=== PATIENT | female | born 1945 | race Caucasian/White ===

== ENCOUNTER → 2024-01-18 | Emergency (ER) | payer OTHER, BC ==
[~2024-01-18] MED LIST: ACETAMINOPHEN 500 MG TAB ONE; DIAZEPAM 5 MG TABLET ONE; FENTANYL CITR 100 MCG/2 ML ONE; KETOROLAC 30 MG/ML INJ ONE; LIDOCAINE 4% PATCH ONE
--- OUTSIDE RECORDS SUMMARY | 2024-01-18 12:02 | XMS REPORT | Continuity of Care Document ---
Author Name Unknown Address [address] [facility] [place] [address] [facility] thconnect Address [address] [facility] [address] [place] [address] Care Team Providers Care Child Care Name Role Phone Alysha Murrieta Primary Care Physician [phone] Cassidy Greenwood Attending Clinician Unavailable SEAN MCKEON Attending Clinician Sean Cantu MD Attending Clinician [phone] Doctor Unassigned, [place] Attending Clinician U oma Craft, [facility] Attending Clinician UnavailLEIA Quijano Attending Clinician Unavailable Leia Lauren DO Attending Clinician [phone] SEAN MCKEON Admitting Clinician Sean Cantu MD Admitting Clinician [phone] LEIA LAUREN Admitting Clinician Unavailable Payers Payer Name Policy Type Policy Number Effective Date Expiration Date Source MEDICARE PART A \\T\\ B [id number] 2008 00:00:00 BCBS TRADITIONAL [id number] 2017 00:00:00 [employer] [facility] HMO C1 [id number] [facility] MEDICARE NOVITAS MB [id number] [facility] [id number] [facility] [id number] [facility] [id number] [facility] Problems Condition Name Condition Details Condition Category Status Onset Date Resolution Date Last Treatment Date Treating Clinician Comments Source No known active problems No known active problems Disease [facility] [id number] Pulmonary emphysema, unspecifie d emphysema type Problem Active [facility] Acid reflux Acid reflux Problem Active [facility] Allergic rhinitis Allergic rhinitis Problem Active [facility] Essential hypertensi on Essential hypertensi on Problem Active [facility] Depression Depression Problem Active [facility] Hypothyroi dism Hypothyroi dism Problem Active [facility] Asthma Asthma Problem Active [facility] Anxiety Anxiety Problem Active [facility] Allergies, Adverse Reactions, Alerts Allergy Name Allergy Type Status Severity Reaction(s) Onset Date Inactive Date Treating Clinician Comments Source MORPHINE DRUG INGREDI Active Hives 11-24 00:00: 00 [facility] Morphine Propensi ty to adverse reaction s Active Hives 11-24 00:00: 00 [facility] morphine morphine Active Unknown Com[facility] n [facility] Social History Social Habit Start Date Stop Date Quantity Comments Source History of Tobacco Use Current Smoker [facility] Sex Assigned At [facility] Exposure to SARS-CoV-2 (event) 2022-09-02 00:00:00 2022-09-12 10:13:00 Not sure [facility] Tobacco use and exposure 2022-08-20 00:00:00 2022-08-20 00:00:00 Smokeless tobacco non-user [facility] Smoking Status Start Date Stop Date Source Tobacco smoking consumption unknown [facility] Never smoked tobacco [facility] Current Smoker 2021-06-05 00:00:00 [facility] Medications Ordered Medication Name Filled Medication Name Start Date Stop Date Current Medication? Ordering Clinician Indication Dosage Frequency Signature (SIG) Comments Components Source water for irrigation irrigation solution 2021-11 17:44: 00 09-17 18:24 :22 No PRN, Starting on Thu09/17/22 at 1144, Until Thu09/17/22 at 1224, Routine, Intra-op [facility] sodium chloride (NS) injection 2021-11 17:43: 00 09-17 18:24 :22 No PRN, Starting on Thu09/17/22 at 1143, Until Thu09/17/22 at 1224, Routine, Intra-op [facility] neomycin-po lymyxin-dex amethasone (MAXITROL) 3.5 mg/g-10,000 unit/g-0.1 % ophthalmic ointment 2021-11 17:43: 00 09-17 18:24 :22 No PRN, Starting on Thu09/17/22 at 1143, Until Thu09/17/22 at 1224, Routine, Intra-op [facility] Hyaluronida se, Human Recomb. (HYLENEX) injection 2021-11 17:43: 00 09-17 18:24 :22 No PRN, Starting on Thu09/17/22 at 1143, Until Thu09/17/22 at 1224, Routine, Intra-op [facility] eye block syringe 11 mL 2021-11 17:42: 00 09-17 18:24 :22 No PRN, Starting on Thu09/17/22 at 1142, Until Thu09/17/22 at 1224, Intra-op [facility] EPINEPHrine 1:1,000 (1 mg/mL) (ADRENALIN) injection 2021-11 17:40: 00 09-17 18:24 :22 No PRN, Starting on Thu09/17/22 at 1140, Until Thu09/17/22 at 1224, Routine, Intra-op [facility] chondroitin sulf-sod hyaluronate (DUOVISC VISCO ELASTIC) intraocular injection 2021-11 17:40: 00 09-17 18:24 :22 No PRN, Starting on Thu09/17/22 at 1140, Until Thu09/17/22 at 1224, Routine, Intra-op [facility] dexamethaso ne (DECADRON PHOSPHATE) injection 2021-11 17:40: 00 09-17 18:24 :22 No PRN, Starting on Thu09/17/22 at 1140, Until Thu09/17/22 at 1224, Routine, Intra-op [facility] ceFAZolin (ANCEF) injection 2021-11 17:39: 00 09-17 18:24 :22 No PRN, Starting on Thu09/17/22 at 1139, Until Thu09/17/22 at 1224, SANJANA, Intra-op [facility] carbachoL (MIOSTAT) 0.01 % intraocular injection 2021-11 17:38: 00 09-17 18:24 :22 No PRN, Starting on Thu09/17/22 at 1138, Until Thu09/17/22 at 1224, Routine, Intra-op [facility] balanced salt irrig soln comb1 (BSS PLUS) ophthalmic solution 500 mL bag 2021-11 17:37: 00 09-17 18:24 :22 No PRN, Starting on Thu09/17/22 at 1137, Until Thu09/17/22 at 1224, Routine, Intra-op [facility] cyclopent 1%-tropic 1%-phenyl 2.5%-ketor 0.5% (MYDRIATIC #5) ophthalmic solution syringe 0.5 mL 2021-11 16:45: 00 09-17 16:58 :00 No .5mL 0.5 mL, Left Eye, ONCE, 1 dose, On Thu09/17/22 at 1045, Routine, [facility] 1,000 mL 2021-11 16:45: 00 09-17 16:58 :00 No 1000mL at 42 mL/hr, 1,000 mL, IV Infusion, ONCE, 1 dose, On Thu09/17/22 at 1045, Routine, DSU Pre-op [facility] cyclopent 1%-tropic 1%-phenyl 2.5%-ketor 0.5% (MYDRIATIC #5) ophthalmic solution syringe 0.5 mL 2021-11 16:45: 00 09-17 16:58 :00 No .5mL 0.5 mL, Left Eye, ONCE, 1 dose, On Thu09/17/22 at 1045, Routine, DSU Pre-op [facility] lactated ringers IV infusion 1,000 mL 2021-11 16:45: 00 09-17 16:58 :00 No 1000mL at 42 mL/hr, 1,000 mL, IV Infusion, ONCE, 1 dose, On Thu09/17/22 at 1045, Routine, DSU Pre-op [facility] pantoprazol e 40 mg EC tablet 2021-11 13:15: 30 Yes 40mg Take 40 mg by mouth in the morning. [facility] diphenhydrA MINE 25 mg capsule 2021-11 13:15: 30 Yes 25mg Take 25 mg by mouth every 6 (six) hours as needed for Allergies. [facility] pantoprazol e 40 mg EC tablet 2021-11 13:15: 30 Yes 40mg Take 40 mg by mouth in the morning. [facility] diphenhydrA MINE 25 mg capsule 2021-11 13:15: 30 Yes 25mg Take 25 mg by mouth every 6 (six) hours as needed for Allergies. [facility] pantoprazol e 40 mg EC tablet 2021-11 10:10: 51 Yes 40mg Take 40 mg by mouth in the morning. [facility] diphenhydrA MINE 25 mg capsule 2021-11 10:10: 51 Yes 25mg Take 25 mg by mouth every 6 (six) hours as needed for Allergies. [facility] sodium chloride (NS) injection 2021-11 0 17:39: 00 08-27 17:43 :26 No PRN, Starting on Thu08/27/22 at 1239, Until Thu08/27/22 at 1243, Routine, Intra-op [facility] neomycin-po lymyxin-dex amethasone (MAXITROL) 3.5 mg/g-10,000 unit/g-0.1 % ophthalmic ointment 2021-11 17:39: 00 08-27 17:43 :26 No PRN, Starting on Thu08/27/22 at 1239, Until Thu08/27/22 at 1243, Routine, [facility] dexamethaso ne (DECADRON PHOSPHATE) injection 2021-11 17:39: 00 08-27 17:43 :26 No PRN, Starting on Thu08/27/22 at 1239, Until Thu08/27/22 at 1243, Routine, Intra-op [facility] ceFAZolin (ANCEF) injection 2021-11 17:39: 00 08-27 17:43 :26 No PRN, Starting on Thu08/27/22 at 1239, Until Thu08/27/22 at 1243, SANJANA, Intra-op [facility] carbachoL (MIOSTAT) 0.01 % intraocular injection 2021-11 17:38: 00 08-27 17:43 :26 No PRN, Starting on Thu08/27/22 at 1238, Until Thu08/27/22 at 1243, Routine, Intra-op [facility] chondroitin sulf-sod hyaluronate (DUOVISC VISCO ELASTIC) intraocular injection 2021-11 17:29: 00 08-27 17:43 :26 No PRN, Starting on Thu08/27/22 at 1229, Until Thu08/27/22 at 1243, Routine, Intra-op [facility] EPINEPHrine 1:1,000 (1 mg/mL) (ADRENALIN) injection 2021-11 17:28: 00 08-27 17:43 :26 No PRN, Starting on Thu08/27/22 at 1228, Until Thu08/27/22 at 1243, Routine, Intra-op [facility] balanced salt irrig soln comb1 (BSS PLUS) ophthalmic solution 500 mL bag 2021-11 17:28: 00 08-27 17:43 :26 No PRN, Starting on Thu08/27/22 at 1228, Until Thu08/27/22 at 1243, Routine, Intra-op [facility] water for irrigation irrigation solution 2021-11 17:22: 00 08-27 17:43 :26 No PRN, Starting on Thu08/27/22 at 1222, Until Thu08/27/22 at 1243, Routine, Intra-op [facility] Hyaluronida se, Human Recomb. (HYLENEX) injection 2021-11 17:18: 00 08-27 17:43 :26 No PRN, Starting on Thu08/27/22 at 1218, Until Thu08/27/22 at 1243, Routine, Intra-op [facility] eye block syringe 11 mL 2021-11 17:18: 00 08-27 17:43 :26 No PRN, Starting on Thu08/27/22 at 1218, Until Thu08/27/22 at 1243, Intra-op [facility] cyclopent 1%-tropic 1%-phenyl 2.5%-ketor 0.5% (MYDRIATIC #5) ophthalmic solution syringe 0.5 mL 2021-11 15:45: 00 08-27 15:50 :00 No .5mL 0.5 mL, Right Eye, ONCE, 1 dose, On Thu08/27/22 at 1045, Routine, DSU Pre-op [facility] lactated ringers IV infusion 1,000 mL 2021-11 15:45: 00 08-27 15:50 :00 No 1000mL at 42 mL/hr, 1,000 mL, IV Infusion, ONCE, 1 dose, On Thu08/27/22 at 1045, Routine, DSU Pre-op [facility] cyclopent 1%-tropic 1%-phenyl 2.5%-ketor 0.5% (MYDRIATIC #5) ophthalmic solution syringe 0.5 mL 2021-11 15:45: 00 08-27 15:50 :00 No .5mL 0.5 mL, Right Eye, ONCE, 1 dose, On Thu08/27/22 at 1045, Routine, DSU Pre-op [facility] lactated ringers IV infusion 1,000 mL 2021-11 15:45: 00 08-27 15:50 :00 No 1000mL at 42 mL/hr, 1,000 mL, IV Infusion, ONCE, 1 dose, On Thu08/27/22 at 1045, Routine, DSU Pre-op [facility] pantoprazol e 40 mg EC tablet 2021-11 13:28: 43 Yes 40mg Take 40 mg by mouth in the morning. [facility] pantoprazol e 40 mg EC tablet 2021-11 13:28: 43 Yes 40mg Take 40 mg by mouth in the morning. [facility] pantoprazol e 40 mg EC tablet 2021-11 13:28: 43 Yes 40mg Take 40 mg by mouth in the morning. [facility] benzonatate 200 mg capsule 2021-11 00:00: 00 Yes 200mg Take 200 mg by mouth as needed. [facility] benzonatate 200 mg capsule 2021-11 00:00: 00 Yes 200mg Take 200 mg by mouth as needed. [facility] benzonatate 200 mg capsule 2021-11 00:00: 00 Yes 200mg Take 200 mg by mouth as needed. [facility] benzonatate 200 mg capsule 2021-11 00:00: 00 Yes 200mg Take 200 mg by mouth as needed. [facility] benzonatate 200 mg capsule 2021-11 00:00: 00 Yes 200mg Take 200 mg by mouth as needed. [facility] benzonatate 200 mg capsule 2021-11 00:00: 00 Yes 200mg Take 200 mg by mouth as needed. [facility] triamterene -hydrochlor othiazide 37.5-25 mg per capsule 2021-11 0- 00:00: 00 Yes 1{capsu le} Take 1 capsule by mouth in the morning. [facility] triamterene -hydrochlor othiazide 37.5-25 mg per capsule 2021-11 0-09 00:00: 00 Yes 1{capsu le} Take 1 capsule by mouth in the morning. [facility] triamterene -hydrochlor othiazide 37.5-25 mg per capsule 2021-11 0-09 00:00: 00 Yes 1{capsu le} Take 1 capsule by mouth in the morning. [facility] triamterene -hydrochlor othiazide 37.5-25 mg per capsule 2021-11 0-09 00:00: 00 Yes 1{capsu le} Take 1 capsule by mouth in the morning. [facility] triamterene -hydrochlor othiazide 37.5-25 mg per capsule 2021-11 0- 00:00: 00 Yes 1{capsu le} Take 1 capsule by mouth in the morning. [facility] triamterene -hydrochlor othiazide 37.5-25 mg per capsule 2021-11 0 00:00: 00 Yes 1{capsu le} Take 1 capsule by mouth in the morning. [facility] metoprolol succinate XL 50 mg 24 hr tablet 07-28 00:00: 00 Yes 50mg Take 50 mg by mouth in the morning. [facility] albuterol 90 mcg/actuati on inhaler 07-28 00:00: 00 Yes 2{puff} Inhale 2 Puffs as needed. [facility] metoprolol succinate XL 50 mg 24 hr tablet 07-28 00:00: 00 Yes 50mg Take 50 mg by mouth in the morning. [facility] albuterol 90 mcg/actuati on inhaler 07-28 00:00: 00 Yes 2{puff} Inhale 2 Puffs as needed. [facility] metoprolol succinate XL 50 mg 24 hr tablet 07-28 00:00: 00 Yes 50mg Take 50 mg by mouth in the morning. [facility] albuterol 90 mcg/actuati on inhaler 07-28 00:00: 00 Yes 2{puff} Inhale 2 Puffs as needed. [facility] metoprolol succinate XL 50 mg 24 hr tablet 07-28 00:00: 00 Yes 50mg Take 50 mg by mouth in the morning. [facility] albuterol 90 mcg/actuati on inhaler 07-28 00:00: 00 Yes 2{puff} Inhale 2 Puffs as needed. [facility] metoprolol succinate XL 50 mg 24 hr tablet 07-28 00:00: 00 Yes 50mg Take 50 mg by mouth in the morning. [facility] albuterol 90 mcg/actuati on inhaler 07-28 00:00: 00 Yes 2{puff} Inhale 2 Puffs as needed. [facility] metoprolol succinate XL 50 mg 24 hr tablet 07-28 00:00: 00 Yes 50mg Take 50 mg by mouth in the morning. [facility] albuterol 90 mcg/actuati on inhaler 07-28 00:00: 00 Yes 2{puff} Inhale 2 Puffs as needed. [facility] cetirizine 10 mg tablet 07-28 00:00: 00 08-20 00:00 :00 No 10mg Take 10 mg by mouth in the morning. [facility] cetirizine 10 mg tablet 07-28 00:00: 00 08-20 00:00 :00 No 10mg Take 10 mg by mouth in the morning. [facility] FLUoxetine 20 mg capsule 07-14 00:00: 00 Yes 20mg Take 20 mg by mouth in the morning. [facility] buPROPion XL 300 mg 24 hr tablet 07-14 00:00: 00 Yes 300mg Take 300 mg by mouth every morning. [facility] FLUoxetine 20 mg capsule 07-14 00:00: 00 Yes 20mg Take 20 mg by mouth in the morning. [facility] buPROPion XL 300 mg 24 hr tablet 2-0 12 00:00: 00 Yes 300mg Take 300 mg by mouth every morning. [facility] FLUoxetine 20 mg capsule 2021-0 07-14 00:00: 00 Yes 20mg Take 20 mg by mouth in the morning. [facility] buPROPion XL 300 mg 24 hr tablet 2021-0 07-14 00:00: 00 Yes 300mg Take 300 mg by mouth every morning. [facility] FLUoxetine 20 mg capsule 2021-0 07-14 00:00: 00 Yes 20mg Take 20 mg by mouth in the morning. [facility] buPROPion XL 300 mg 24 hr tablet 2021-0 07-14 00:00: 00 Yes 300mg Take 300 mg by mouth every morning. [facility] FLUoxetine 20 mg capsule 2021-0 07-14 00:00: 00 Yes 20mg Take 20 mg by mouth in the morning. [facility] buPROPion XL 300 mg 24 hr tablet 2021-0 07-14 00:00: 00 Yes 300mg Take 300 mg by mouth every morning. [facility] FLUoxetine 20 mg capsule 2021-0 07-14 00:00: 00 Yes 20mg Take 20 mg by mouth in the morning. [facility] buPROPion XL 300 mg 24 hr tablet 2021-0 07-14 00:00: 00 Yes 300mg Take 300 mg by mouth every morning. [facility] montelukast 10 mg tablet 2021-0 07-08 00:00: 00 Yes 10mg Take 10 mg by mouth in the morning. [facility] montelukast 10 mg tablet 2-0 07-08 00:00: 00 Yes 10mg Take 10 mg by mouth in the morning. [facility] montelukast 10 mg tablet 2021-0 07-08 00:00: 00 Yes 10mg Take 10 mg by mouth in the morning. [facility] montelukast 10 mg tablet 2-0 07-08 00:00: 00 Yes 10mg Take 10 mg by mouth in the morning. [facility] montelukast 10 mg tablet 07-08 00:00: 00 Yes 10mg Take 10 mg by mouth in the morning. [facility] montelukast 10 mg tablet 07-08 00:00: 00 Yes 10mg Take 10 mg by mouth in the morning. [facility] EUTHYROX 75 mcg tablet 07-03 00:00: 00 Yes 75ug Take 75 mcg by mouth every morning. [facility] EUTHYROX 75 mcg tablet 07-03 00:00: 00 Yes 75ug Take 75 mcg by mouth every morning. [facility] EUTHYROX 75 mcg tablet 0 07-03 00:00: 00 Yes 75ug Take 75 mcg by mouth every morning. [facility] EUTHYROX 75 mcg tablet 07-03 00:00: 00 Yes 75ug Take 75 mcg by mouth every morning. [facility] EUTHYROX 75 mcg tablet 07-03 00:00: 00 Yes 75ug Take 75 mcg by mouth every morning. [facility] EUTHYROX 75 mcg tablet 07-03 00:00: 00 Yes 75ug Take 75 mcg by mouth every morning. [facility] TRELEGY ELLIPTA 100-62.5-25 mcg DsDv 2021-0 07-02 00:00: 00 Yes 1{puff} Take 1 Puff by mouth daily. [facility] TRELEGY ELLIPTA 100-62.5-25 mcg DsDv 2-0 07-02 00:00: 00 Yes 1{puff} Take 1 Puff by mouth daily. [facility] TRELEGY ELLIPTA 100-62.5-25 mcg DsDv 2-0 07-02 00:00: 00 Yes 1{puff} Take 1 Puff by mouth daily. [facility] TRELEGY ELLIPTA 100-62.5-25 mcg DsDv 2-0 07-02 00:00: 00 Yes 1{puff} Take 1 Puff by mouth daily. [facility] TRELEGY ELLIPTA 100-62.5-25 mcg DsDv 2-0 8 00:00: 00 Yes 1{puff} Take 1 Puff by mouth daily. [facility] TRELEGY ELLIPTA 100-62.5-25 mcg DsDv 8-31 00:00: 00 Yes 1{puff} Take 1 Puff by mouth daily. [facility] gabapentin 600 mg tablet 0 8-12 00:00: 00 Yes 600mg Take 600 mg by mouth in the morning. [facility] cetirizine HCl (CETIRIZINE ORAL) 8-12 00:00: 00 Yes 10mg Take 10 mg by mouth daily. [facility] gabapentin 600 mg tablet 0 812 00:00: 00 Yes 600mg Take 600 mg by mouth in the morning. [facility] cetirizine HCl (CETIRIZINE ORAL) 812 00:00: 00 Yes 10mg Take 10 mg by mouth daily. [facility] gabapentin 600 mg tablet 0 812 00:00: 00 Yes 600mg Take 600 mg by mouth in the morning. [facility] cetirizine HCl (CETIRIZINE ORAL) 0 812 00:00: 00 Yes 10mg Take 10 mg by mouth daily. [facility] gabapentin 600 mg tablet 812 00:00: 00 Yes 600mg Take 600 mg by mouth in the morning. [facility] cetirizine HCl (CETIRIZINE ORAL) 0 8-12 00:00: 00 Yes 10mg Take 10 mg by mouth daily. [facility] gabapentin 600 mg tablet 0 812 00:00: 00 Yes 600mg Take 600 mg by mouth in the morning. [facility] cetirizine HCl (CETIRIZINE ORAL) 0 8-12 00:00: 00 Yes 10mg Take 10 mg by mouth daily. [facility] gabapentin 600 mg tablet 0 8-12 00:00: 00 Yes 600mg Take 600 mg by mouth in the morning. [facility] cetirizine HCl (CETIRIZINE ORAL) 2022-0 8-12 00:00: 00 Yes 10mg Take 10 mg by mouth daily. [facility] NaCl 0.9% (NS) bolus infusion 1,000 mL 11-25 01:30: 00 11-25 03:09 :00 No 1000mL at 999 mL/hr, 1,000 mL, IV Infusion, ONCE, 1 dose, On 11/24/21 at 1930, STAT [facility] No known medications 11-24 21:42: 38 No [facility] No known medications 11-24 21:42: 38 No No known medication s [facility] No known medications 11-24 21:42: 38 No No known medication s [facility] predniSONE 20 MG predniSONE 20 MG 04-24 00:00: 00 05-08 00:00 :00 No 1{table t} predniSONE 20 MG Levothyroxi ne Sodium 75 MCG Levothyroxi ne Sodium 75 MCG No QD Levothyrox ine Sodium 75 MCG Triamterene -HCTZ 37.5-25 MG Triamterene -HCTZ 37.5-25 MG No QD Triamteren e-HCTZ 37.5-25 MG Fluticasone Propionate 50 MCG/ACT Fluticasone Propionate 50 MCG/ACT No QD Fluticason e Propionate 50 MCG/ACT Albuterol Sulfate HFA 108 (90 Base) MCG/ACT Albuterol Sulfate HFA 108 (90 Base) MCG/ACT No 6xD Albuterol Sulfate HFA 108 (90 Base) MCG/ACT Fluoxetine HCl 20 MG Fluoxetine HCl 20 MG No QD Fluoxetine HCl 20 MG Pantoprazol e Sodium 40 MG Pantoprazol e Sodium 40 MG No Pantoprazo le Sodium 40 MG Montelukast Sodium 10 MG Montelukast Sodium 10 MG No QD Montelukas t Sodium 10 MG Metoprolol Succinate ER 50 MG Metoprolol Succinate ER 50 MG No QD Metoprolol Succinate ER 50 MG BuPROPion HCl ER (XL) 300 MG BuPROPion HCl ER (XL) 300 MG No QD BuPROPion HCl ER (XL) 300 MG Gabapentin 600 MG Gabapentin 600 MG No QD Gabapentin 600 MG Gabapentin 600 MG Gabapentin 600 MG No QD Gabapentin 600 MG Metoprolol Succinate ER 50 MG Metoprolol Succinate ER 50 MG No QD Metoprolol Succinate ER 50 MG buPROPion HCl ER (XL) 300 MG buPROPion HCl ER (XL) 300 MG No QD buPROPion HCl ER (XL) 300 MG Montelukast Sodium 10 MG Montelukast Sodium 10 MG No QD Montelukas t Sodium 10 MG FLUoxetine HCl 20 MG FLUoxetine HCl 20 MG No QD FLUoxetine HCl 20 MG Triamterene -HCTZ 37.5-25 MG Triamterene -HCTZ 37.5-25 MG No QD Triamteren e-HCTZ 37.5-25 MG Pantoprazol e Sodium 40 MG Pantoprazol e Sodium 40 MG No Pantoprazo le Sodium 40 MG Albuterol Sulfate HFA 108 (90 Base) MCG/ACT Albuterol Sulfate HFA 108 (90 Base) MCG/ACT No 6xD Albuterol Sulfate HFA 108 (90 Base) MCG/ACT Levothyroxi ne Sodium 75 MCG Levothyroxi ne Sodium 75 MCG No QD Levothyrox ine Sodium 75 MCG Fluticasone Propionate 50 MCG/ACT Fluticasone Propionate 50 MCG/ACT No QD Fluticason e Propionate 50 MCG/ACT Gabapentin 600 MG Gabapentin 600 MG No QD Gabapentin 600 MG FLUoxetine HCl 20 MG FLUoxetine HCl 20 MG No QD FLUoxetine HCl 20 MG Metoprolol Succinate ER 50 MG Metoprolol Succinate ER 50 MG No QD Metoprolol Succinate ER 50 MG Triamterene -HCTZ 37.5-25 MG Triamterene -HCTZ 37.5-25 MG No QD Triamteren e-HCTZ 37.5-25 MG Montelukast Sodium 10 MG Montelukast Sodium 10 MG No QD Montelukas t Sodium 10 MG Albuterol Sulfate HFA 108 (90 Base) MCG/ACT Albuterol Sulfate HFA 108 (90 Base) MCG/ACT No 6xD Albuterol Sulfate HFA 108 (90 Base) MCG/ACT buPROPion HCl ER (XL) 300 MG buPROPion HCl ER (XL) 300 MG No QD buPROPion HCl ER (XL) 300 MG Fluticasone Propionate 50 MCG/ACT Fluticasone Propionate 50 MCG/ACT No QD Fluticason e Propionate 50 MCG/ACT Pantoprazol e Sodium 40 MG Pantoprazol e Sodium 40 MG No Pantoprazo le Sodium 40 MG Levothyroxi ne Sodium 75 MCG Levothyroxi ne Sodium 75 MCG No QD Levothyrox ine Sodium 75 MCG Gabapentin 600 MG Gabapentin 600 MG No QD Gabapentin 600 MG FLUoxetine HCl 20 MG FLUoxetine HCl 20 MG No QD FLUoxetine HCl 20 MG Metoprolol Succinate ER 50 MG Metoprolol Succinate ER 50 MG No QD Metoprolol Succinate ER 50 MG Triamterene -HCTZ 37.5-25 MG Triamterene -HCTZ 37.5-25 MG No QD Triamteren e-HCTZ 37.5-25 MG Montelukast Sodium 10 MG Montelukast Sodium 10 MG No QD Montelukas t Sodium 10 MG Albuterol Sulfate HFA 108 (90 Base) MCG/ACT Albuterol Sulfate HFA 108 (90 Base) MCG/ACT No 6xD Albuterol Sulfate HFA 108 (90 Base) MCG/ACT buPROPion HCl ER (XL) 300 MG buPROPion HCl ER (XL) 300 MG No QD buPROPion HCl ER (XL) 300 MG Fluticasone Propionate 50 MCG/ACT Fluticasone Propionate 50 MCG/ACT No QD Fluticason e Propionate 50 MCG/ACT Pantoprazol e Sodium 40 MG Pantoprazol e Sodium 40 MG No Pantoprazo le Sodium 40 MG Levothyroxi ne Sodium 75 MCG Levothyroxi ne Sodium 75 MCG No QD Levothyrox ine Sodium 75 MCG Symbicort 160-4.5 MCG/ACT Symbicort 160-4.5 MCG/ACT 09-01 00:00 :00 No BID Symbicort 160-4.5 MCG/ACT Symbicort 160-4.5 MCG/ACT Symbicort 160-4.5 MCG/ACT 09-01 00:00 :00 No BID Symbicort 160-4.5 MCG/ACT Symbicort 160-4.5 MCG/ACT Symbicort 160-4.5 MCG/ACT 09-01 00:00 :00 No BID Symbicort 160-4.5 MCG/ACT Symbicort 160-4.5 MCG/ACT Symbicort 160-4.5 MCG/ACT 09-01 00:00 :00 No BID Symbicort 160-4.5 MCG/ACT Vital Signs Vital Name Observation Time Observation Value Comments S ource Systolic blood pressure 2022-09-17 18:40:00 121 mm[Hg] [facility] Diastolic blood pressure 2022-09-17 18:40:00 54 mm[Hg] [facility] Heart rate 2022-09-17 18:40:00 53 /min [facility] Respiratory rate 2022-09-17 18:40:00 15 /min [facility] Oxygen saturation in Arterial blood by Pulse oximetry 2022-09-17 18:40:00 98 /min [facility] Body temperature 2022-09-17 18:26:00 36.56 Eneida [facility] Body height 2022-09-17 16:48:[address] [facility] Body weight 2022-09-17 16:48:00 54.432 kg [facility] BMI 2022-09-17 16:48:00 20.92 kg/m2 [facility] Systolic blood pressure 2022-09-17 16:48:00 147 mm[Hg] [facility] Diastolic blood pressure 2022-09-17 16:48:00 43 mm[Hg] [facility] Heart rate 2022-09-17 16:48:00 44 /min [facility] Body temperature 2022-09-17 16:48:00 36.22 Eneida [facility] Respiratory rate 2022-09-17 16:48:00 12 /min [facility] Body height 2022-09-17 16:48:[address] [facility] Body weight 2022-09-17 16:48:00 54.432 kg [facility] BMI 2022-09-17 16:48:00 20.92 kg/m2 [facility] Oxygen saturation in Arterial blood by Pulse oximetry 2022-09-17 16:48:00 98 /min [facility] Heart rate 2022-08-27 18:00:00 56 /min [facility] Respiratory rate 2022-08-27 18:00:00 51 /min [facility] Systolic blood pressure 2022-08-27 17:59:00 153 mm[Hg] [facility] Diastolic blood pressure 2022-08-27 17:59:00 54 mm[Hg] [facility] Body temperature 2022-08-27 17:59:00 36.11 Eneida [facility] Oxygen saturation in Arterial blood by Pulse oximetry 2022-08-27 17:57:00 95 /min [facility] Body weight 2022-08-20 16:00:00 54.432 kg [facility] BMI 2022-08-20 16:00:00 21.26 kg/m2 [facility] Systolic blood pressure 2022-08-27 15:47:00 161 mm[Hg] [facility] Diastolic blood pressure 2022-08-27 15:47:00 58 mm[Hg] [facility] Heart rate 2022-08-27 15:47:00 48 /min [facility] Body temperature 2022-08-27 15:47:00 36.11 Eneida [facility] Respiratory rate 2022-08-27 15:47:00 16 /min [facility] Oxygen saturation in Arterial blood by Pulse oximetry 2022-08-27 15:47:00 97 /min [facility] Body weight 2022-08-20 16:00:00 54.432 kg [facility] BMI 2022-08-20 16:00:00 21.26 kg/m2 [facility] Heart rate 2021-11-25 03:10:00 52 /min [facility] Respiratory rate 2021-11-25 03:10:00 15 /min [facility] Oxygen saturation in Arterial blood by Pulse oximetry 2021-11-25 03:10:00 94 /min [facility] Systolic blood pressure 2021-11-25 03:00:00 114 mm[Hg] [facility] Diastolic blood pressure 2021-11-25 03:00:00 62 mm[Hg] [facility] Body temperature 2021-11-25 01:10:00 37.5 Eneida [facility] Body height 2021-11-25 01:10:00 160 cm [facility] Body weight 2021-11-25 01:10:00 55.339 kg [facility] BMI 2021-11-25 01:10:00 21.61 kg/m2 [facility] height 2021-06-05 10:00:00 62 [in_i] Commo n [facility] weight 2021-06-05 10:00:00 126.6 [lb_av] Co mmon [facility] temperature 2021-06-05 10:00:00 98.2 [degF] Com mon [facility] bmi 2021-06-05 10:00:00 23.15 kg/m2 Comm on [facility] oximetry 2021-06-05 10:00:00 96 % Commo n [facility] respiratory rate 2021-06-05 10:00:00 18 /min [facility] blood pressure systolic 2021-06-05 10:00:00 124 mm[Hg] [facility] blood pressure diastolic 2021-06-05 10:00:00 55 mm[Hg] [facility] blood pressure diastolic 2021-06-05 10:00:00 55 mm[Hg] [facility] height 2021-06-05 10:00:00 62 [in_i] Commo n [facility] weight 2021-06-05 10:00:00 126.6 [lb_av] Co mmon [facility] temperature 2021-06-05 10:00:00 98.2 [degF] Com mon [facility] bmi 2021-06-05 10:00:00 23.15 kg/m2 Comm on [facility] oximetry 2021-06-05 10:00:00 96 % Commo n [facility] blood pressure systolic 2021-06-05 10:00:00 124 mm[Hg] [facility] height 2021-03-05 09:00:00 62 [in_i] Commo n [facility] weight 2021-03-05 09:00:00 125.8 [lb_av] Co mmon [facility] temperature 2021-03-05 09:00:00 98.4 [degF] Com mon [facility] bmi 2021-03-05 09:00:00 23.01 kg/m2 Comm on [facility] oximetry 2021-03-05 09:00:00 95 % Commo n [facility] respiratory rate 2021-03-05 09:00:00 16 /min [facility] blood pressure systolic 2021-03-05 09:00:00 119 mm[Hg] [facility] blood pressure diastolic 2021-03-05 09:00:00 57 mm[Hg] [facility] Procedures Procedure Date / Time Performed Performing Clinician Source PHACOEMULSIFICATION OF CATARACT WITH INTRAOCULAR LENS IMPLANT 2022-09-17 17:48:00 Sean Mckeon [facility] ASSIGNMENT OF BENEFITS 2022-09-15 16:29:04 Doctor Unassigned, [place] [facility] PHACOEMULSIFICATION OF CATARACT WITH INTRAOCULAR LENS IMPLANT 2022-08-27 17:06:00 Sean Mckeon [facility] POCT GLUCOSE (AUTOMATED) 2022-08-27 15:47:00 Sean Mckeon [facility] POCT GLUCOSE (AUTOMATED) 2022-08-27 15:47:00 Sean Mckeon [facility] DAY SURGERY - ADC 2022-08-27 05:01:00 Doctor Unassigned, [place] [facility] ASSIGNMENT OF BENEFITS 2022-08-18 17:10:39 Doctor Unassigned, [place] [facility] URINALYSIS 2021-11-25 02:38:00 Leia Lauren [facility] XR CHEST 1 VW 2021-11-25 01:32:14 Leia Lauren [facility] NOTICE OF PRIVACY PRACTICES 2021-11-25 01:31:09 Doctor Unassigned, [place] [facility] CONSENT/REFUSAL FOR DIAGNOSI S AND TREATMENT 2021-11-25 01:29:59 Doctor Unassigned, [place] [facility] CONSENT/REFUSAL FOR DIAGNOSI S AND TREATMENT 2021-11-25 01:29:58 Doctor Unassigned, [place] [facility] TROPONIN I 2021-11-25 01:27:00 Leia Lauren [facility] COMP. METABOLIC PANEL ([id number]) 2021-11-25 01:27:00 Leia Lauren [facility] CBC WITH DIFF 2021-11-25 01:27:00 Leia Lauren [facility] COVID-19 (ID NOW RAPID TESTING) 2021-11-25 01:27:00 Leia Lauren [facility] Encounters Start Date/Time End Date/Time Encounter Type Admission Type Attending [facility] Care Facility Care Department Encounter ID Source 2021-11-27 12:58:[address] [facility] [id number] [facility] 2022-09-17 10:43:00 2022-09-17 12:51:00 Outpatient SEAN MATTHEWS [facility] [id number] [facility] 2022-09-17 10:43:00 2022-09-17 12:51:[address] [id number] [id number] [id number] [facility] 2022-09-17 11:26:00 2022-09-17 11:59:00 Surgery [facility] [id number] 350.1.13.10 [id number] [id number] [facility] 2022-09-15 00:00:00 2022-09-15 00:00:00 Orders Only Doctor Unassigned, [place] [facility] [id number] 350.1.13.10 4.2.7.2.686 [id number] [facility] 2022-08-27 10:32:00 2022-08-27 13:12:00 Outpatient [facility] [id number] [facility] 2022-08-27 10:32:00 2022-08-27 13:12:00 Hospital Encounter Sean Mckeon [facility] [place] [id number] 350.1.13.10 4.2.7.2.686 [id number] [facility] 2022-08-27 11:11:00 2022-08-27 11:44:00 Surgery Sean Mckeon [facility] [place] [id number] [id number] 4.2.7.2.686 [id number] [facility] 2022-08-27 00:00:00 2022-08-27 00:00:00 Orders Only Doctor Unassigned, [place] [facility] [id number] 350.1.13.10 4.2.7.2.686 [id number] [facility] 2022-08-18 11:45:00 2022-08-18 12:00:00 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, 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 Main Sean Mckeon [facility] [id number] 350.1.13.10 4.2.7.2.686 [id number] [facility] 2022-08-18 11:45:00 2022-08-18 11:45:00 Outpatient R SEAN MCKEON [facility] [id number] [facility] 2022-08-18 00:00:00 2022-08-18 00:00:00 Orders Only Doctor Unassigned, [place] [facility] 1.20.114 350.1.13.10 4.2.7.2.686 [id number] [facility] 2021-11-24 19:03:00 2021-11-24 21:55:00 Emergency X LEIA LAUREN [facility] ERT [id number] [facility] 2021-11-24 19:03:00 2021-11-24 21:55:00 Emergency Leia Lauren [facility] [id number] 350.1.13.10 4.2.7.2.686 [id number] [facility] 2021-06-05 00:00:00 2021-06-05 00:00:00 OFFICE VISIT ESTAB PT LEVEL 4 STLMLC STLMLC [id number] [facility] 2021-06-05 00:00:00 2021-06-05 00:00:00 SUB ANNUAL [facility] VISIT STLMLC STLMLC [id number] [facility] 2021-04-24 00:00:00 2021-04-24 00:00:00 (TEL) STLMLC STLMLC [id number] [facility] 2021-03-05 00:00:00 2021-03-05 00:00:00 OFFICE VISIT NEW PT LEVEL 4 STLMLC STLMLC [id number] [facility] Results Test Description Test Time Test Comments Results Result Co mments Source [facility] 15:53:58* Test Item Value Reference Range Interpretation Comme nts POCT GLU (test code = 0586701276) 90 mg/dL 70-110 Lab Interpretation (test cod e = 42866-5) Normal [id number] 02:20:46* Test Item Value Reference Range Interpretation Comments TROPONIN I (test code = 8489168051) 0.006 ng/mL See_Comment [Automated message] The system which generated this result transmitted reference range: <=0.034. The reference range was not used to interpret this result as normal/abnormal. MARCO (test code = MARCO) Reference (Normal) Range (defined by the 99th percentile reference limit): <= 0.034 ng/mL Note: Cardiac troponin begins to rise 3-4 hours after the onset of ischemia. Repeat in 4-6 hours if the sample was drawn within 3-4 hours of the onset of the symptom and found normal. Diagnosis of myocardial injury is made with acute changes in cTn concentrations with at least one serial sample above the 99th percentile upper reference limit (URL), taken together with the patient's clinical presentation. Biotin has been reported to cause a negative bias, interpret results relative to patient's use of biotin. Lab Interpretation (test code = 04271-7) Normal [facility]. METABOLIC PANEL (86991)2021-11-25 02:08:03* Test Item Value Reference Range Interpretation Comme nts NA (test code = 2661416954) 128 mmol/L 135-145 L K (test code = 4240159109) 4.1 mmol/L 3.5-5.0 CL (test code = 5496722182) 97 mmol/L 98-108 L CO2 TOTAL (test code = 6797754712) 26 mmol/L 23-31 AGAP (test code = 5684571580) 2-16 BUN (test code = 8669132256) 17 mg/dL 7-23 GLUCOSE (test code = 6236258493) 104 mg/dL 70-110 CREATININE (test code = 3861577629) 0.97 mg/dL 0.50-1.04 TOTAL BILI (test code = 2205612306) 0.5 mg/dL 0.1-1.1 CALCIUM (test code = 1630481353) 8.7 mg/dL 8.6-10.6 T PROTEIN (test code = 2784001803) 6.5 g/dL 6.3-8.2 ALBUMIN (test code = 1173784815) 3.9 g/dL 3.5-5.0 ALK PHOS (test code = 5530830089) 85 U/L 34-122 ALTv (test code = 1742-6) 15 U/L 5-35 AST(SGOT) (test code = 4680627657) 27 U/L 13-40 eGFR (test code = 8866649672) mL/min/1.73m2 MARCO (test code = MARCO) Association of Glomerular Filtration Rate (GFR) and Staging of Kidney Disease* + --+ --+ ------+| GFR (mL/min/1.73 m2) ?| With Kidney Damage ?| ?Without Kidney Damage+ --------+ --------+ +| ?>90 ?| ?Stage one ?| ? Normal ?+ ---+ ---+ -------+| ?60-89 ?| ?Stage two ?| ? Decreased GFR ? + --+ --+ ------+| ?30-59 ?| ?Stage three ?| ? Stage three ? + --+ --+ ------+| ?15-29 ?| ?Stage four ? | ? Stage four ?+ ---+ ---+ -------+| ?<15 (or dialysis) ? ?| ?Stage five ? | ? Stage five ?+ ---+ ---+ -------+ *Each stage assumes the associated GFR level has been in effect for at least three months. ?Stages 1 to 5, with or without kidney disease, indicate chronic kidney disease. Notes: Determination of stages one and two (with eGFR >59mL/min/1.73 m2) requires estimation of kidney damage for at least three months as defined by structural or functional abnormalities of the kidney, manifested by either:Pathological abnormalities or Markers of kidney damage (including abnormalities in the composition of the blood or urine or abnormalities in imaging tests). Lab Interpretation (test code = 13775-5) Abnormal [facility] WITH [id number] 01:51:42* Test Item Value Reference Range Interpretation Comme nts WBC (test code = 6690-2) See_Comment [Quaero] The system which generated this result transmitted reference range: 4.30 - 11.10 10*3/?L. The reference range was not used to interpret this result as normal/abnormal. RBC (test code = 789-8) See_Comment [Quaero] The system which generated this result transmitted reference range: 3.93 - 5.25 10*6/?L. The reference range was not used to interpret this result as normal/abnormal. HGB (test code = 718-7) 13.6 g/dL 11.6-15.0 HCT (test code = 4544-3) 38.8 % 35.7-45.2 MCV (test code = 787-2) 90.4 fL 80.6-95.5 MCH (test code = 785-6) 31.7 pg 25.9-32.8 MCHC (test code = 786-4) 35.1 g/dL 31.6-35.1 RDW-SD (test code = 72469-4) 39.7 fL 39.0-49.9 RDW-CV (test code = 788-0) 12.0 % 12.0-15.5 PLT (test code = 777-3) See_Comment [Automated messa ge] The system which generated this result transmitted reference range: 166 - 358 10*3/?L. The reference range was not used to interpret this result as normal/abnormal. MPV (test code = 47956-4) 9.4 fL 9.5-12.9 L NRBC/100 WBC (test code = 7434919158) See_Comment [Automated [employer] ssage] The system which generated this result transmitted reference range: 0.0 - 10.0 /100 WBCs. The reference range was not used to interpret this result as normal/abnormal. NRBC x10^3 (test code = 0918283878) <0.01 See_Comment [Automated messa ge] The system which generated this result transmitted reference range: 10*3/?L. The reference range was not used to interpret this result as normal/abnormal. GRAN MAT (NEUT) % (test code = 770-8) 78.1 % IMM GRAN % (test code = 3096783916) 0.30 % LYMPH % (test code = 736-9) 11.8 % MONO % (test code = 5905-5) 7.3 % EOS % (test code = 713-8) 1.9 % BASO % (test code = 706-2) 0.6 % GRAN MAT x10^3(ANC) (test code = 3995146483) 7.32 10*3/uL 1.88-7.09 H IMM GRAN x10^3 (test code = 7519391592) 0.03 10*3/uL 0.00-0.06 LYMPH x10^3 (test code = 731-0) 1.11 10*3/uL 1.32-3.29 L MONO x10^3 (test code = 742-7) 0.69 10*3/uL 0.33-0.92 EOS x10^3 (test code = 711-2) 0.18 10*3/uL 0.03-0.39 BASO x10^3 (test code = 704-7) 0.06 10*3/uL 0.01-0.07 Lab Interpretation (test code = 80357-2) Abnormal [facility]"
--- NOTE | 2024-01-18 13:42 | RAD REPORT ---
EXAM DESCRIPTION: CT - Pelvis Wo Cont - 01/18/2024 1:02 pm CLINICAL HISTORY: fall COMPARISON: Spine Lumbar Wo Con dated 01/18/2024 TECHNIQUE: Thin cut axial CT imaging of the pelvis was performed without IV contrast. Multiplanar re formats were generated and reviewed. All CT scans are performed using dose optimization technique as appropriate and may include automated exposure control or mA/KV adjustment according to patient size. FINDINGS: Mildly comminuted and displaced fractures of the left pubic bone mildly displaced fracture components also extending along the left superior pubic ramus. Non loculated hyperdense blood along the suprapubic space, dissecting along the anterior lower abdomi nal wall bilaterally and along the lower left pelvic sidewall. No dilated bowel loops or bowel wall thickening. No free air, or discrete fluid collection/hematoma. No hernia, mass or bulky lymphadenopathy. The urinary bladder is without significant finding. Lumbosacral degenerative changes are better assessed on the dedicated lumbar spine CT. IMPRESSION: Mildly comminuted and displaced fractures of the left pubic bone and left superior pubic ramus. Non loculated hyperdense blood extending along the lower anterior abdominal wall, suprapubic space, a nd adjacent left pelvic sidewall.
--- NOTE | 2024-01-18 13:51 | RAD REPORT ---
EXAM DESCRIPTION: CT - Spine Lumbar Wo Con - 01/18/2024 1:00 pm CLINICAL HISTORY: fall COMPARISON: Pelvis Wo Cont dated 01/18/2024 TECHNIQUE: Axial noncontrast CT imaging of the lumbar spine was performed with coronal and sagittal re-formatted images. All CT scans are performed using dose optimization technique as appropriate and may include automated exposure control or mA/KV adjustment according to patient size. FINDINGS: No acute lumbar spine fracture seen. No aggressive marrow pattern or subluxation. Paraspinal tissues are normal in thickness. No paraspinal abscess or hematoma seen. Intervertebral disc disease assessment is inherently limited by CT. Within these limitations, multile rossana spondylotic changes are present generally worse on the left, with asymmetric degrees of disc heig ht loss and accompanying endplate osteophytosis on the right at L2-3 and L3-4 and on the left at L4-5 and L5-S1, resulting in mild S shaped scoliotic deformity. At L1-2: Mild right neural foraminal narrowing due to asymmetric disc bulge. At L2-3: Minimal retrolisthesis of L2 over L3 small. Facet arthropathy and endplate spurring contribu te to right lateral recess narrowing. Central canal is otherwise patent. Moderate to severe right and mild left neural foraminal narrowing At L3-4: Endplate and facet arthropathy contribute to lateral recess narrowing more so on the left. C entral canal is otherwise patent. Right severe and left moderate neural foraminal narrowing. At L4-5: Circumferential disc bulge with endplate remodeling worse on the left contribute to left mod erate to severe and right moderate neural foraminal narrowing. Central canal is patent. At L5-S1: Small circumferential disc bulge with superimposed left subarticular/foraminal extrusion an d asymmetric facet arthropathy worse on the left contribute to severe left and moderate right neural foraminal narrowing. Central canal is patent. Dense atherosclerotic calcifications of the aorta. Left renal artery stent in place. Left diaphragmat ic eventration or elevation. IMPRESSION: No acute fracture or subluxation of the lumbar spine. Multilevel spondylotic lumbar spine changes contributing to degrees of left more than right lateral r ecess narrowing at L3-4 and variable degrees of bony neural foraminal narrowing up to severe on the l eft at L5-S1 and on the right at L3-4. No significant bony central canal stenosis. Please consider MRI follow-up for assessment of disc disease and degrees of neural impingement if cli nically desired.
--- NOTE | 2024-01-18 14:09 | ER ---
Nurse's Notes [facility] Name: Terese Hernandez Age: 78 yrs Sex: Female : 1945 Arrival Date: 01/18/2024 Time: 11:59 Bed 17 Private MD: Renaldo Ayala Diagnosis: Pubic Fracture Presentation: 01/17 12:17 Chief complaint: EMS states: left hip pain after a trip and fall this morning. cp4 Coronavirus screen: Client denies travel out of the [place] in the last 14 days. At this time, the client does not indicate any symptoms associated with coronavirus-19. Ebola Screen: Patient negative for fever greater than or equal to 101.5 degrees Fahrenheit, and additional compatible Ebola Virus Disease symptoms Patient denies exposure to infectious person. Patient denies travel to an Ebola-affected area in the 21 days before illness onset. No symptoms or risks identified at this time. No acute neurological deficit is noted. Initial Sepsis Screen: Does the patient meet any 2 criteria? No. Patient's initial sepsis screen is negative. Does the patient have a suspected source of infection? No. Patient's initial sepsis screen is negative. Risk Assessment: Do you want to hurt yourself or someone else? Patient reports no desire to harm self or others. 12:17 Method Of Arrival: EMS: [facility] cp4 12:17 Acuity: MARITA 3 cp4 Triage Assessment: 12:21 General: Appears in no apparent distress. Behavior is calm, cooperative, appropriate cp4 for age. Pain: Complains of pain in left hip. Neuro: No deficits noted. Reports non. Musculoskeletal: Reports pain in left hip/left groin. 18:11 The onset of the patients symptoms was. cp4 Historical: - Allergies: 12:21 Morphine; cp4 - Immunization history:: Adult Immunizations up to date. - Social history:: Smoking status: Patient denies any tobacco usage or history of. Screenin:23 [facility] ED Fall Risk Assessment (Adult) History of falling in the last 3 months, cp4 including since admission Yes- single mechanical fall (1 pt) Confusion or Disorientation No (0 pts) Intoxicated or Sedated No (0 pts) Impaired Gait No (0 pts) Mobility Assist Device Used No (0 pt) Altered Elimination No (0 pt). Abuse screen: Denies threats or abuse. Nutritional screening: No deficits noted. Tuberculosis screening: No symptoms or risk factors identified. Assessment: 12:23 VAN Scoring: Arm Drift: Patients demonstrates NO arm weakness. Patient is VAN Negative. cp4 Visual Disturbance: Field Cut: Abnormal visual walter noted. Provider notified of +VAN scoring. Aphasia: No aphasia noted. Neglect: No neglect noted. Weed Swallow Protocol. Vital Signs: 12:17 BP 151 / 64; Pulse 63; Resp 18; Temp 98; Pulse Ox 97% ; Pain 5/10; cp4 13:00 BP 115 / 61; Pulse 67; Resp 18; Pulse Ox 100% ; cp4 14:00 BP 113 / 74; Pulse 64; Resp 18; Pulse Ox 100% ; cp4 15:06 BP 95 / 44; Pulse 58; Resp 18; Pulse Ox 100% ; cp4 16:00 BP 113 / 49; Pulse 56; Resp 18; Pulse Ox 100% ; cp4 17:00 BP 128 / 50; Pulse 57; Resp 18; Pulse Ox 100% ; cp4 12:17 Pain Scale: Adult cp4 NIH Stroke Scale Scores: 12:23 NIHSS Score: 0 cp4 ED Course: 12:02 Patient arrived in ED. mr 12:02 Renaldo Ayala MD is Private Physician. mr 12:04 Franky Fuller MD is Attending Physician. ec2 12:16 Kelsy Concepcion is Primary Nurse. cp4 12:19 Triage completed. cp4 12:21 Arm band placed on right wrist. Patient placed in an exam room, on a stretcher. cp4 12:23 Patient has correct armband on for positive identification. Bed in low position. Call cp4 light in reach. Side rails up X 1. Provided Education on: falls. 12:23 No provider procedures requiring assistance completed. cp4 13:00 CT Pelvis wo Cont In Process Unspecified. EDMS 13:00 CT Lumbar Spine Wo Con In Process Unspecified. EDMS 13:28 Pelvis XRAY In Process Unspecified. EDMS 13:28 Femur Left XRAY In Process Unspecified. EDMS 13:41 Patient did not have IV access during this emergency room visit. cp4 15:03 CT Abd/Pelvis - IV Contrast Only In Process Unspecified. EDMS Administered Medications: 12:51 Drug: Ketorolac IM 15 mg IM once Route: IM; Site: right deltoid; cp4 13:15 Follow up: Response: No adverse reaction cp4 12:51 Drug: Diazepam PO 5 mg PO once Route: PO; cp4 13:14 Follow up: Response: No adverse reaction cp4 12:52 Drug: Lidoderm Topical Patch 5 % (700 mg/patch) 1 patches Topical once; leave on for 12 cp4 hours; cover most painful area; may cut into smaller pieces Route: Topical; Site: affected area; 13:15 Follow up: Response: No adverse reaction; Pain is decreased cp4 12:52 Drug: Acetaminophen PO 1000 mg PO once Route: PO; cp4 13:15 Follow up: Response: No adverse reaction cp4 17:57 Drug: fentaNYL (PF) IVP 50 mcg IVP once Route: IVP; Site: right antecubital; cp4 17:57 Follow up: Response: No adverse reaction cp4 Medication: 12:23 VIS not applicable for this client. cp4 Outcome: 14:09 ER care complete, transfer ordered by . ec2 18:04 Patient left the ED. bc6 18:10 Transferred to [facility], Transfer form completed. X-rays sent w/ patient. cp4 18:10 Condition: stable 18:10 Instructed on the need for transfer, Demonstrated understanding of instructions, NIH Stroke Scale - NIH Stroke Score Date: 01/18/2024 Time: 12:23 Total Score = 0 10. Dysarthria (speech clarity - read or repeat words) - 0(Normal) 11. Extinction and Inattention (visual/tactile/auditory/spatial/personal) - 0(No abnormality) 1a. Level of Consciousness (LOC) - 0(Alert) 1b. Level of Consciousness (LOC) (Month \T\ Age) - 0(Both) 1c. LOC Commands (Open \T\ Closes Eyes/Regional Director Of Admissions) - 0(Both) 2. Best Gaze (Lateral Gaze Paresis) - 0(Normal) 3. Visual Field Loss - 0(No visual loss) 4. Facial Palsy - 0(Normal) 5a. Left Arm: Motor (10-second hold) - 0(No drift) 5b. Right Arm: Motor (10-second hold) - 0(No drift) 6a. Left Leg: Motor (5-second hold - always test supine) - 0(No drift) 6b. Right Leg: Motor (5-second hold - always test supine) - 0(No drift) 7. Limb Ataxia (finger/nose \T\ heel/catalan - test with eyes open) - 0(Absent) 8. Sensory Loss (pinprick arms/legs/face) - 0(Normal) 9. Best Language: Aphasia (description/naming/reading) - 0(No aphasia) Initials: cp4 Signatures: Dispatcher [employer] EDMS Ai Daniel, Reg Reg mr AntoniadiegocliffordAdelaida bc6 Franky Fuller MD MD ec2 Kelsy Concepcion cp4
--- NOTE | 2024-01-18 14:10 | EDPHYS ---
Physician Documentation [facility] Name: Terese Hernandez Age: 78 yrs Sex: Female : 1945 Arrival Date: 01/18/2024 Time: 11:59 Bed 17 Private MD: Renaldo Ayala ED Physician Franky Fuller HPI: 01/17 12:33 This 78 yrs old Female presents to ER via EMS with complaints of Hip Pain. ec2 12:33 Patient arrives today for evaluation after ground-level fall. Patient complaining of ec2 left hip pain and back pain. States that she tripped over a trash while she was trying to the trash out. No LOC, no blood thinners, no head or neck pain. Patient reports chronic back pain as well.. Historical: - Allergies: 12:21 Morphine; cp4 - Immunization history:: Adult Immunizations up to date. - Social history:: Smoking status: Patient denies any tobacco usage or history of. ROS: 12:33 Constitutional: as per hpi ec2 Exam: 12:33 Constitutional: GEN: No acute distress HEENT: -Head: no deformities -Eyes: EOMI CV: ec2 regular rate LUNGS: no respiratory distress ABD: non-tender SKIN: no wounds appreciated MSK: No C/T/L spine deformities, L-spine TTP RUE w/o bony deformity LUE w/o bony deformity RLE w/o bony deformity LLE w/o bony deformity, left groin with TTP, no deformities, no crepitus appreciated, good range of motion at the hip. Intact distal neurovascular status. NEURO: moves all extremities equally, GCS 15 (E4, V5, M6) Vital Signs: 12:17 BP 151 / 64; Pulse 63; Resp 18; Temp 98; Pulse Ox 97% ; Pain 5/10; cp4 13:00 BP 115 / 61; Pulse 67; Resp 18; Pulse Ox 100% ; cp4 14:00 BP 113 / 74; Pulse 64; Resp 18; Pulse Ox 100% ; cp4 15:06 BP 95 / 44; Pulse 58; Resp 18; Pulse Ox 100% ; cp4 16:00 BP 113 / 49; Pulse 56; Resp 18; Pulse Ox 100% ; cp4 17:00 BP 128 / 50; Pulse 57; Resp 18; Pulse Ox 100% ; cp4 12:17 Pain Scale: Adult cp4 NIH Stroke Scale Scores: 12:23 NIHSS Score: 0 cp4 MDM: 12:33 Data reviewed: vital signs. ED course: Patient arrives today for hip pain and back ec2 pain. Examination remarkable for MSK findings as above. Will obtain imaging of the hip and pelvis as well as L-spine. Will give the patient medications for pain. Otherwise patient without prodromal symptoms to indicate a systemic process, doubt ACS or PE or dissection. Accordingly will defer any lab work or EKG. evaluating for process such as bony fracture, additionally considering muscular injury.. 12:35 Patient medically screened. ec2 14:07 ED course: Pelvic fractures noted on CT scan, hematoma noted, will obtain contrasted ec2 study.. 14:10 ED course: CT pelvis showed comminuted displaced fracture of the left pubic bone and ec2 superior pubic rami with associated sounds like hematoma along the lower pelvis. Will obtain contrasted study.. 14:48 ED course: Metabolic profile shows hyponatremia to sodium of 125, coagulation profile ec2 unremarkable. No evidence of anemia on CBC.. 15:39 ED course: CT abdomen pelvis shows stable nonloculated blood products in the lower ec2 anterior abdominal wall. Will proceed with transfer for trauma capable facility. . 15:57 ED course: I discussed the case with trauma surgery at [facility] who agrees ec2 accept this patient for ER to ER transfer. Patient updated on the plan of care.. 01/17 13:45 Order name: CBC with Diff; Complete Time: 17:48 ec2 01/17 13:45 Order name: CMP; Complete Time: 14:48 ec2 01/17 13:45 Order name: PT-INR; Complete Time: 14:48 ec2 01/17 13:45 Order name: Ptt, Activated; Complete Time: 14:48 ec2 01/17 16:32 Order name: CBC Smear Scan; Complete Time: 17:48 EDMS 01/17 12:33 Order name: Pelvis XRAY; Complete Time: 14:34 ec2 01/17 12:33 Order name: Femur Left XRAY; Complete Time: 14:34 ec2 01/17 12:33 Order name: CT Pelvis wo Cont; Complete Time: 13:45 ec2 01/17 12:33 Order name: CT Lumbar Spine Wo Con; Complete Time: 14:09 ec2 01/17 13:49 Order name: CT Abd/Pelvis - IV Contrast Only; Complete Time: 15:39 ec2 Administered Medications: 12:51 Drug: Ketorolac IM 15 mg IM once Route: IM; Site: right deltoid; cp4 13:15 Follow up: Response: No adverse reaction cp4 12:51 Drug: Diazepam PO 5 mg PO once Route: PO; cp4 13:14 Follow up: Response: No adverse reaction cp4 12:52 Drug: Lidoderm Topical Patch 5 % (700 mg/patch) 1 patches Topical once; leave on for 12 cp4 hours; cover most painful area; may cut into smaller pieces Route: Topical; Site: affected area; 13:15 Follow up: Response: No adverse reaction; Pain is decreased cp4 12:52 Drug: Acetaminophen PO 1000 mg PO once Route: PO; cp4 13:15 Follow up: Response: No adverse reaction cp4 17:57 Drug: fentaNYL (PF) IVP 50 mcg IVP once Route: IVP; Site: right antecubital; cp4 17:57 Follow up: Response: No adverse reaction cp4 Disposition Summary: 01/18/24 14:09 Transfer Ordered Notes: Reason: Higher level of care ec2 Condition: Stable ec2 Problem: new ec2 Symptoms: have improved ec2 Transfer Location: [facility](01/18/24 15:58) ec2 Accepting Physician: trauma surgeon(01/18/24 18:04) bc6 Diagnosis - Pubic Fracture ec2 Forms: - Medication Reconciliation Form ec2 - SBAR form ec2 NIH Stroke Scale - NIH Stroke Score Date: 01/18/2024 Time: 12:23 Total Score = 0 10. Dysarthria (speech clarity - read or repeat words) - 0(Normal) 11. Extinction and Inattention (visual/tactile/auditory/spatial/personal) - 0(No abnormality) 1a. Level of Consciousness (LOC) - 0(Alert) 1b. Level of Consciousness (LOC) (Month \T\ Age) - 0(Both) 1c. LOC Commands (Open \T\ Closes Eyes/[employer] Operator) - 0(Both) 2. Best Gaze (Lateral Gaze Paresis) - 0(Normal) 3. Visual Field Loss - 0(No visual loss) 4. Facial Palsy - 0(Normal) 5a. Left Arm: Motor (10-second hold) - 0(No drift) 5b. Right Arm: Motor (10-second hold) - 0(No drift) 6a. Left Leg: Motor (5-second hold - always test supine) - 0(No drift) 6b. Right Leg: Motor (5-second hold - always test supine) - 0(No drift) 7. Limb Ataxia (finger/nose \T\ heel/catalan - test with eyes open) - 0(Absent) 8. Sensory Loss (pinprick arms/legs/face) - 0(Normal) 9. Best Language: Aphasia (description/naming/reading) - 0(No aphasia) Initials: cp4 Signatures: Dispatcher [employer] EDMS Andrea Mercado, MUSIC THEORY PROFESSOR-C MUSIC THEORY PROFESSOR-Cla1 Adelaida Sommers bc6 Franky Fuller MD MD ec2 Kelsy Concepcion cp4 Corrections: (The following items were deleted from the chart) 12:34 12:33 ED course: Patient arrives today for hip pain and back pain. Examination ec2 remarkable for MSK findings as above. Will obtain imaging of the hip and pelvis as well as L-spine. Will give the patient medications for pain. Otherwise patient without prodromal symptoms to indicate a systemic process, doubt ACS or PE or dissection. Accordingly will defer any lab work or EKG.. ec2 15:58 14:09 trauma surgeon 2 2 15:58 14:09 Other Acute Care Facility 2 2 18:04 15:58 trauma surgeon 2 bc6
[2024-01-18 14:27] LABS: Absolute Basophils 0.1 K/uL (0-0.5); Absolute Lymphocytes (CBC) 0.8 K/uL (0.7-4.9); Absolute Monocytes 0.7 K/uL (0.1-1.3); Absolute Neutrophil 13.2 K/uL (1.8-8.0); Basophils % 0.4 % (0-1.3); Eosinophils % 0.3 % (0-4.4); Hematocrit 38.1 % (36.0-45.0); Hemoglobin 13.6 g/dL (12.0-15.0); Lymphocytes % 5.5 % (15.3-44.8); MCH 32.7 pg (27.0-35.0); MCHC 35.7 g/dL (32.0-36.0); MCV 91.8 fL (80-100); MPV 6.7 fL (7.6-11.3); Monocytes % 5.1 % (3.3-12.3); Neutrophils % 88.7 % (41.7-73.7); Platelets 397 thou/uL (152-406); RBC Red Blood Cell Count 4.15 M/uL (3.86-4.86)
--- NOTE | 2024-01-18 14:32 | RAD REPORT ---
EXAM DESCRIPTION: RAD - Femur Left - 01/18/2024 1:26 pm CLINICAL HISTORY: fall COMPARISON: No comparisons TECHNIQUE: Left femur, 2 views. FINDINGS: No fracture is identified. Mild left hip joint degenerative changes. There is no dislocati on or periosteal reaction noted. No acute or suspicious bony finding. Vascular calcifications. IMPRESSION: No acute osseous abnormality. Findings as above.
--- NOTE | 2024-01-18 14:32 | RAD REPORT ---
EXAM DESCRIPTION: RAD - Pelvis - 01/18/2024 1:26 pm CLINICAL HISTORY: fall COMPARISON: Pelvis Wo Cont dated 01/18/2024 TECHNIQUE: Single AP view of the pelvis. FINDINGS: Fractures of the left pubic bone and superior pubic symphysis, better evaluated on CT pelv is of the same day. No other suspicious osseous lesions. Mild bilateral hip joint degenerative change s. Degenerative changes of the sacroiliac joints as well. Other pelvic joints are unremarkable. Visua lized aspects of the abdomen and soft tissues are unremarkable. IMPRESSION: Fractures of the left pubic bone and superior pubic ramus, better evaluated on CT pelvis of the same date.
[2024-01-18 14:47] LABS: Albumin 3.7 g/dL (3.4-5.0); Albumin/Globulin Ratio 1.1 (1.1-1.8); Bilirubin Total 0.5 mg/dL (0.2-1.0); Globulin 3.5 g/dL (2.3-3.5); PT Prothrombin Time 10.6 SECONDS (9.5-12.5); PTT, Activated Partial Thromb 31.4 SECONDS (24.3-36.9); Protein, Total 7.2 g/dL (6.4-8.2); Protime INR 0.96
--- NOTE | 2024-01-18 15:38 | RAD REPORT ---
EXAM DESCRIPTION: CT - Abdomen Pelvis W Contrast - 01/18/2024 3:01 pm CLINICAL HISTORY: trauma, fall, hematoma COMPARISON: Pelvis Wo Cont dated 01/18/2024 TECHNIQUE: Thin cut axial CT imaging of the abdomen and pelvis was performed following intravenous a dministration of 100 mL Isovue 300. Multiplanar reformats were generated and reviewed. All CT scans are performed using dose optimization technique as appropriate and may include automated exposure control or mA/KV adjustment according to patient size. FINDINGS: Bolus changes in the left lower lobe. The liver, spleen, adrenal glands, and pancreas show no suspicious findings. Gallbladder and biliary tree are also without suspicious finding. Symmetric renal function is seen with no hydronephrosis or suspicious renal mass. Moderate rugal fold thickening and mild hyperenhancement throughout the fundus and body, may suggest gastritis. No dilated bowel loops or bowel wall thickening. No free air, free fluid or inflammatory s tranding. No hernia, mass or bulky lymphadenopathy. The urinary bladder is without significant findin g. Stable alignment of mildly comminuted and displaced fractures of the left pubic bone and left superio r pubic ramus. Stable extent of non loculated hyperdense blood products along the lower anterior abdominal wall exte nding along the prevesical/suprapubic space, and left pelvic sidewall. No contrast blush to suggest a ctive extravasation. IMPRESSION: Stable alignment of left pubic bone and left superior pubic ramus fractures. Stable extent of non loculated hyperdense blood products along the lower anterior abdominal wall exte nding along the prevesical/ suprapubic space and left pelvic sidewall. No contrast blush to suggest a ctive extravasation. Findings suggesting gastritis.
[2024-01-18 16:32] LABS: Blood Morphology Comment NOT SEEN (NOT SEEN); Platelet Estimate ADEQ; White Blood Cell Scan OK (OK)
[2024-01-18 18:45] VITALS: TEMP 98
[2024-01-18 19:20] VITALS: BP 128/50; O2SAT 100
== END ==
LOC: ER 11:59
DX: S32.512A Fracture of superior rim of left pubis, initial encounter for closed fracture (principal); W18.09XA Striking against other object with subsequent fall, initial encounter; Z88.5 Allergy status to narcotic agent
CPT/HCPCS: 85025; 36415; 85610; 85730; 80053; 72131; 72192; 74177; 72170; 73552; 96372; 96374; 99285; Q9967; J2001; J3010

== ENCOUNTER 2024-01-21 18:01 | Inpatient (IN) | payer OTHER, BC ==
--- OUTSIDE RECORDS SUMMARY | 2024-01-21 18:06 | XMS REPORT | Continuity of Care Document ---
Author Name Unknown Address [address] [facility] [place] [address] [facility] thconnect Address [address] [facility] [address] [place] [address] Care Team Providers Care Leaf Stripper Name Role Phone Moonlisenavinwendy Alysha Primary Care Physician [phone] Cassidy Greenwood Attending Clinician Unavailable SEAN MCKEON Attending Clinician Sean Cantu MD Attending Clinician [phone] Doctor Unassigned, [place] Attending Clinician [facility] Main Attending Clinician UnavailLEIA Quijano Attending Clinician Unavailable Leia Heredia DO Attending Clinician [phone] SEAN MCKEON Admitting Clinician Sean Cantu MD Admitting Clinician [phone] LEIA HEREDIA Admitting Clinician Unavailable Payers Payer Name Policy Type Policy Number Effective Date Expiration Date Source MEDICARE PART A \\T\\ B [id number] 2008 00:00:00 [employer] TRADITIONAL [id number] 2017 00:00:00 [facility] HMO C1 [id number] [facility] MEDICARE NOV[place] MB [id number] [facility] MEDICARE [facility]OV[place] MB [id number] [facility] [id number] [facility] [id number] C [facility] Problems Condition Name Condition Details Condition Category Status Onset Date Resolution Date Last Treatment Date Treating Clinician Comments Source No known active problems No known active problems Disease [facility] [id number] Pulmonary emphysema, unspecifie d emphysema type Problem Active [facility] Acid reflux Acid reflux Problem Active [facility] Allergic rhinitis Allergic rhinitis Problem Active [facility] Essential hypertensi on Essential hypertensi on Problem Active [facility] Depression Depression Problem Active [facility] Hypothyroi dism Hypothyroi dism Problem Active [facility] Asthma Asthma Problem Active [facility] Anxiety Anxiety Problem Active [facility] Allergies, Adverse Reactions, Alerts Allergy Name Allergy Type Status Severity Reaction(s) Onset Date Inactive Date Treating Clinician Comments Source MORPHINE DRUG INGREDI Active Hives 11-24 00:00: 00 [facility] Morphine Propensi ty to adverse reaction s Active Hives 11-24 00:00: 00 [facility] morphine morphine Active Unknown [facility] Social History Social Habit Start Date Stop Date Quantity Comments Source History of Tobacco Use Current Smoker [facility] Sex Assigned At [facility] Exposure to SARS-CoV-2 (event) 2022-09-02 00:00:00 2022-09-12 10:13:00 Not sure [facility] Tobacco use and exposure 2022-08-20 00:00:00 2022-08-20 00:00:00 Smokeless tobacco non-user [facility] Smoking Status Start Date Stop Date Source Tobacco smoking consumption unknown [facility] Never smoked tobacco [facility] Current Smoker 2021-06-05 00:00:00 [facility] Medications Ordered Medication Name Filled Medication Name Start Date Stop Date Current Medication? Ordering Clinician Indication Dosage Frequency Signature (SIG) Comments Components Source water for irrigation irrigation solution 2021-11 17:44: 00 09-17 18:24 :22 No PRN, Starting on Thu09/17/22 at 1144, Until Thu09/17/22 at 1224, Routine, Intra-op [facility] sodium chloride (NS) injection 2021-11 17:43: 00 09-17 18:24 :22 No PRN, Starting on Thu09/17/22 at 1143, Until Thu09/17/22 at 1224, Routine, Intra-op [facility] neomycin-po lymyxin-dex amethasone (MAXITROL) 3.5 mg/g-10,000 unit/g-0.1 % ophthalmic ointment 2021-11 17:43: 00 09-17 18:24 :22 No PRN, Starting on Thu09/17/22 at 1143, Until Thu09/17/22 at 1224, Routine, Intra-op [facility] Hyaluronida se, Human Recomb. (HYLENEX) injection 2021-11 17:43: 00 09-17 18:24 :22 No PRN, Starting on Thu09/17/22 at 1143, Until Thu09/17/22 at 1224, Routine, Intra-op [facility] eye block syringe 11 mL 2021-11 17:42: 00 09-17 18:24 :22 No PRN, Starting on Thu09/17/22 at 1142, Until Thu09/17/22 at 1224, Intra-op [facility] EPINEPHrine 1:1,000 (1 mg/mL) (ADRENALIN) injection 2021-11 17:40: 00 09-17 18:24 :22 No PRN, Starting on Thu09/17/22 at 1140, Until Thu09/17/22 at 1224, Routine, Intra-op [facility] chondroitin sulf-sod hyaluronate (DUOVISC VISCO ELASTIC) intraocular injection 2021-11 17:40: 00 09-17 18:24 :22 No PRN, Starting on Thu09/17/22 at 1140, Until Thu09/17/22 at 1224, Routine, Intra-op [facility] dexamethaso ne (DECADRON PHOSPHATE) injection 2021-11 17:40: 00 09-17 18:24 :22 No PRN, Starting on Thu09/17/22 at 1140, Until Thu09/17/22 at 1224, Routine, Intra-op [facility] ceFAZolin (ANCEF) injection 2021-11 17:39: 00 09-17 18:24 :22 No PRN, Starting on Thu09/17/22 at 1139, Until Thu09/17/22 at 1224, SANJANA, Intra-op [facility] carbachoL (MIOSTAT) 0.01 % intraocular injection 2021-11 17:38: 00 09-17 18:24 :22 No PRN, Starting on Thu09/17/22 at 1138, Until Thu09/17/22 at 1224, Routine, Intra-op [facility] balanced salt irrig soln comb1 (BSS PLUS) ophthalmic solution 500 mL bag 2021-11 17:37: 00 09-17 18:24 :22 No PRN, Starting on Thu09/17/22 at 1137, Until Thu09/17/22 at 1224, Routine, Intra-op [facility] cyclopent 1%-tropic 1%-phenyl 2.5%-ketor 0.5% (MYDRIATIC #5) ophthalmic solution syringe 0.5 mL 2021-11 16:45: 00 09-17 16:58 :00 No .5mL 0.5 mL, Left Eye, ONCE, 1 dose, On Thu09/17/22 at 1045, Routine, DSU Pre-op [facility] lactated ringers IV infusion 1,000 mL 2021-11 16:45: 00 09-17 16:58 :00 No 1000mL at 42 mL/hr, 1,000 mL, IV Infusion, ONCE, 1 dose, On Thu09/17/22 at 1045, Routine, DSU Pre-op [facility] cyclopent 1%-tropic 1%-phenyl 2.5%-ketor 0.5% (MYDRIATIC #5) ophthalmic solution syringe 0.5 mL 2021-11 16:45: 00 09-17 16:58 :00 No .5mL 0.5 mL, Left Eye, ONCE, 1 dose, On Thu09/17/22 at 1045, Routine, DSU Pre-op [facility] lactated ringers IV infusion 1,000 mL 2021-11 16:45: 00 09-17 16:58 :00 No 1000mL at 42 mL/hr, 1,000 mL, IV Infusion, ONCE, 1 dose, On Thu09/17/22 at 1045, Routine, DSU Pre-op [facility] pantoprazol e 40 mg EC tablet 2021-11 13:15: 30 Yes 40mg Take 40 mg by mouth in the morning. [facility] diphenhydrA MINE 25 mg capsule 2021-11 13:15: 30 Yes 25mg Take 25 mg by mouth every 6 (six) hours as needed for Allergies. [facility] pantoprazol e 40 mg EC tablet 2021-11 13:15: 30 Yes 40mg Take 40 mg by mouth in the morning. [facility] diphenhydrA MINE 25 mg capsule 2021-11 13:15: 30 Yes 25mg Take 25 mg by mouth every 6 (six) hours as needed for Allergies. [facility] pantoprazol e 40 mg EC tablet 2021-11 10:10: 51 Yes 40mg Take 40 mg by mouth in the morning. [facility] diphenhydrA MINE 25 mg capsule 2021-11 10:10: 51 Yes 25mg Take 25 mg by mouth every 6 (six) hours as needed for Allergies. [facility] sodium chloride (NS) injection 2021-11 0 17:39: 00 08-27 17:43 :26 No PRN, Starting on Thu08/27/22 at 1239, Until Thu08/27/22 at 1243, Routine, Intra-op [facility] neomycin-po lymyxin-dex amethasone (MAXITROL) 3.5 mg/g-10,000 unit/g-0.1 % ophthalmic ointment 2021-11 17:39: 00 08-27 17:43 :26 No PRN, Starting on Thu08/27/22 at 1239, Until Thu08/27/22 at 1243, Routine, Intra-op [facility] dexamethaso ne (DECADRON PHOSPHATE) injection 2021-11 17:39: 00 08-27 17:43 :26 No PRN, Starting on Thu08/27/22 at 1239, Until Thu08/27/22 at 1243, Routine, Intra-op [facility] ceFAZolin (ANCEF) injection 2021-11 17:39: 00 08-27 17:43 :26 No PRN, Starting on Thu08/27/22 at 1239, Until Thu08/27/22 at 1243, SANJANA, Intra-op [facility] carbachoL (MIOSTAT) 0.01 % intraocular injection 2021-11 17:38: 00 08-27 17:43 :26 No PRN, Starting on Thu08/27/22 at 1238, Until Thu08/27/22 at 1243, Routine, Intra-op [facility] chondroitin sulf-sod hyaluronate (DUOVISC VISCO ELASTIC) intraocular injection 2021-11 17:29: 00 08-27 17:43 :26 No PRN, Starting on Thu08/27/22 at 1229, Until Thu08/27/22 at 124, Routine, Intra-op [facility] EPINEPHrine 1:1,000 (1 mg/mL) (ADRENALIN) injection 2021-11 17:28: 00 08-27 17:43 :26 No PRN, Starting on Thu08/27/22 at 1228, Until Thu08/27/22 at 1243, Routine, Intra-op [facility] balanced salt irrig soln comb1 (BSS PLUS) ophthalmic solution 500 mL bag 2021-11 17:28: 00 08-27 17:43 :26 No PRN, Starting on Thu08/27/22 at 1228, Until Thu08/27/22 at 1243, Routine, Intra-op [facility] water for irrigation irrigation solution 2021-11 17:22: 00 08-27 17:43 :26 No PRN, Starting on Thu08/27/22 at 1222, Until Thu08/27/22 at 1243, Routine, Intra-op [facility] Hyaluronida se, Human Recomb. (HYLENEX) injection 2021-11 17:18: 00 08-27 17:43 :26 No PRN, Starting on Thu08/27/22 at 1218, Until Thu08/27/22 at 1243, Routine, Intra-op [facility] eye block syringe 11 mL 2021-11 17:18: 00 08-27 17:43 :26 No PRN, Starting on Thu08/27/22 at 1218, Until Thu08/27/22 at 1243, Intra-op [facility] cyclopent 1%-tropic 1%-phenyl 2.5%-ketor 0.5% (MYDRIATIC #5) ophthalmic solution syringe 0.5 mL 2021-11 15:45: 00 08-27 15:50 :00 No .5mL 0.5 mL, Right Eye, ONCE, 1 dose, On Thu08/27/22 at 1045, Routine, DSU Pre-op [facility] lactated ringers IV infusion 1,000 mL 2021-11 15:45: 00 08-27 15:50 :00 No 1000mL at 42 mL/hr, 1,000 mL, IV Infusion, ONCE, 1 dose, On Thu08/27/22 at 1045, Routine, DSU Pre-op [facility] cyclopent 1%-tropic 1%-phenyl 2.5%-ketor 0.5% (MYDRIATIC #5) ophthalmic solution syringe 0.5 mL 2021-11 15:45: 00 08-27 15:50 :00 No .5mL 0.5 mL, Right Eye, ONCE, 1 dose, On Thu08/27/22 at 1045, Routine, DSU Pre-op [facility] lactated ringers IV infusion 1,000 mL 2021-11 15:45: 00 08-27 15:50 :00 No 1000mL at 42 mL/hr, 1,000 mL, IV Infusion, ONCE, 1 dose, On Thu08/27/22 at 1045, Routine, DSU Pre-op [facility] pantoprazol e 40 mg EC tablet 2021-11 13:28: 43 Yes 40mg Take 40 mg by mouth in the morning. [facility] pantoprazol e 40 mg EC tablet 2021-11 13:28: 43 Yes 40mg Take 40 mg by mouth in the morning. [facility] pantoprazol e 40 mg EC tablet 2021-11 13:28: 43 Yes 40mg Take 40 mg by mouth in the morning. [facility] benzonatate 200 mg capsule 2021-11 00:00: 00 Yes 200mg Take 200 mg by mouth as needed. [facility] benzonatate 200 mg capsule 2021-11 00:00: 00 Yes 200mg Take 200 mg by mouth as needed. [facility] benzonatate 200 mg capsule 2021-11 00:00: 00 Yes 200mg Take 200 mg by mouth as needed. [facility] benzonatate 200 mg capsule 2021-11 00:00: 00 Yes 200mg Take 200 mg by mouth as needed. [facility] benzonatate 200 mg capsule 2021-11 00:00: 00 Yes 200mg Take 200 mg by mouth as needed. [facility] benzonatate 200 mg capsule 2021-11 00:00: 00 Yes 200mg Take 200 mg by mouth as needed. [facility] triamterene -hydrochlor othiazide 37.5-25 mg per capsule 2021-11 0-09 00:00: 00 Yes 1{capsu le} Take 1 capsule by mouth in the morning. [facility] triamterene -hydrochlor othiazide 37.5-25 mg per capsule 2021-11 0-09 00:00: 00 Yes 1{capsu le} Take 1 capsule by mouth in the morning. [facility] triamterene -hydrochlor othiazide 37.5-25 mg per capsule 2021-11 0-09 00:00: 00 Yes 1{capsu le} Take 1 capsule by mouth in the morning. [facility] triamterene -hydrochlor othiazide 37.5-25 mg per capsule 2021-11 0- 00:00: 00 Yes 1{capsu le} Take 1 capsule by mouth in the morning. [facility] triamterene -hydrochlor othiazide 37.5-25 mg per capsule 2021-11 0- 00:00: 00 Yes 1{capsu le} Take 1 capsule by mouth in the morning. [facility] triamterene -hydrochlor othiazide 37.5-25 mg per capsule 2021-11 0- 00:00: 00 Yes 1{capsu le} Take 1 capsule by mouth in the morning. [facility] metoprolol succinate XL 50 mg 24 hr tablet 07-28 00:00: 00 Yes 50mg Take 50 mg by mouth in the morning. [facility] albuterol 90 mcg/actuati on inhaler 07-28 00:00: 00 Yes 2{puff} Inhale 2 Puffs as needed. [facility] metoprolol succinate XL 50 mg 24 hr tablet 07-28 00:00: 00 Yes 50mg Take 50 mg by mouth in the morning. [facility] albuterol 90 mcg/actuati on inhaler 07-28 00:00: 00 Yes 2{puff} Inhale 2 Puffs as needed. [facility] metoprolol succinate XL 50 mg 24 hr tablet 07-28 00:00: 00 Yes 50mg Take 50 mg by mouth in the morning. [facility] albuterol 90 mcg/actuati on inhaler 07-28 00:00: 00 Yes 2{puff} Inhale 2 Puffs as needed. [facility] metoprolol succinate XL 50 mg 24 hr tablet 07-28 00:00: 00 Yes 50mg Take 50 mg by mouth in the morning. [facility] albuterol 90 mcg/actuati on inhaler 07-28 00:00: 00 Yes 2{puff} Inhale 2 Puffs as needed. [facility] metoprolol succinate XL 50 mg 24 hr tablet 07-28 00:00: 00 Yes 50mg Take 50 mg by mouth in the morning. [facility] albuterol 90 mcg/actuati on inhaler 07-28 00:00: 00 Yes 2{puff} Inhale 2 Puffs as needed. [facility] metoprolol succinate XL 50 mg 24 hr tablet 07-28 00:00: 00 Yes 50mg Take 50 mg by mouth in the morning. [facility] albuterol 90 mcg/actuati on inhaler 07-28 00:00: 00 Yes 2{puff} Inhale 2 Puffs as needed. [facility] cetirizine 10 mg tablet 07-28 00:00: 00 08-20 00:00 :00 No 10mg Take 10 mg by mouth in the morning. [facility] cetirizine 10 mg tablet 07-28 00:00: 00 08-20 00:00 :00 No 10mg Take 10 mg by mouth in the morning. [facility] FLUoxetine 20 mg capsule 07-14 00:00: 00 Yes 20mg Take 20 mg by mouth in the morning. [facility] buPROPion XL 300 mg 24 hr tablet 07-14 00:00: 00 Yes 300mg Take 300 mg by mouth every morning. [facility] FLUoxetine 20 mg capsule 07-14 00:00: 00 Yes 20mg Take 20 mg by mouth in the morning. [facility] buPROPion XL 300 mg 24 hr tablet 2021-0 07-14 00:00: 00 Yes 300mg Take 300 mg by mouth every morning. [facility] FLUoxetine 20 mg capsule 2021-0 07-14 00:00: 00 Yes 20mg Take 20 mg by mouth in the morning. [facility] buPROPion XL 300 mg 24 hr tablet 2021-0 07-14 00:00: 00 Yes 300mg Take 300 mg by mouth every morning. [facility] FLUoxetine 20 mg capsule 2021-0 07-14 00:00: 00 Yes 20mg Take 20 mg by mouth in the morning. [facility] buPROPion XL 300 mg 24 hr tablet 2021-0 07-14 00:00: 00 Yes 300mg Take 300 mg by mouth every morning. [facility] FLUoxetine 20 mg capsule 2021-0 07-14 00:00: 00 Yes 20mg Take 20 mg by mouth in the morning. [facility] buPROPion XL 300 mg 24 hr tablet 2021-0 07-14 00:00: 00 Yes 300mg Take 300 mg by mouth every morning. [facility] FLUoxetine 20 mg capsule 2021-0 07-14 00:00: 00 Yes 20mg Take 20 mg by mouth in the morning. [facility] buPROPion XL 300 mg 24 hr tablet 2021-0 07-14 00:00: 00 Yes 300mg Take 300 mg by mouth every morning. [facility] montelukast 10 mg tablet 2021-0 07-08 00:00: 00 Yes 10mg Take 10 mg by mouth in the morning. [facility] montelukast 10 mg tablet 2021-0 07-08 00:00: 00 Yes 10mg Take 10 mg by mouth in the morning. [facility] montelukast 10 mg tablet 2021-0 07-08 00:00: 00 Yes 10mg Take 10 mg by mouth in the morning. [facility] montelukast 10 mg tablet 2021-0 07-08 00:00: 00 Yes 10mg Take 10 mg by mouth in the morning. [facility] montelukast 10 mg tablet 07-08 00:00: 00 Yes 10mg Take 10 mg by mouth in the morning. [facility] montelukast 10 mg tablet 07-08 00:00: 00 Yes 10mg Take 10 mg by mouth in the morning. [facility] EUTHYROX 75 mcg tablet 07-03 00:00: 00 Yes 75ug Take 75 mcg by mouth every morning. [facility] EUTHYROX 75 mcg tablet 07-03 00:00: 00 Yes 75ug Take 75 mcg by mouth every morning. [facility] EUTHYROX 75 mcg tablet 0 07-03 00:00: 00 Yes 75ug Take 75 mcg by mouth every morning. [facility] EUTHYROX 75 mcg tablet 07-03 00:00: 00 Yes 75ug Take 75 mcg by mouth every morning. [facility] EUTHYROX 75 mcg tablet 07-03 00:00: 00 Yes 75ug Take 75 mcg by mouth every morning. [facility] EUTHYROX 75 mcg tablet 0 07-03 00:00: 00 Yes 75ug Take 75 mcg by mouth every morning. [facility] TRELEGY ELLIPTA 100-62.5-25 mcg DsDv 2021-0 07-02 00:00: 00 Yes 1{puff} Take 1 Puff by mouth daily. [facility] TRELEGY ELLIPTA 100-62.5-25 mcg DsDv 2-0 07-02 00:00: 00 Yes 1{puff} Take 1 Puff by mouth daily. [facility] TRELEGY ELLIPTA 100-62.5-25 mcg DsDv 2-0 07-02 00:00: 00 Yes 1{puff} Take 1 Puff by mouth daily. [facility] TRELEGY ELLIPTA 100-62.5-25 mcg DsDv 2-0 07-02 00:00: 00 Yes 1{puff} Take 1 Puff by mouth daily. [facility] TRELEGY ELLIPTA 100-62.5-25 mcg DsDv 07-02 00:00: 00 Yes 1{puff} Take 1 Puff by mouth daily. [facility] TRELEGY ELLIPTA 100-62.5-25 mcg DsDv 07-02 00:00: 00 Yes 1{puff} Take 1 Puff by mouth daily. [facility] gabapentin 600 mg tablet 06-13 00:00: 00 Yes 600mg Take 600 mg by mouth in the morning. [facility] cetirizine HCl (CETIRIZINE ORAL) 06-13 00:00: 00 Yes 10mg Take 10 mg by mouth daily. [facility] gabapentin 600 mg tablet 06-13 00:00: 00 Yes 600mg Take 600 mg by mouth in the morning. [facility] cetirizine HCl (CETIRIZINE ORAL) 06-13 00:00: 00 Yes 10mg Take 10 mg by mouth daily. [facility] gabapentin 600 mg tablet 06-13 00:00: 00 Yes 600mg Take 600 mg by mouth in the morning. [facility] cetirizine HCl (CETIRIZINE ORAL) 06-13 00:00: 00 Yes 10mg Take 10 mg by mouth daily. [facility] gabapentin 600 mg tablet 06-13 00:00: 00 Yes 600mg Take 600 mg by mouth in the morning. [facility] cetirizine HCl (CETIRIZINE ORAL) 06-13 00:00: 00 Yes 10mg Take 10 mg by mouth daily. [facility] gabapentin 600 mg tablet 06-13 00:00: 00 Yes 600mg Take 600 mg by mouth in the morning. [facility] cetirizine HCl (CETIRIZINE ORAL) 06-13 00:00: 00 Yes 10mg Take 10 mg by mouth daily. [facility] gabapentin 600 mg tablet 06-13 00:00: 00 Yes 600mg Take 600 mg by mouth in the morning. [facility] cetirizine HCl (CETIRIZINE ORAL) 812 00:00: 00 Yes 10mg Take 10 mg by mouth daily. [facility] NaCl 0.9% (NS) bolus infusion 1,000 mL 11-25 01:30: 00 11-25 03:09 :00 No 1000mL at 999 mL/hr, 1,000 mL, IV Infusion, ONCE, 1 dose, On 11/24/21 at 1930, STAT [facility] No known medications 11-24 21:42: 38 No [facility] No known medications 11-24 21:42: 38 No No known medication s [facility] No known medications 11-24 21:42: 38 No No known medication s [facility] predniSONE 20 MG predniSONE 20 MG 04-24 [...] Systolic blood pressure 2022-09-17 18:40:00 121 mm[Hg] [facility] Diastolic blood pressure 2022-09-17 18:40:00 54 mm[Hg] [facility] Heart rate 2022-09-17 18:40:00 53 /min [facility] Respiratory rate 2022-09-17 18:40:00 15 /min [facility] Oxygen saturation in Arterial blood by Pulse oximetry 2022-09-17 18:40:00 98 /min [facility] Body temperature 2022-09-17 18:26:00 36.56 [facility] Body height 2022-09-17 16:48:00 161.3 cm [facility] Body weight 2022-09-17 16:48:00 54.432 kg [facility] BMI 2022-09-17 16:48:00 20.92 kg/m2 [facility] Systolic blood pressure 2022-09-17 16:48:00 147 mm[Hg] [facility] Diastolic blood pressure 2022-09-17 16:48:00 43 mm[Hg] [facility] Heart rate 2022-09-17 16:48:00 44 /min [facility] Body temperature 2022-09-17 16:48:00 36.22 Ene[facility] Respiratory rate 2022-09-17 16:48:00 12 /min [facility] Body height 2022-09-17 16:48:00 161.3 cm [facility] Body weight 2022-09-17 16:48:00 54.432 kg [facility] BMI 2022-09-17 16:48:00 20.92 kg/m2 [facility] Oxygen saturation in Arterial blood by Pulse oximetry 2022-09-17 16:48:00 98 /min [facility] Heart rate 2022-08-27 18:00:00 56 /min [facility] Respiratory rate 2022-08-27 18:00:00 51 /min [facility] Systolic blood pressure 2022-08-27 17:59:00 153 mm[Hg] [facility] Diastolic blood pressure 2022-08-27 17:59:00 54 mm[Hg] [facility] Body temperature 2022-08-27 17:59:00 36.11 Eneida [facility] Oxygen saturation in Arterial blood by Pulse oximetry 2022-08-27 17:57:00 95 /min [facility] Body weight 2022-08-20 16:00:00 54.432 kg [facility] BMI 2022-08-20 16:00:00 21.26 kg/m2 [facility] Systolic blood pressure 2022-08-27 15:47:00 161 mm[Hg] [facility] Diastolic blood pressure 2022-08-27 15:47:00 58 mm[Hg] [facility] Heart rate 2022-08-27 15:47:00 48 /min [facility] Body temperature 2022-08-27 15:47:00 36.11 Eneida [facility] Respiratory rate 2022-08-27 15:47:00 16 /min [facility] Oxygen saturation in Arterial blood by Pulse oximetry 2022-08-27 15:47:00 97 /min [facility] Body weight 2022-08-20 16:00:00 54.432 kg [facility] BMI 2022-08-20 16:00:00 21.26 kg/m2 [facility] Heart rate 2021-11-25 03:10:00 52 /min [facility] Respiratory rate 2021-11-25 03:10:00 15 /min [facility] Oxygen saturation in Arterial blood by Pulse oximetry 2021-11-25 03:10:00 94 /min [facility] Systolic blood pressure 2021-11-25 03:00:00 114 mm[Hg] [facility] Diastolic blood pressure 2021-11-25 03:00:00 62 mm[Hg] [facility] Body temperature 2021-11-25 01:10:00 37.5 Eneida [facility] Body height 2021-11-25 01:10:00 160 cm [facility] Body weight 2021-11-25 01:10:00 55.339 kg [facility] BMI 2021-11-25 01:10:00 21.61 kg/m2 [facility] height 2021-06-05 10:00:00 62 [in_i] [facility] weight 2021-06-05 10:00:00 126.6 [lb_av] [facility] temperature 2021-06-05 10:00:00 98.2 [degF] [facility] bmi 2021-06-05 10:00:00 23.15 kg/m2 [facility] oximetry 2021-06-05 10:00:00 96 % [facility] respiratory rate 2021-06-05 10:00:00 18 /min [facility] blood pressure systolic 2021-06-05 10:00:00 124 mm[Hg] [facility] blood pressure diastolic 2021-06-05 10:00:00 55 mm[Hg] [facility] blood pressure diastolic 2021-06-05 10:00:00 55 mm[Hg] [facility] height 2021-06-05 10:00:00 62 [in_i] [facility] weight 2021-06-05 10:00:00 126.6 [lb_av] [facility] temperature 2021-06-05 10:00:00 98.2 [degF] [facility] bmi 2021-06-05 10:00:00 23.15 kg/m2 [facility] oximetry 2021-06-05 10:00:00 96 % [facility] blood pressure systolic 2021-06-05 10:00:00 124 mm[Hg] [facility] height 2021-03-05 09:00:00 62 [in_i] [facility] weight 2021-03-05 09:00:00 125.8 [lb_av] [facility] temperature 2021-03-05 09:00:00 98.4 [degF] [facility] bmi 2021-03-05 09:00:00 23.01 kg/m2 [facility] oximetry 2021-03-05 09:00:00 95 % [facility] respiratory rate 2021-03-05 09:00:00 16 /min [facility] blood pressure systolic 2021-03-05 09:00:00 119 mm[Hg] [facility] blood pressure diastolic 2021-03-05 09:00:00 57 mm[Hg] [facility] Procedures Procedure Date / Time Performed Performing Clinician Source PHACOEMULSIFICATION OF CATARACT WITH INTRAOCULAR LENS IMPLANT 2022-09-17 17:48:00 Sean Mckeon [facility] ASSIGNMENT OF BENEFITS 2022-09-15 16:29:04 Doctor Unassigned, [place] [facility] PHACOEMULSIFICATION OF CATARACT WITH INTRAOCULAR LENS IMPLANT 2022-08-27 17:06:00 Sean Mckeon [facility] POCT GLUCOSE (AUTOMATED) 2022-08-27 15:47:00 Sean Mckeon [facility] POCT GLUCOSE (AUTOMATED) 2022-08-27 15:47:00 Sean Mckeon [facility] DAY SURGERY - ADC 2022-08-27 05:01:00 Doctor Unassigned, [place] [facility] ASSIGNMENT OF BENEFITS 2022-08-18 17:10:39 Doctor Unassigned, [place] [facility] URINALYSIS 2021-11-25 02:38:00 Leia Heredia [facility] XR CHEST 1 VW 2021-11-25 01:32:14 Leia Heredia [facility] NOTICE OF PRIVACY PRACTICES 2021-11-25 01:31:09 Doctor Unassigned, [place] [facility] CONSENT/REFUSAL FOR DIAGNOSI S AND TREATMENT 2021-11-25 01:29:59 Doctor Unassigned, [place] [facility] CONSENT/REFUSAL FOR DIAGNOSI S AND TREATMENT 2021-11-25 01:29:58 Doctor Unassigned, [place] [facility] TROPONIN I 2021-11-25 01:27:00 Singer Leia [facility] COMP. METABOLIC PANEL ([id number]) 2021-11-25 01:27:00 Singer Leia [facility] CBC WITH DIFF 2021-11-25 01:27:00 Singer Leia [facility] COVID-19 (ID NOW RAPID TESTING) 2021-11-25 01:27:00 Singer Leia [facility] Encounters Start Date/Time End Date/Time Encounter Type Admission Type Attending Clinicians Care Facility Care Department Encounter ID Source 2021-11-27 12:58:56 Outpatient Timo Cassidy [facility] [id number] [facility] 2022-09-17 10:43:00 2022-09-17 12:51:00 Outpatient R SEAN MCKEON [facility] OPH [id number] [facility] 2022-09-17 10:43:00 2022-09-17 12:51:00 Hospital Encounter Sean Mckeon [facility] [id number] 350.1.13.10 4.2.7.2.686 [id number] [facility] 2022-09-17 11:26:00 2022-09-17 11:59:00 Surgery Sean Mckeon [facility] [id number] 350.1.13.10 4.2.7.2.686 [id number] [facility] 2022-09-15 00:00:00 2022-09-15 00:00:00 Orders Only Doctor Unassigned, [place] [facility] [id number] 350.1.13.10 4.2.7.2.686 [id number] [facility] 2022-08-27 10:32:00 2022-08-27 13:12:00 Outpatient R SEAN MCKEON [facility] OPH [id number] [facility] 2022-08-27 10:32:00 2022-08-27 13:12:00 Hospital Encounter Sean Mckeon [facility] [place] 1.2840.114 350.1.13.10 4.2.7.2.686 [id number] [facility] 2022-08-27 11:11:00 2022-08-27 11:44:00 Surgery Sean Mckeon [facility] [place] 1.2840.114 350.1.13.10 4.2.7.2.686 [id number] [facility] 2022-08-27 00:00:00 2022-08-27 00:00:00 Orders Only Doctor Unassigned, [place] [facility] 1.20.114 350.1.13.10 4.2.7.2.686 [id number] [facility] 2022-08-18 11:45:00 2022-08-18 12:00:00 [employer]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 Pob, Adc Lab Main [facility] 1.284.114 350.1.13.10 4.2.7.2.686 [id number] [facility] 2022-08-18 11:45:00 2022-08-18 11:45:00 Outpatient R SEAN MCKEON [facility] [id number] [facility] 2022-08-18 00:00:00 2022-08-18 00:00:00 Orders Only Doctor Unassigned, [place] [facility] 1.2.114 350.1.13.10 4.2.7.2.686 [id number] [facility] 2021-11-24 19:03:00 2021-11-24 21:55:00 Emergency X LEIA HEREDIA [facility] ERT [id number] [facility] 2021-11-24 19:03:00 2021-11-24 21:55:00 Emergency Leia Heredia [facility] [id number] 350.1.13.10 4.2.7.2.686 [id number] [facility] 2021-06-05 00:00:00 2021-06-05 00:00:00 OFFICE VISIT ESTAB PT LEVEL 4 STLMLC STLMLC [id number] [facility] 2021-06-05 00:00:00 2021-06-05 00:00:00 SUB ANNUAL [facility] ST[facility] [id number] [facility] 2021-04-24 00:00:00 2021-04-24 00:00:00 (TEL) STLMLC STLMLC [id number] [facility] 2021-03-05 00:00:00 2021-03-05 00:00:00 OFFICE VISIT NEW PT LEVEL 4 STLMLC STLMLC [id number] [facility] Results Test Description Test Time Test Comments Results Result Co mments Source [facility] 15:53:58* Test Item Value Reference Range Interpretation Comme nts POCT GLU (test code = 1356345840) 90 mg/dL 70-110 Lab Interpretation (test cod e = 20867-2) Normal [facility] [id number] 02:20:46* Test Item Value Reference Range Interpretation Comments TROPONIN I (test code = 4303208391) 0.006 ng/mL See_Comment [Automated message] The system [...] of biotin. Lab Interpretation (test code = 01711-7) Normal [facility]. METABOLIC PANEL ([id number])2021-11-25 02:08:03* Test Item Value Reference Range Interpretation Comme nts NA (test code = 9210952744) 128 mmol/L 135-145 L K (test code = 3447460548) 4.1 mmol/L 3.5-5.0 CL (test code = 8042260866) 97 mmol/L 98-108 L CO2 TOTAL (test code = 8546825701) 26 mmol/L 23-31 AGAP (test code = 7539509830) 2-16 BUN (test code = 5638092054) 17 mg/dL 7-23 GLUCOSE (test code = 1938183621) 104 mg/dL 70-110 CREATININE (test code = 4687343330) 0.97 mg/dL 0.50-1.04 TOTAL BILI (test code = 4311840122) 0.5 mg/dL 0.1-1.1 CALCIUM (test code = 4874455670) 8.7 mg/dL 8.6-10.6 T PROTEIN (test code = 4201398978) 6.5 g/dL 6.3-8.2 ALBUMIN (test code = 9061403201) 3.9 g/dL 3.5-5.0 ALK PHOS (test code = 4667366535) 85 U/L 34-122 ALTv (test code = 1742-6) 15 U/L 5-35 AST(SGOT) (test code = 1994092052) 27 U/L 13-40 eGFR (test code = 1845997929) mL/min/1.73m2 MARCO (test code = MARCO) Association [...] imaging tests). Lab Interpretation (test code = 92975-9) Abnormal [facility] WITH [id number] 01:51:42* Test Item Value Reference Range Interpretation Comme nts WBC (test code = 6690-2) See_Comment [Acuity[employer]ds] The system which generated this result transmitted reference range: 4.30 - 11.10 10*3/?L. The reference range was not used to interpret this result as normal/abnormal. RBC (test code = 789-8) See_Comment [[employer]] The system which generated this result transmitted [...] 35.1 g/dL 31.6-35.1 RDW-SD (test code = 92722-5) 39.7 fL 39.0-49.9 RDW-CV (test code = 788-0) 12.0 % 12.0-15.5 PLT (test code = 777-3) See_Comment [Automated [employer] ge] The system which generated this result transmitted reference range: 166 - 358 10*3/?L. The reference range was not used to interpret this result as normal/abnormal. MPV (test code = 89623-5) 9.4 fL 9.5-12.9 L NRBC/100 WBC (test code = 8440897577) See_Comment [Automated [employer] ssage] The system which generated this result transmitted reference range: 0.0 - 10.0 /100 WBCs. The reference range was not used to interpret this result as normal/abnormal. NRBC x10^3 (test code = 3609136180) <0.01 See_Comment [Automated [employer]] The system which generated this result transmitted reference range: 10*3/?L. The reference range was not used to interpret this result as normal/abnormal. GRAN MAT (NEUT) % (test code = 770-8) 78.1 % IMM GRAN % (test code = 8180615807) 0.30 % LYMPH % (test code = 736-9) 11.8 % MONO % (test code = 5905-5) 7.3 % EOS % (test code = 713-8) 1.9 % BASO % (test code = 706-2) 0.6 % GRAN MAT x10^3(ANC) (test code = 5725951062) 7.32 10*3/uL 1.88-7.09 H IMM GRAN x10^3 (test code = 5317406974) 0.03 10*3/uL 0.00-0.06 LYMPH x10^3 (test code = 731-0) 1.11 10*3/uL 1.32-3.29 L MONO x10^3 (test code = 742-7) 0.69 10*3/uL 0.33-0.92 EOS x10^3 (test code = 711-2) 0.18 10*3/uL 0.03-0.39 BASO x10^3 (test code = 704-7) 0.06 10*3/uL 0.01-0.07 Lab Interpretation (test code = 41441-2) Abnormal [facility]"
[2024-01-21] MEDS ORDERED: NA CHLORIDE 0.9% 1,000 ML ONE (18:24)
[2024-01-21] MEDS ORDERED: LEVALBUTEROL 1.25 MG/3 ML NEB ONE ×2 (18:31→20:13)
[2024-01-21] MEDS ORDERED: METHYLPREDNISOLONE 125 MG INJ ONE (18:31)
[2024-01-21] MEDS ORDERED: IPRATROPIUM BROM 0.5MG/2.5ML ONE (18:31)
[2024-01-21] MEDS ORDERED: Levofloxacin500mg IV 500 MG/100 ML BAG IV ONE (18:32)
[2024-01-21] MEDS ORDERED: predniSONE 20 MG TAB ONE (18:32)
[2024-01-21] MEDS ORDERED: NA CHLORIDE 0.9% 500 ML ONE (18:32)
--- NOTE | 2024-01-21 18:36 | EDPHYS ---
Physician Documentation [facility] Name: Terese Hernandez Age: 78 yrs Sex: Female : 1945 Arrival Date: 01/21/2024 Time: 18:01 Bed 6 Private MD: ED Physician Blaine Gomez HPI: 01/20 18:28 This 78 yrs old Female presents to ER via Unassigned with complaints of kota Shortness Of Breath. Historical: - Allergies: 18:03 Morphine; ld1 - PMHx: 18:41 COPD; ld1 - PSHx: 18:41 None; ld1 - Immunization history:: Adult Immunizations up to date, Pneumococcal vaccine status is unknown. - Social history:: Smoking status: Patient/guardian denies using tobacco, but has a distant history of tobacco abuse. - Family history:: not pertinent. ROS: 18:29 Constitutional: Negative for fever, chills, and weight loss, Eyes: Negative for injury, kota pain, redness, and discharge, ENT: Negative for injury, pain, and discharge, Neck: Negative for injury, pain, and swelling, Cardiovascular: Negative for chest pain, palpitations, and edema, Abdomen/GI: Negative for abdominal pain, nausea, vomiting, diarrhea, and constipation, Back: Negative for injury and pain, : Negative for injury, bleeding, discharge, and swelling, MS/Extremity: Negative for injury and deformity, Skin: Negative for injury, rash, and discoloration, Neuro: Negative for headache, weakness, numbness, tingling, and seizure, Psych: Negative for depression, anxiety, suicide ideation, homicidal ideation, and hallucinations, Allergy/Immunology: Negative for hives, rash, and allergies, Endocrine: Negative for neck swelling, polydipsia, polyuria, polyphagia, and marked weight changes, Hematologic/Lymphatic: Negative for swollen nodes, abnormal bleeding, and unusual bruising, 18:29 Respiratory: Positive for cough, shortness of breath, wheezing, inspiratory, expiratory, 18:29 MS/extremity: Negative for acute changes, Exam: 18:29 Constitutional: This is a well developed, well nourished patient who is awake, alert, kota and in no acute distress. Head/Face: Normocephalic, atraumatic. Eyes: Pupils equal round and reactive to light, extra-ocular motions intact. Lids and lashes normal. Conjunctiva and sclera are non-icteric and not injected. Cornea within normal limits. Periorbital areas with no swelling, redness, or edema. ENT: Nares patent. No nasal discharge, no septal abnormalities noted. Tympanic membranes are normal and external auditory canals are clear. Oropharynx with no redness, swelling, or masses, exudates, or evidence of obstruction, uvula midline. Mucous membranes moist. Neck: Trachea midline, no thyromegaly or masses palpated, and no cervical lymphadenopathy. Supple, full range of motion without nuchal rigidity, or vertebral point tenderness. No Meningismus. Chest/axilla: Normal chest wall appearance and motion. Nontender with no deformity. No lesions are appreciated. Abdomen/GI: Soft, non-tender, with normal bowel sounds. No distension or tympany. No guarding or rebound. No evidence of tenderness throughout. Back: No spinal tenderness. No costovertebral tenderness. Full range of motion. Female : Normal external genitalia. Skin: Warm, dry with normal turgor. Normal color with no rashes, no lesions, and no evidence of cellulitis. MS/ Extremity: Pulses equal, no cyanosis. Neurovascular intact. Full, normal range of motion. Neuro: Awake and alert, GCS 15, oriented to person, place, time, and situation. Cranial nerves II-XII grossly intact. Motor strength 5/5 in all extremities. Sensory grossly intact. Cerebellar exam normal. Normal gait. Psych: Awake, alert, with orientation to person, place and time. Behavior, mood, and affect are within normal limits. 18:29 Cardiovascular: Rate: tachycardic, actual rate is 102 bpm, Rhythm: regular, Pulses: Pulses are 4+ in bilateral radial, brachial, femoral, popliteal, posterior tibial and and dorsalis pedis arteries.. Heart sounds: normal, normal S1and S2, Edema: is not appreciated, JVD: is not appreciated, 18:29 ECG was reviewed by the Attending Physician. 19:34 Musculoskeletal/extremity: ROM: intact in all extremities, full active range of motion, kota full passive range of motion, in all extremities, Circulation is intact in all extremities. Sensation intact. Compartment Syndrome exam of affected extremity: is normal. DVT Exam: No signs of deep vein thrombosis. no pain, no swelling, no tenderness, negative Homans' sign noted on exam, no appreciated bluish discoloration, no erythema, no increased warmth, 20:58 Repeat EKG at 19:54 reveals sinus tachycardia at the rate of 110, low voltage QRS, sp4 otherwise nonremarkable. No ST elevation or depression Vital Signs: 18:00 Pulse Ox 90% on 2 lpm NC; ld1 18:40 BP 137 / 69; Pulse 97; Resp 18; Temp 98.1(TE); Pulse Ox 97% on 9 lpm Nebulizer Mask; ld1 Weight 51.71 kg; Height 5 ft. 3 in. ; Pain 0/10; 19:00 BP 144 / 68; Pulse 102; Resp 20; Pulse Ox 100% on BiPAP; jb4 20:00 BP 144 / 73; Pulse 113; Resp 22; Pulse Ox 94% on 4 lpm NC; jb4 21:00 BP 140 / 65; Pulse 113; Resp 22; Pulse Ox 93% on 15 lpm Venturi mask; FiO2 50 %; jb4 22:00 BP 144 / 66; Pulse 106; Resp 16; Pulse Ox 96% on 15 lpm Venturi mask; FiO2 50 %; jb4 18:40 Body Mass Index 20.19 (51.71 kg, 160.02 cm) ld1 18:40 Pain Scale: Adult ld1 Denise Coma Score: 19:34 Eye Response: spontaneous(4). Motor Response: obeys commands(6). Verbal Response: kota oriented(5). Total: 15. MDM: 18:11 Patient medically screened. kota 18:36 Differential diagnosis: Anemia Anxiety Reaction asthma, Bronchitis CHF exacerbation, kota Chronic Obstructive Pulmonary Disease Myocardial Infarction pneumonia, pulmonary edema, reactive airway disease, Sepsis Unstable Angina. Antibiotic administration: Levaquin given. Immunization status: Pneumococcal vaccine: within last 5 years. Influenza vaccine: within last 5 years. Data reviewed: vital signs, nurses notes, lab test result(s), EKG, radiologic studies, plain films. Consideration of Admission/Observation Patient was admitted/placed on observation. Escalation of care including admission/observation considered. I considered the following discharge prescriptions or medication management in the emergency department Medications were administered in the Emergency Department. See MAR. Test considered but Not performed: CT: NO CT CHEST PE. Historians other than the Patient: PT WELL IN FORMED. Counseling: I had a detailed discussion with the patient and/or guardian regarding the historical points, exam findings, and any diagnostic results supporting the discharge/admit diagnosis, lab results, radiology results, the need for further work-up and treatment in the hospital. 01/20 18:12 Order name: Basic Metabolic Panel; Complete Time: 19:[address] [facility] 01/20 18:12 Order name: CBC with Diff; Complete Time: 19:[address] [facility] 01/20 18:12 Order name: LFT's; Complete Time: 19:[address] [facility] 01/20 18:12 Order name: Magnesium; Complete Time: 19:[address] [facility] 01/20 18:12 Order name: NT PRO-BNP; Complete Time: 19:[address] [facility] 01/20 18:12 Order name: PT-INR; Complete Time: 19:[address] [facility] 01/20 18:12 Order name: Troponin HS; Complete Time: 19:[address] [facility] 01/20 18:12 Order name: Blood Culture Adult (2) [facility] 01/20 18:12 Order name: Lactate w/ 2H reflex if indic.; Complete Time: 19:[address] [facility] 01/20 18:12 Order name: SARS RAPID; Complete Time: 19:[address] [facility] 01/20 18:12 Order name: Flu; Complete Time: 19:[address] [facility] 01/20 18:12 Order name: Urinalysis w/ reflexes [facility] 01/20 19:39 Order name: Type And Screen [facility] 01/20 19:51 Order name: Basic Metabolic Panel EDAK 01/20 19:51 Order name: Basic Metabolic Panel [facility] 01/20 19:51 Order name: Basic Metabolic Panel [facility] 01/20 19:51 Order name: Basic Metabolic Panel [facility] 01/20 19:51 Order name: CBC with Automated Diff EDMS 01/20 19:51 Order name: CBC with Automated Diff EDMS 01/20 19:51 Order name: CBC with Automated Diff EDMS 01/20 19:51 Order name: CBC with Automated Diff EDMS 01/20 20:31 Order name: ABG [facility] 01/20 21:36 Order name: ABG Arterial Blood Gas [facility] 01/20 18:12 Order name: XRAY Chest (1 view); Complete Time: 19:[address] [facility] 01/20 18:36 Order name: BIPAP [facility] 01/20 19:33 Order name: CT Chest For PE Angio [facility] 01/20 19:35 Order name: CT Abd/Pelvis - IV Contrast Only [facility] 01/20 20:38 Order name: CT EDMS 01/20 20:51 Order name: CT EDMS 01/20 18:12 Order name: EKG; Complete Time: 18:[address] [facility] 01/20 19:23 Order name: EKG; Complete Time: 19:[address] [facility] 01/20 18:12 Order name: Cardiac monitoring; Complete Time: 18:[address] [facility] 01/20 18:12 Order name: EKG - Nurse/Tech; Complete Time: 18:[address] [facility] 01/20 18:12 Order name: IV Saline Lock; Complete Time: 18:[address] [facility] 01/20 18:12 Order name: Labs collected and sent; Complete Time: 18:[address] [facility] 01/20 18:12 Order name: O2 Per Protocol; Complete Time: 18: [facility] 01/20 18:12 Order name: O2 Sat Monitoring; Complete Time: 18:[address] [facility] 01/20 19:23 Order name: EKG - Nurse/Tech; Complete Time: 21:[address] [facility] 01/20 19:33 Order name: IV - Large Bore; Complete Time: 20:[address] [facility] EC:29 Rate is 102 beats/min. Rhythm is regular. QRS Ventress is Normal. MO interval is normal. [facility] QRS interval is normal. QT interval is normal. No Q waves. T waves are Normal in leads I, II, III, aVL, aVF, V2, V3, V4, V5, V6. Clinical impression: NSR w/ Non-specific ST/T Changes. Interpreted by me. Reviewed by me. Administered Medications: 18:44 Drug: NS 0.9% IV 500 ml IV at bolus once Route: IV; Rate: bolus; Site: right ld1 antecubital; 18:44 Drug: levofloxacin IVPB 500 mg 100 ml IVPB once over 60 mins Volume: 100 ml; Route: ld1 IVPB; Infused Over: 60 mins; Site: right antecubital; 18:44 Drug: MethylPrednisoLONE IVP 125 mg IVP once Route: IVP; Site: right antecubital; ld1 18:44 Drug: Levalbuterol Inhalation 3.75 mg Inhalation once Route: Inhalation; ld1 18:44 Drug: Ipratropium Inhalation Aerosol 0.5 mg Inhalation once Route: Inhalation; ld1 18:44 Drug: predniSONE PO 40 mg PO once Route: PO; ld1 19:26 Not Given (Duplicate Order): Ondansetron Oral Disintegrating Tablet 8 mg PO once lg3 19:26 Drug: Ondansetron PO 8 mg PO once Route: PO; lg3 19:47 Drug: Famotidine IVP 20 mg IVP once; dilute with 10 mL 0.9% NaCl; give over 2 minutes jb4 Route: IVP; Site: right forearm; 19:47 Drug: Aspirin PO Chewable Tablet 162 mg PO once Route: PO; jb4 19:47 Drug: Enoxaparin Sub-Q 1 mg/kg Sub-Q once Route: Sub-Q; Site: right lower abdomen; jb4 20:27 Drug: Levalbuterol Inhalation 2.5 mg Inhalation once Route: Inhalation; jb4 21:13 Drug: NS 0.9% IV 1000 ml IV at 75 ml/hr continuous Route: IV; Rate: 75 ml/hr; Site: jb4 right antecubital; 22:54 Drug: Magnesium Sulfate IVPB 2 grams IVPB once over 2 hrs Route: IVPB; Infused Over: 2 jb4 hrs; Site: right antecubital; Disposition Summary: 01/21/24 18:36 Hospitalization Ordered Notes: Hospitalization Status: Inpatient Admission kota Provider: Favian Arnett cha Location: Telemetry/MedSurg (Inpatient) kota Condition: Fair kota Problem: new kota Symptoms: have improved kota Bed/Room Type: Standard [facility] Room Assignment: 426(01/21/24 20:37) rv1 Diagnosis - COPD/ Chronic obstructive pulmonary disease with (acute) exacerbation kota - Dyspnea kota - Hypoxemia kota - Abnormal levels of other serum enzymes - ELEVATED TROPONIN kota - Abnormal electrocardiogram [ECG] [EKG] kota - Fracture of other parts of pelvis kota - Anemia, unspecified kota Forms: - Medication Reconciliation Form kota - SBAR form kota - Leadership Thank You Letter kota Signatures: Dispatcher [employer] Blaine Tavarez MD MD cha Page, Corey, PA PA cp Bryson, James RN RN jb4 Ina Asher RN RN lg3 Evelyn Peña RN RN ld1 Siobhan Torres rv1 Sergio Oquendo MD MD sp4 Corrections: (The following items were deleted from the chart) 20:37 18:36 kota rv1
--- NOTE | 2024-01-21 18:36 | ER ---
Nurse's Notes [facility] Name: Terese Hernandez Age: 78 yrs Sex: Female : 1945 Arrival Date: 01/21/2024 Time: 18:01 Bed 6 Private MD: Diagnosis: COPD/ Chronic obstructive pulmonary disease with (acute) exacerbation;Dyspnea;Hypoxemia;Abnormal levels of other serum enzymes-ELEVATED TROPONIN;Abnormal electrocardiogram [ECG] [EKG];Fracture of other parts of pelvis;Anemia, unspecified Presentation: 01/20 18:40 Chief complaint: EMS states: toned out to patient home for SOB - pt was 86% RA. Hx of ld1 COPD. Coronavirus screen: At this time, the client does not indicate any symptoms associated with coronavirus-19. Ebola Screen: No symptoms or risks identified at this time. Initial Sepsis Screen: Does the patient meet any 2 criteria? No. Patient's initial sepsis screen is negative. Does the patient have a suspected source of infection? No. Patient's initial sepsis screen is negative. Risk Assessment: Do you want to hurt yourself or someone else? Patient reports no desire to harm self or others. Onset of symptoms was January 21, 2024. 18:40 Method Of Arrival: EMS: [facility] ld1 18:40 Acuity: MARITA 3 ld1 Triage Assessment: 18:41 General: Appears in no apparent distress. uncomfortable, Behavior is cooperative, ld1 anxious. Pain: Denies pain. EENT: No signs and/or symptoms were reported regarding the EENT system. Neuro: Level of Consciousness is awake, alert, obeys commands, Oriented to person, place, time, situation. Cardiovascular: Capillary refill < 3 seconds Patient's skin is warm and dry. Rhythm is sinus tachycardia. Respiratory: Reports shortness of breath at rest cough that is productive, Airway is patent Respiratory effort is even, labored, Breath sounds with wheezes bilaterally. Onset: The symptoms/episode began/occurred gradually, the patient has moderate shortness of breath. GI: Abdomen is flat, non-distended. : No signs and/or symptoms were reported regarding the genitourinary system. Derm: No signs and/or symptoms reported regarding the dermatologic system. Musculoskeletal: No signs and/or symptoms reported regarding the musculoskeletal system. Historical: - Allergies: 18:03 Morphine; ld1 - PMHx: 18:41 COPD; ld1 - PSHx: 18:41 None; ld1 - Immunization history:: Adult Immunizations up to date, Pneumococcal vaccine status is unknown. - Social history:: Smoking status: Patient/guardian denies using tobacco, but has a distant history of tobacco abuse. - Family history:: not pertinent. Screenin:42 [facility] ED Fall Risk Assessment (Adult) History of falling in the last 3 months, ld1 including since admission No falls in past 3 months (0 pts). Abuse screen: Denies threats or abuse. Denies injuries from another. Nutritional screening: No deficits noted. Tuberculosis screening: No symptoms or risk factors identified. Assessment: 18:42 Reassessment: See triage assessment. Received patient soiled in urine - pt reports ld1 coughing is causing her to urinate on self. Pt states "I had recent pelvis fracture last week." Cleaned patient of incontinence and placed pt on purewick. Cardiovascular: Capillary refill < 3 seconds Patient's skin is warm and dry. Rhythm is sinus tachycardia. 19:15 Reassessment: Patient appears in no apparent distress at this time. Pt continues to jb4 have labored, even respitions. 20:15 Reassessment: Patient appears in no apparent distress at this time. No changes from 4 previously documented assessment. Patient and/or family updated on plan of care and expected duration. Pain level reassessed. 21:15 Reassessment: Patient appears in no apparent distress at this time. Patient and/or jb4 family updated on plan of care and expected duration. Pain level reassessed. Patient is alert, oriented x 3, equal unlabored respirations, skin warm/dry/pink. 22:59 Reassessment: Patient appears in no apparent distress at this time. Patient and/or jb4 family updated on plan of care and expected duration. Pain level reassessed. Patient is alert, oriented x 3, equal unlabored respirations, skin warm/dry/pink. Vital Signs: 18:00 Pulse Ox 90% on 2 lpm NC; ld1 18:40 BP 137 / 69; Pulse 97; Resp 18; Temp 98.1(TE); Pulse Ox 97% on 9 lpm Nebulizer Mask; ld1 Weight 51.71 kg; Height 5 ft. 3 in. ; Pain 0/10; 19:00 BP 144 / 68; Pulse 102; Resp 20; Pulse Ox 100% on BiPAP; jb4 20:00 BP 144 / 73; Pulse 113; Resp 22; Pulse Ox 94% on 4 lpm NC; jb4 21:00 BP 140 / 65; Pulse 113; Resp 22; Pulse Ox 93% on 15 lpm Venturi mask; FiO2 50 %; jb4 22:00 BP 144 / 66; Pulse 106; Resp 16; Pulse Ox 96% on 15 lpm Venturi mask; FiO2 50 %; jb4 18:40 Body Mass Index 20.19 (51.71 kg, 160.02 cm) ld1 18:40 Pain Scale: Adult ld1 Denise Coma Score: 19:34 Eye Response: spontaneous(4). Motor Response: obeys commands(6). Verbal Response: kota oriented(5). Total: 15. ED Course: 18:02 Patient arrived in ED. ld1 18:11 Blaine Gomez MD is Attending Physician. kota 18:23 Ilya Gutierrez RN is Primary Nurse. rs5 18:35 XRAY Chest (1 view) In Process Unspecified. EDMS 18:35 Favian Arnett MD is Hospitalizing Provider. kota 18:41 Triage completed. ld1 18:41 Arm band placed on right wrist. ld1 18:42 Patient has correct armband on for positive identification. Placed in gown. Bed in low ld1 position. Call light in reach. Side rails up X2. residential monitor on. Pulse ox on. NIBP on. Door closed. Noise minimized. Warm blanket given. Cleaned of incontinence. 18:42 No provider procedures requiring assistance completed. Inserted saline lock: 22 gauge ld1 in right antecubital area, using aseptic technique. Blood collected. 18:45 Flu Sent. ld1 18:45 SARS RAPID Sent. ld1 18:45 Lactate w/ 2H reflex if indic. Sent. ld1 18:45 Blood Culture Adult (2) Sent. ld1 23:01 Provided Education on: need for admit. jb4 23:01 Patient admitted, IV remains in place. jb4 Administered Medications: 18:44 Drug: NS 0.9% IV 500 ml IV at bolus once Route: IV; Rate: bolus; Site: right ld1 antecubital; 18:44 Drug: levofloxacin IVPB 500 mg 100 ml IVPB once over 60 mins Volume: 100 ml; Route: ld1 IVPB; Infused Over: 60 mins; Site: right antecubital; 18:44 Drug: MethylPrednisoLONE IVP 125 mg IVP once Route: IVP; Site: right antecubital; ld1 18:44 Drug: Levalbuterol Inhalation 3.75 mg Inhalation once Route: Inhalation; ld1 18:44 Drug: Ipratropium Inhalation Aerosol 0.5 mg Inhalation once Route: Inhalation; ld1 18:44 Drug: predniSONE PO 40 mg PO once Route: PO; ld1 19:26 Not Given (Duplicate Order): Ondansetron Oral Disintegrating Tablet 8 mg PO once lg3 19:26 Drug: Ondansetron PO 8 mg PO once Route: PO; lg3 19:47 Drug: Famotidine IVP 20 mg IVP once; dilute with 10 mL 0.9% NaCl; give over 2 minutes jb4 Route: IVP; Site: right forearm; 19:47 Drug: Aspirin PO Chewable Tablet 162 mg PO once Route: PO; jb4 19:47 Drug: Enoxaparin Sub-Q 1 mg/kg Sub-Q once Route: Sub-Q; Site: right lower abdomen; jb4 20:27 Drug: Levalbuterol Inhalation 2.5 mg Inhalation once Route: Inhalation; jb4 21:13 Drug: NS 0.9% IV 1000 ml IV at 75 ml/hr continuous Route: IV; Rate: 75 ml/hr; Site: jb4 right antecubital; 22:54 Drug: Magnesium Sulfate IVPB 2 grams IVPB once over 2 hrs Route: IVPB; Infused Over: 2 jb4 hrs; Site: right antecubital; Medication: 18:42 VIS not applicable for this client. ld1 Outcome: 18:36 Decision to Hospitalize by Provider. kota 23:00 Patient left the ED. vc1 23:01 Admitted to Tele accompanied by nurse, via stretcher, room 426, with oxygen, with jb4 chart, Report called to JOSE Whalen 23:01 Condition: stable 23:01 Discharge instructions given to patient, family, Instructed on the need for admit, Demonstrated understanding of instructions, Signatures: Dispatcher [employer] EDMS Blaine Gomez MD MD cha Bryson, James, RN RN jb4 Ina Asher RN RN lg3 Evelyn Peña RN RN ld1 Rhonda Ramey, RN RN vc1 Ilya Gutierrez, RN RN rs5
[2024-01-21 18:38] LABS: Absolute Basophils 0.1 K/uL (0-0.5); Absolute Eosinophils 0.1 K/uL (0-0.5); Absolute Lymphocytes (CBC) 0.7 K/uL (0.7-4.9); Absolute Monocytes 0.9 K/uL (0.1-1.3); Absolute Neutrophil 7.4 K/uL (1.8-8.0); Basophils % 0.6 % (0-1.3); Eosinophils % 1.5 % (0-4.4); Hematocrit 30.3 % (36.0-45.0); Hemoglobin 10.5 g/dL (12.0-15.0); Lymphocytes % 7.3 % (15.3-44.8); MCH 32.4 pg (27.0-35.0); MCHC 34.5 g/dL (32.0-36.0); MCV 93.8 fL (80-100); MPV 7.4 fL (7.6-11.3); Monocytes % 9.4 % (3.3-12.3); Neutrophils % 81.2 % (41.7-73.7); Platelets 265 thou/uL (152-406); RBC Red Blood Cell Count 3.23 M/uL (3.86-4.86); Red Cell Distribution Width 13.5 % (12.1-15.2)
[2024-01-21 18:39] LABS: PT Prothrombin Time 10.5 SECONDS (9.5-12.5); Protime INR 0.95
--- NOTE | 2024-01-21 18:51 | RAD REPORT ---
EXAM DESCRIPTION: Luisa Single View01/21/2024 6:33 pm CLINICAL HISTORY: cough COMPARISON: 2020 FINDINGS: Lungs are hyperaerated Mild left basilar lung opacities Heart is normal size IMPRESSION: Mild left basilar lung opacities may indicate a mild pneumonia
[2024-01-21 19:05] LABS: SARS-CoV-2 Antigen CONTROL BLUE LINE VIS/BG OK; SARS-CoV-2 Antigen Rapid Res Negative (Negative)
[2024-01-21 19:06] LABS: Albumin 2.8 g/dL (3.4-5.0); Albumin/Globulin Ratio 0.8 (1.1-1.8); Anion Gap 12.3 mEq/L (5.0-15.0); Bilirubin Direct 0.1 mg/dL (0-0.2); Bilirubin Indirect, Calculated 0.3 mg/dL (0.2-0.8); Bilirubin Total 0.4 mg/dL (0.2-1.0); Globulin 3.5 g/dL (2.3-3.5); Magnesium 1.9 mg/dL (1.6-2.4); Potassium 4.3 mEq/L (3.5-5.1); Protein, Total 6.3 g/dL (6.4-8.2)
[2024-01-21 19:12] LABS: Troponin High Sensitivity 231.5 pg/mL (<58.9)
[2024-01-21] MEDS ORDERED: ONDANSETRON 4 MG (ODT) TAB ONE (19:23)
[2024-01-21] MEDS ORDERED: ASPIRIN 81 MG CHEWABLE TABLET ONE (19:34)
[2024-01-21] MEDS ORDERED: ENOXAPARIN 60 MG/0.6 ML SQ ONE (19:34)
[2024-01-21] MEDS ORDERED: FAMOTIDINE 20 MG/2 ML VIAL IV ONE (19:34)
--- NOTE | 2024-01-21 20:37 | RAD REPORT ---
EXAM DESCRIPTION: CT - Chest For Pe Angio - 01/21/2024 8:19 pm CLINICAL HISTORY: sob COMPARISON: 2022 TECHNIQUE: Dynamically enhanced axial 3 mm thick images of the chest were obtained during administra tion of 100 mL Isovue 370 IV contrast. Coronal and oblique reconstruction images were generated and r eviewed. Exam utilizes a protocol for optimal evaluation of pulmonary arterial tree. Maximum intensity projections 3D imaging was utilized All CT scans are performed using dose optimization technique as appropriate and may include automated exposure control or mA/KV adjustment according to patient size. FINDINGS: A pulmonary embolus is not seen. A thoracic aortic aneurysm is not noted. A pleural effusion is not seen. A pericardial effusion is not seen. A lung consolidation is not present. COPD. Mild chronic appearing lung opacities Breast implants IMPRESSION: Negative for a pulmonary embolism.
--- NOTE | 2024-01-21 20:51 | RAD REPORT ---
EXAM DESCRIPTION: CT - Abdomen Pelvis W Contrast - 01/21/2024 8:19 pm CLINICAL HISTORY: Abdominal pain COMPARISON: January 15 and January 18, 2024 CT TECHNIQUE: Computed axial tomography of the abdomen pelvis was obtained. 100 cc Isovue-300 was admin istered intravenously. Oral contrast was not requested which limits evaluation of bowel and appendix All CT scans are performed using dose optimization technique as appropriate and may include automated exposure control or mA/KV adjustment according to patient size. FINDINGS: The liver, spleen, pancreas, adrenal and kidneys appear unremarkable. There is no evidence of diverticulitis. Comminuted mildly to moderately displaced left pubic bone/superior pubic ramus fracture. The displace ment has mildly worsened since the prior exam The extraperitoneal blood surrounding bladder has diminished IMPRESSION: Comminuted mildly to moderately displaced left pubic bone/superior pubic ramus fracture. The displacement has mildly worsened since the prior exam The extraperitoneal blood surrounding bladder has diminished
[2024-01-21 21:08] LABS: Arterial Blood Carboxyhemoglob 1.2 % (0-1.5); Blood Gas Oxyhemoglobin 95.3 % (94-97); Blood Gas THB 10.5 g/dl (12-18); Blood O2 Saturation 97.9 % (92-98.5)
[2024-01-21] MEDS ORDERED: Magnesium Sulfate 2gm IVPB 2 G/50 ML BAG IV ONE (22:30)
--- NOTE | 2024-01-21 22:43 | P.HP ---
Certification for Inpatient Patient admitted to: Observation With expected LOS: <2 Midnights Practitioner: I am a practitioner with admitting privileges, knowledge of patient current condition, hospital course, and medical plan of care. Services: Services provided to patient in accordance with Admission requirements found in Title 42 Section 412.3 of the Code of Federal Regulations Patient History Date of Service: 01/22/24 Reason for admission: COPD exacerbation. History of Present Illness: 78-year-old female patient with medical history significant for COPD, reflux esophagitis, hypothyroidism was evaluated for episode of worsening shortness of breath. She also has cough with some mild sputum production and chest congestion. She denies overt episode of fever, chills, rigor. She did have episode of fall and sustained injury to the pelvic area. Imaging studies done in the ED was concerning for a comminuted mildly displaced pubic rami fracture and chest x-ray was concerning for COPD. She was admitted for inpatient care and IV antibiotic therapy. She denies overt episode of chest pain but she does continues to feel short of breath and congested. Allergies morphine Allergy (Verified 01/08/15 08:35) Rash Home Medications: Albuterol Sulfate [Albuterol Sulfate Hfa] 1 puff IN BID PRN 01/21/24 Fluoxetine HCl [Prozac] 40 mg PO DAILY 01/21/24 Fluticasone/Umeclidin/Vilanter [Trelegy Ellipta 100-62.5-25] 1 each IH DAILY 01/21/24 Gabapentin 600 mg PO BEDTIME 01/21/24 Levothyroxine [Synthroid*] 1 tab PO BEDTIME 01/21/24 Montelukast Sodium [Singulair] 10 mg PO BEDTIME 01/21/24 Pantoprazole [Protonix Tab*] 1 tab PO DAILY 01/21/24 buPROPion HCL [Bupropion Xl] 300 mg PO DAILY 01/21/24 Review of Systems General: Malaise Eyes: Unremarkable ENT: Unremarkable Respiratory: Cough, Shortness of Breath, SOB with Excertion, Unremarkable Cardiovascular: Unremarkable Gastrointestinal: Unremarkable Genitourinary: Unremarkable Musculoskeletal: Unremarkable Integumentary: Unremarkable Neurological: Unremarkable Lymphatics: Unremarkable Physical Examination - Vital Signs Pulse: 97 Pulse Ox (%): 100 - Physical Exam General: Alert, Mild distress HEENT: Atraumatic Neck: Supple Respiratory: Diminished Cardiovascular: Regular rate/rhythm, Normal S1 S2 Gastrointestinal: Soft and benign Neurological: Normal speech, Normal strength at 5/5 x4 extr - Studies Laboratory Data (last 24 hrs) 01/21/24 01/21/24 01/21/24 18:22 18:22 18:22 WBC 9.10 Hgb 10.5 L Hct 30.3 L Plt Count 265 PT 10.5 INR 0.95 Sodium 132 L Potassium 4.3 BUN 22 H Creatinine 0.85 Glucose 109 H Magnesium 1.9 Total Bilirubin 0.4 AST 28 ALT 21 Alkaline Phosphatase 72 Microbiology Data (last 24 hrs): 01/21/24 18:25 Nasopharnyx Influenza Type A Antigen Screen - Final 01/21/24 18:25 Nasopharnyx Influenza Type B Antigen Screen - Final Assessment and Plan - Plan COPD with exacerbation: Patient does have significant clinical finding. Continue supplemental oxygen, DuoNeb breathing treatment as needed. Solu-Medrol to be continued for COPD exacerbation management. Will continue empiric antibiotic therapy with Levaquin. Hip fracture: Patient has a significant displaced and comminuted pubic rami fracture. Continue bedrest and pain control. Will have PT evaluate. NSTEMI: Troponin is elevated at 231. Start aspirin today. Will trend troponin and have on telemetry. Will have cardiology evaluate if needed. Reflux esophagitis: Will continue pantoprazole therapy. Hypothyroidism: Continue levothyroxine. Prophylaxis: Lovenox for DVT prophylaxis. CODE STATUS: Full code. Disposition: We will treat COPD exacerbation and she will be discharged once deemed clinically stable. - Advance Directives Does patient have a Living Will: No Does patient have a Durable POA for Healthcare: No
[2024-01-21 23:35] VITALS: BMI 20.2
[2024-01-22] MEDS: ACETAMINOPHEN 500 MG TAB PO PRN (00:08)
[2024-01-22] MEDS ORDERED: guaiFENesin 100 MG/5 ML UCUP PO PRN (05:33)
[2024-01-22] MEDS: Levofloxacin500mg IV 500 MG/100 ML BAG IV SCH (05:43)
[2024-01-22] MEDS: METHYLPREDNISOLONE 40 MG INJ IV SCH (05:43)
[2024-01-22] MEDS: IPRATROPIUM BROM 0.5MG/2.5ML NEB PRN (05:54)
[2024-01-22] MEDS: ALBUTEROL 2.5 MG/3 ML NEB SOL NEB PRN (05:54)
[2024-01-22] MEDS: PANTOPRAZOLE 40MG TABLET PO SCH (06:46)
[2024-01-22 07:57] LABS: Absolute Lymphocytes (CBC) 0.2 K/uL (0.7-4.9); Absolute Monocytes 0.4 K/uL (0.1-1.3); Absolute Neutrophil 10.8 K/uL (1.8-8.0); Basophils % 0.2 % (0-1.3); Hematocrit 28.3 % (36.0-45.0); Hemoglobin 9.9 g/dL (12.0-15.0); Lymphocytes % 1.6 % (15.3-44.8); MCH 32.4 pg (27.0-35.0); MCHC 34.8 g/dL (32.0-36.0); MCV 93.1 fL (80-100); MPV 7.1 fL (7.6-11.3); Monocytes % 3.9 % (3.3-12.3); Neutrophils % 94.3 % (41.7-73.7); Platelets 282 thou/uL (152-406); RBC Red Blood Cell Count 3.04 M/uL (3.86-4.86); Red Cell Distribution Width 13.1 % (12.1-15.2)
[2024-01-22 08:13] LABS: Anion Gap 11.1 mEq/L (5.0-15.0); Potassium 4.1 mEq/L (3.5-5.1)
[2024-01-22] MEDS: ONDANSETRON 4 MG/2 ML VIAL IV PRN (08:39)
[2024-01-22] MEDS: **PT MED**Fluticasone/Umeclidin/Vilanter [Trelegy Ellipta 100-62.5-25] Blst.W.Dev IH SCH (09:00)
[2024-01-22] MEDS: FLUOXETINE 20 MG CAP PO SCH (09:00)
[2024-01-22] MEDS: BUPROPION HCL XL 150 MG TAB PO SCH (09:00)
[2024-01-22] MEDS: ASPIRIN 81 MG CHEWABLE TABLET PO SCH (09:00)
[2024-01-22] MEDS: ALPRAZOLAM 0.5 MG TABLET PO ONE ×2 (09:09→15:27)
[2024-01-22] MEDS: METOPROLOL TARTRATE 5 MG/5 ML INJ IV STA ×2 (09:09→17:18)
[2024-01-22] MEDS: ENOXAPARIN 40 MG/0.4 ML SQ SCH (09:19)
[2024-01-22 09:24] LABS: Platelet Estimate ADEQ; White Blood Cell Scan OK (OK)
[2024-01-22 09:25] LABS: Blood Morphology Comment NOT SEEN (NOT SEEN)
[2024-01-22] MEDS ORDERED: PNEUMOCOCCAL VACCINE 0.5 ML IMVAC ONE (12:00)
[2024-01-22] MEDS ORDERED: INFLUENZA VACCINE (for 6+ mo) 0.5 ML DOSE IMVAC ONE (12:00)
--- NOTE | 2024-01-22 12:10 | RAD REPORT ---
EXAM DESCRIPTION: Luisa Single View01/22/2024 12:01 pm CLINICAL HISTORY: Chest pain COMPARISON: CT chest January 21, 2024 FINDINGS: 8 millimeter left lower lobe nodule is more clearly seen on the CT chest. Lungs are hyperaerated. The remainder of the lungs appear clear of acute infiltrate. Heart is normal size
--- NOTE | 2024-01-22 12:18 | P.CNS ---
Date of Consult: 01/22/24 Reason for Consult: COPD exacerbation Chief Complaint: COPD exacerbation. History of Present Illness: Patient is 78 years of age with a history of COPD admitted with worsening dyspnea over the past four days mild sputum production denies any fever chills or chest pain or problems started when she had a displaced pubic rami fracture that was about four days ago patient has difficulty ambulating she does use trilogy at home still continues to smoke. Compliant with their inhalers patients troponins significantly elevated Allergies morphine Allergy (Verified 01/08/15 08:35) Rash Home Medications: Albuterol Sulfate [Albuterol Sulfate Hfa] 1 puff IN BID PRN 01/21/24 Fluoxetine HCl [Prozac] 40 mg PO DAILY 01/21/24 Fluticasone/Umeclidin/Vilanter [Trelegy Ellipta 100-62.5-25] 1 each IH DAILY 01/21/24 Gabapentin 600 mg PO BEDTIME 01/21/24 Levothyroxine [Synthroid*] 1 tab PO BEDTIME 01/21/24 Montelukast Sodium [Singulair] 10 mg PO BEDTIME 01/21/24 Pantoprazole [Protonix Tab*] 1 tab PO DAILY 01/21/24 buPROPion HCL [Bupropion Xl] 300 mg PO DAILY 01/21/24 - Past Medical/Surgical History Diabetic: No -: COPD -: Asthma -: tummy tuck -: cervical fusion - Social History Smoking Status: Former smoker Place of Residence: Home Review of Systems 10-point ROS is otherwise unremarkable General: Weakness Respiratory: Cough, Shortness of Breath Physical Examination Temp Pulse Resp BP Pulse Ox 98 F 103 H 20 156/96 H 97 01/22/24 08:00 01/22/24 09:09 01/22/24 08:00 01/22/24 09:09 01/22/24 08:00 General: Alert, Oriented x3, Mild distress Respiratory: Clear to auscultation bilaterally, Diminished Cardiovascular: No edema, Regular rate/rhythm, Normal S1 S2 Gastrointestinal: Normal bowel sounds, Non-distended Laboratory Data (last 24 hrs) 01/22/24 01/22/24 01/21/24 07:24 07:24 18:22 WBC 11.50 H Hgb 9.9 L Hct 28.3 L Plt Count 282 PT 10.5 INR 0.95 Sodium 131 L Potassium 4.1 BUN 14 Creatinine 0.78 Glucose 126 H Magnesium Total Bilirubin AST ALT Alkaline Phosphatase 01/21/24 01/21/24 18:22 18:22 WBC 9.10 Hgb 10.5 L Hct 30.3 L Plt Count 265 PT INR Sodium 132 L Potassium 4.3 BUN 22 H Creatinine 0.85 Glucose 109 H Magnesium 1.9 Total Bilirubin 0.4 AST 28 ALT 21 Alkaline Phosphatase 72 - Problems (1) COPD exacerbation Current Visit: Yes Status: Acute Plan: Patient is 78 years of age admitted with worsening dyspnea for the past four days presumed COPD exacerbation change to PO prednisone DC antibiotics CT pulmonary angiogram does not show any evidence of pulmonary embolism or consolidation. Continue with patients of bronchodilators at home lab CT scans all reviewedVital signs satisfactory oxygenation satisfactory blood gases show mild respiratory alkalosis (2) Non-STEMI (non-ST elevated myocardial infarction) Current Visit: Yes Status: Acute Plan: Patient admitted with a non-STEMI troponins have increase significantly start patient on Lovenox and antiplatelet agent [place] at 19:54 reveals sinus tachycardia at the rate of 110, low voltage QRS, otherwise nonremarkable. No ST elevation or depression
[2024-01-22] MEDS: METOPROLOL XL 25 MG TAB PO SCH (12:32)
[2024-01-22] MEDS: IPRATROPIUM BROM 0.5MG/2.5ML NEB SCH (13:00)
[2024-01-22] MEDS ORDERED: ALBUTEROL 2.5 MG/3 ML NEB SOL NEB PRN (14:09)
--- NOTE | 2024-01-22 14:11 | ECHO ---
HEIGHT: 5 ft 3 in WEIGHT: 114 lb 0 oz DATE OF STUDY: 01/22/[address]: Fiona Michaels MD 2-DIMENSIONAL: YES M.MODE: YES DOPPLER: YES COLOR FLOW: YES TDS: PORTABLE: YES DEFINITY: BUBBLE STUDY: DIAGNOSIS: ELEVATED TROPONIN CARDIAC HISTORY: CATHERIZATION: NO SURGERY: NO PROSTHETIC VALVE: NO PACEMAKER: NO MEASUREMENTS (cm) DIASTOLIC (NORMALS) SYSTOLIC (NORMALS) IVSd 1.0 (0.6-1.2) LA Diam 2.6 (1.9-4.0) LVEF 51% LVIDd 4.0 (3.5-5.7) LVIDs 2.9 (2.0-3.5) %FS 26% LVPWd 1.0 (0.6-1.2) Ao Diam 2.5 (2.0-3.7) 2 DIMENSIONAL ASSESSMENT: RIGHT ATRIUM: NORMAL LEFT ATRIUM: NORMAL RIGHT VENTRICLE: NORMAL LEFT VENTRICLE: NORMAL TRICUSPID VALVE: NORMAL MITRAL VALVE: NORMAL PULMONIC VALVE: NORMAL AORTIC VALVE: NORMAL PERICARDIAL EFFUSION: NONE AORTIC ROOT: NORMAL LEFT VENTRICULAR WALL MOTION: NORMAL DOPPLER/COLOR FLOW: GRADE I DIASTOLIC DYSFUNCTION COMMENTS: 1. NORMAL LEFT VENTRICULAR SYSTOLIC FUNCTION, EJECTION FRACTION 55-60%, NORMAL WALL MOTION 2. GRADE I DIASTOLIC DYSFUNCTION TECHNOLOGIST: MATI MENDEZ
[2024-01-22] MEDS: BENZONATATE 100 MG CAP PO PRN (14:17)
--- NOTE | 2024-01-22 15:06 | P.CNS ---
Date of Consult: 01/22/24 Chief Complaint: COPD exacerbation. History of Present Illness: Patient with PMH of [employer], had a recent fall with pubic bone fracture, she was recently discharged from [facility] went back home and was trying to do physical activity where she had significant BLANTON and cough, she started having chest discomfort with that. Allergies morphine Allergy (Verified 01/08/15 08:35) Rash Home Medications: Albuterol Sulfate [Albuterol Sulfate Hfa] 1 puff IN BID PRN 01/21/24 Fluoxetine HCl [Prozac] 40 mg PO DAILY 01/21/24 Fluticasone/Umeclidin/Vilanter [Trelegy Ellipta 100-62.5-25] 1 each IH DAILY 01/21/24 Gabapentin 600 mg PO BEDTIME 01/21/24 Levothyroxine [Synthroid*] 1 tab PO BEDTIME 01/21/24 Montelukast Sodium [Singulair] 10 mg PO BEDTIME 01/21/24 Pantoprazole [Protonix Tab*] 1 tab PO DAILY 01/21/24 buPROPion HCL [Bupropion Xl] 300 mg PO DAILY 01/21/24 - Past Medical/Surgical History Diabetic: No -: COPD -: Asthma -: tummy tuck -: cervical fusion - Social History Smoking Status: Former smoker Place of Residence: Home Review of Systems 10-point ROS is otherwise unremarkable Physical Examination Temp Pulse Resp BP Pulse Ox 97.7 F 79 17 164/73 H 96 01/22/24 12:00 01/22/24 12:32 01/22/24 12:00 01/22/24 12:32 01/22/24 12:00 General: Alert, Oriented x3 HEENT: Atraumatic Neck: Supple Respiratory: Expiratory wheezes, Other (tachypnea) Cardiovascular: No edema, Normal S1 S2 Gastrointestinal: Normal bowel sounds Laboratory Data (last 24 hrs) 01/22/24 01/22/24 01/21/24 07:24 07:24 18:22 WBC 11.50 H Hgb 9.9 L Hct 28.3 L Plt Count 282 PT 10.5 INR 0.95 Sodium 131 L Potassium 4.1 BUN 14 Creatinine 0.78 Glucose 126 H Magnesium Total Bilirubin AST ALT Alkaline Phosphatase 01/21/24 01/21/24 18:22 18:22 WBC 9.10 Hgb 10.5 L Hct 30.3 L Plt Count 265 PT INR Sodium 132 L Potassium 4.3 BUN 22 H Creatinine 0.85 Glucose 109 H Magnesium 1.9 Total Bilirubin 0.4 AST 28 ALT 21 Alkaline Phosphatase 72 - Problems (1) Non-STEMI (non-ST elevated myocardial infarction) Current Visit: Yes Status: Acute Plan: Patient is having significant rise in troponin, she is tachypnic and having hard time breathing. her echo shows normal ejection fraction, explained in detail to patient and daughter that she will need coronary angiogram as soon as possible, especially if troponin keep rising and that our cathode ray tube assembler is down today so it will not happen until thursday. i would suggest to transfer patient to higher acuity care where that have a cathode ray tube assembler team naturopathic oncology provider as patient might require cardiac cath on the weekend. Continue therapeutic Lovenox Continue ASA 81 mg daily Continue Lipitor 40 mg daily.
--- NOTE | 2024-01-22 16:36 | P.PN ---
Subjective Date of Service: 01/22/24 Patient was really tachypneic when I walked into see her this morning. Her family was at bedside thought she was having an anxiety attack. However, after discussing the case with the nurse her troponins have been significantly elevated today. Her troponins went from 200-900 today. We have consulted cardi ology and we have a stat chest x-ray pending. Echocardiogram has been ordered as well. I went back and reassessed the patient after all these tests were done. I spoke to the family and after discussion with cardiology they are agreeable to transfer. Will go ahead and initiate transfer to [facility] for cardiac care. Patient may need coronary intervention. Patient recently had her a few weeks ago, and ever since then she has been really depressed and getting anxious. Her family feels like this is more anxiety related and I did discuss with them the significance of her elevated troponin. They do have a family member who is a physical therapist as well. Patient apparently had fallen about a week and a half ago. After the fall she was having a lot of pain on ambulation. She had one of her grandchildren work with her who was a physical therapist. She has been doing really well and ambulating long distances. However, yesterday she was getting short of breath and the family was very concerned with her respiratory status. She had quit smoking 2 weeks ago as well. At this time patient will be transferred to a tertiary care facility where they have cardiology services and the ability to do cardiac catheterization as needed.. Review of Systems 10-point ROS is otherwise unremarkable Physical Examination - Vital Signs Temperature: 97.7 F Blood Pressure: 164/73 Pulse: 79 Respirations: 17 Pulse Ox (%): 96 - Physical Exam General: Alert, In no apparent distress, Oriented x3 HEENT: Atraumatic, PERRLA, EOMI Neck: Supple, JVD not distended Respiratory: Diminished, Expiratory wheezes Cardiovascular: Other (Diminished heart sounds) Gastrointestinal: Normal bowel sounds, Soft and benign, Non-distended, No tenderness Musculoskeletal: No tenderness Integumentary: No rashes Neurological: Sensation intact, Cranial nerves 3-12 intact, Normal affect Lymphatics: No axilla or inguinal lymphadenopathy - Studies Laboratory Data (last 24 hrs) 01/22/24 01/22/24 01/21/24 07:24 07:24 18:22 WBC 11.50 H Hgb 9.9 L Hct 28.3 L Plt Count 282 PT 10.5 INR 0.95 Sodium 131 L Potassium 4.1 BUN 14 Creatinine 0.78 Glucose 126 H Magnesium Total Bilirubin AST ALT Alkaline Phosphatase 01/21/24 01/21/24 18:22 18:22 WBC 9.10 Hgb 10.5 L Hct 30.3 L Plt Count 265 PT INR Sodium 132 L Potassium 4.3 BUN 22 H Creatinine 0.85 Glucose 109 H Magnesium 1.9 Total Bilirubin 0.4 AST 28 ALT 21 Alkaline Phosphatase 72 Microbiology Data (last 24 hrs): 01/21/24 18:25 Nasopharnyx Influenza Type A Antigen Screen - Final 01/21/24 18:25 Nasopharnyx Influenza Type B Antigen Screen - Final Medications List Reviewed: Yes Assessment & Plan - Problems (Diagnosis) (1) Acute exacerbation of chronic obstructive pulmonary disease (COPD) Current Visit: Yes Status: Acute (2) Non-STEMI (non-ST elevated myocardial infarction) Current Visit: Yes Status: Acute (3) Anxiety disorder Current Visit: Yes Status: Acute (4) Hypoalbuminemia Current Visit: Yes Status: Acute (5) Hyponatremia Current Visit: Yes Status: Acute (6) Hypertension Current Visit: Yes Status: Acute - Plan Plan: 1. Plan is to transfer patient to a tertiary care facility. Anticoagulate patient and regulate blood pressure and heart rate. Spoke with cardiology and they are agreeable to the plan of care. 2. COPD continue with nebs steroids and antibiotics 3. Anxiety disorders; continue with anxiolytics 4. Superior and inferior pubic rami fracture; pain control and physical therapy once patient's cardiac status is stabilized 5. GI DVT prophylaxis Transfer center has been notified. I will Contact him when they have a bed available at [facility] [place]. Plan will be to transfer her to their under the care of cardiology as our cardiac catheterization lab is not functional. Discharge Plan: Home Plan to discharge in: Greater than 2 days - Advance Directives Does patient have a Living Will: No Does patient have a Durable POA for Healthcare: No - Code Status/Comfort Care Code Status Assessed: Yes Code Status: Full Code Critical Care: No Time Spent Managing PTS Care (In Minutes): 45
[2024-01-22 17:06] VITALS: TEMP 97.7
[2024-01-22] MEDS: METOPROLOL XL 50 MG TAB PO SCH (17:16)
[2024-01-22] MEDS: FUROSEMIDE 20 MG/ 2ML VIAL IV ONE (17:18)
[2024-01-22 17:35] VITALS: BP 166/72
[2024-01-22] MEDS ORDERED: MONTELUKAST 10 MG TAB PO SCH (21:00)
[2024-01-22] MEDS ORDERED: ENOXAPARIN 60 MG/0.6 ML SQ SCH (21:00)
[2024-01-22] MEDS ORDERED: LEVOTHYROXINE SOD 0.075 MG TAB PO SCH (21:00)
[2024-01-22] MEDS ORDERED: GABAPENTIN 300 MG CAP PO SCH (21:00)
[2024-01-22] MEDS ORDERED: clonazePAM 0.5 MG TAB PO SCH (21:00)
[2024-01-22] MEDS ORDERED: predniSONE 20 MG TAB PO SCH (21:00)
[2024-01-22] MEDS ORDERED: ATORVASTATIN 40 MG TAB PO SCH (21:00)
[2024-01-22 21:59] VITALS: O2SAT 96
--- NOTE | 2024-01-25 14:27 | EKG ---
Test Date: 2024-01-22 Test Time: 09:01:11 Rod Welder: FEDERICO MEASUREMENT RESULTS: Intervals: Rate: 102 IN: 172 QRSD: 64 QT: 372 QTc: 484 [place]: P: 69 IN: 172 QRS: 28 T: 48 INTERPRETIVE STATEMENTS: Sinus tachycardia Low voltage QRS Nonspecific ST and T wave abnormality Abnormal ECG Compared to ECG 03/12/2005 05:44:00 Low QRS voltage now present Sinus bradycardia no longer present T-wave abnormality no longer present ST (T wave) deviation still present Electronically Signed On 01-25-24 14:17:06 CDT by Jamaal Madera
--- NOTE | 2024-01-25 14:29 | EKG ---
Test Date: 2024-01-21 Test Time: 19:54:15 Radio Television Technical Director: COOPER MEASUREMENT RESULTS: Intervals: Rate: 110 IN: 168 QRSD: 54 QT: 344 QTc: 465 [place]: P: 78 IN: 168 QRS: 85 T: 80 INTERPRETIVE STATEMENTS: Sinus tachycardia Low voltage QRS Borderline ECG Compared to ECG 03/12/2005 05:44:00 Low QRS voltage now present Sinus bradycardia no longer present ST (T wave) deviation no longer present T-wave abnormality no longer present Electronically Signed On 01-25-24 14:17:29 CDT by Jamaal Madera
--- NOTE | 2024-01-25 14:29 | EKG ---
Test Date: 2024-01-21 Test Time: 17:16:01 Trolley Worker: ELIAZAR MEASUREMENT RESULTS: Intervals: Rate: 102 MT: 154 QRSD: 64 QT: 340 QTc: 443 [place]: P: 95 MT: 154 QRS: 70 T: 74 INTERPRETIVE STATEMENTS: Sinus tachycardia Low voltage QRS ST & T wave abnormality, consider inferior ischemia Abnormal ECG Compared to ECG 03/12/2005 05:44:00 Low QRS voltage now present Possible ischemia now present Sinus bradycardia no longer present T-wave abnormality no longer present ST (T wave) deviation still present Electronically Signed On 01-25-24 14:17:35 CDT by Jamaal Madera
== END 2024-01-22 20:11 | disposition short-term general hospital (02) | DRG 281 ==
LOC: ER 18:01 → ERHOLD 19:43 → 4TH 21:57 → OBSVTOIN 01-22 09:08
PROVIDERS: ADMIT Internal Medicine Nephrology; ATTEND Hospitalist
DX: I21.4 Non-ST elevation (NSTEMI) myocardial infarction (principal); E87.1 Hypo-osmolality and hyponatremia; J44.1 Chronic obstructive pulmonary disease with (acute) exacerbation; S32.592A Other specified fracture of left pubis, initial encounter for closed fracture; R09.02 Hypoxemia; K21.00 Gastro-esophageal reflux disease with esophagitis, without bleeding; E03.9 Hypothyroidism, unspecified; R53.1 Weakness; D64.9 Anemia, unspecified; F41.9 Anxiety disorder, unspecified; E88.09 Other disorders of plasma-protein metabolism, not elsewhere classified; I10 Essential (primary) hypertension; Z87.891 Personal history of nicotine dependence; Z79.899 Other long term (current) drug therapy; Z88.5 Allergy status to narcotic agent; Z11.52 Encounter for screening for COVID-19
CPT/HCPCS: 36415; 36600; 71045; 71275; 74177; 80048; 80076; 82805; 83605; 83735; 83880; 84484; 85025; 85610; 86850; 86900; 86901; 87040; 87804; 87811; 93005; 93306; 94640; 94660; 96372; 99285; G0378; J1650; J2405; J2920; J2930; J3475; J7030; J7040; J7512; J7613; J7614; J7644; Q0162; Q9967

== ENCOUNTER 2024-03-16 10:31 | Emergency (ER) | payer OTHER, BC ==
[2024-03-16] MEDS ORDERED: NA CHLORIDE 0.9% 1,000 ML ONE (11:49)
[2024-03-16 11:57] LABS: Absolute Basophils 0.1 K/uL (0-0.5); Absolute Lymphocytes (CBC) 0.9 K/uL (0.7-4.9); Absolute Monocytes 0.5 K/uL (0.1-1.3); Basophils % 1.2 % (0-1.3); Eosinophils % 0.6 % (0-4.4); Hematocrit 35.1 % (36.0-45.0); Hemoglobin 11.8 g/dL (12.0-15.0); Lymphocytes % 11.4 % (15.3-44.8); MCH 30.5 pg (27.0-35.0); MCHC 33.7 g/dL (32.0-36.0); MCV 90.5 fL (80-100); Monocytes % 7.2 % (3.3-12.3); Neutrophils % 79.6 % (41.7-73.7); Platelets 484 thou/uL (152-406); RBC Red Blood Cell Count 3.87 M/uL (3.86-4.86); Red Cell Distribution Width 14.1 % (12.1-15.2)
[2024-03-16 13:36] LABS: Specific Gravity 1.027 (1.005-1.030); Sqamous Epithelial <5 /HPF (None Seen); Urine Bacteria None Seen /HPF (<20); Urine Bilirubin NEGATIVE (Negative); Urine Blood Negative (Negative); Urine Clarity Turbid (Clear); Urine Color Yellow (Yellow); Urine Culture Reflex Order NOT NEEDED; Urine Glucose NEGATIVE (Negative); Urine Ketones 2+ (Negative); Urine Microscopic Reflex YN ORDER UMIC; Urine Mucus Slight /HPF (None Seen); Urine Nitrite NEGATIVE (Negative); Urine Protein 1+ (Negative); Urine Urobilinogen 1+ (Normal); Urine WBC <5 /HPF (<5)
[2024-03-16 13:52] LABS: Albumin 2.7 g/dL (3.4-5.0); Albumin/Globulin Ratio 0.7 (1.1-1.8); Anion Gap 10.5 mEq/L (5.0-15.0); Bilirubin Total 0.4 mg/dL (0.2-1.0); Globulin 3.7 g/dL (2.3-3.5); Potassium 3.5 mEq/L (3.5-5.1); Protein, Total 6.4 g/dL (6.4-8.2)
--- NOTE | 2024-03-16 14:01 | ER ---
Nurse's Notes [facility] Name: Terese Hernandez Age: 78 yrs Sex: Female : 1945 Arrival Date: 03/16/2024 Time: 10:31 Bed 2 Private MD: Diagnosis: Dehydration;Other depressive episodes Presentation: 03/16 10:38 Chief complaint: EMS states: they were called for the patient who has not eaten or ap3 drank much since Thursday03/13/24. It is reported patients has recently and patient is reporting constant crying. patient states "I don't know why I can't stop crying." Patient denies pain at this time. Coronavirus screen: At this time, the client does not indicate any symptoms associated with coronavirus-19. Ebola Screen: No symptoms or risks identified at this time. Initial Sepsis Screen: Does the patient meet any 2 criteria? No. Patient's initial sepsis screen is negative. Does the patient have a suspected source of infection? No. Patient's initial sepsis screen is negative. Risk Assessment: Do you want to hurt yourself or someone else? Patient reports no desire to harm self or others. Onset of symptoms is unknown. Care prior to arrival: Medication(s) given: Normal saline infusion, IV initiated. 20 GA, in the left antecubital area. 10:38 Method Of Arrival: EMS: [facility] ap3 10:38 Acuity: MARITA 3 ap3 Triage Assessment: 10:41 General: Appears distressed, Behavior is crying. Pain: Denies pain. Neuro: Level of ap3 Consciousness is awake, alert, obeys commands, Oriented to person, place, time, situation. Cardiovascular: Patient's skin is warm and dry. Respiratory: Airway is patent Respiratory effort is even, unlabored, Respiratory pattern is regular, symmetrical. Historical: - Allergies: 10:41 Morphine; ap3 - PMHx: 10:41 COPD; Depressive disorder; Hypertensive disorder; ap3 - Immunization history:: Client reports having NOT received the Covid vaccine. Flu vaccine is up to date. - Infectious Disease History:: Denies. - Social history:: Smoking status: Patient denies any tobacco usage or history of. - Family history:: not pertinent. - Hospitalizations: : No recent hospitalization is reported. Screenin:42 [facility] ED Fall Risk Assessment (Adult) History of falling in the last 3 months, ap3 including since admission No falls in past 3 months (0 pts) Confusion or Disorientation No (0 pts) Intoxicated or Sedated No (0 pts) Impaired Gait No (0 pts) Mobility Assist Device Used No (0 pt) Altered Elimination No (0 pt) Score/Fall Risk Level 0 - 2 = Low Risk Oriented to surroundings, Maintained a safe environment, Educated pt \\T\\ family on fall prevention, incl call for assistance when getting out of bed, Assessed \\T\\ reinforced patient's understanding of fall precautions, Provided non-skid footwear, Hourly rounding (assess needs \\T\\ fall precautionary measures) done, Used ambulatory aids as needed (educated on \\T\\ assisted with), Used gait belt as appropriate. Abuse screen: Denies threats or abuse. Nutritional screening: No deficits noted. Tuberculosis screening: No symptoms or risk factors identified. Assessment: 10:34 General: Appears in no apparent distress. uncomfortable, Behavior is cooperative, rs5 crying. Pain: Denies pain. Neuro: Level of Consciousness is awake, alert, obeys commands, Oriented to person, place, time, situation. 10:34 Cardiovascular: Patient's skin is warm and dry. Rhythm is regular. Respiratory: Airway rs5 is patent Respiratory effort is even, unlabored, Respiratory pattern is regular, symmetrical. GI: Abdomen is round non-distended, Abd is soft and non tender X 4 quads. : No signs and/or symptoms were reported regarding the genitourinary system. EENT: No signs and/or symptoms were reported regarding the EENT system. Derm: Skin is intact, Skin is pink, warm \\T\\ dry. Musculoskeletal: Range of motion: intact in all extremities. 10:34 Reassessment: pt states "my a few months ago and I've just been rs5 having a bit of a rough time. I'm not hungry, I don't really want to do anything, but I am not suicidal or anything like that". 11:40 Reassessment: Patient and/or family updated on plan of care and expected duration. Pain rs5 level reassessed. Patient is alert, oriented x 3, equal unlabored respirations, skin warm/dry/pink. General: Behavior is calm, cooperative. 12:03 Reassessment: No changes from previously documented assessment. rs5 13:05 Reassessment: Patient and/or family updated on plan of care and expected duration. Pain rs5 level reassessed. Patient is alert, oriented x 3, equal unlabored respirations, skin warm/dry/pink. 13:45 Reassessment: No changes from previously documented assessment. General: Behavior is rs5 calm, cooperative. 14:21 Reassessment: Patient and/or family updated on plan of care and expected duration. Pain rs5 level reassessed. Patient is alert, oriented x 3, equal unlabored respirations, skin warm/dry/pink. Vital Signs: 10:38 BP 160 / 107; Pulse 93; Resp 18; Temp 97.8; Pulse Ox 100% ; Weight 51.71 kg; Height 5 ap3 ft. 2 in. ; Pain 0/10; 12:03 BP 157 / 76; Pulse 81; Resp 18; Pulse Ox 99% on R/A; rs5 13:45 BP 155 / 77; Pulse 77; Resp 18; Pulse Ox 99% on R/A; rs5 14:15 BP 150 / 72; Pulse 71; Resp 18; Pulse Ox 99% on R/A; rs5 10:38 Body Mass Index 20.85 (51.71 kg, 157.48 cm) ap3 10:38 Pain Scale: Adult ap3 ED Course: 10:33 Patient arrived in ED. rn 10:33 Nic Ghosh MD is Attending Physician. rn 10:41 Triage completed. ap3 10:42 Arm band placed on right wrist. ap3 10:42 Patient has correct armband on for positive identification. Bed in low position. Call ap3 light in reach. Side rails up X2. Pulse ox on. NIBP on. 10:43 Maintain EMS IV. Dressing intact. Good blood return noted. Gauge \\T\\ site: 20 left AC. ap3 11:30 Ilya Gutierrez, RN is Primary Nurse. rs5 11:51 Assisted to bedside commode. [id number] 12:03 No provider procedures requiring assistance completed. rs5 14:20 IV discontinued, intact, bleeding controlled, No redness/swelling at site. Pressure rs5 dressing applied. Administered Medications: 11:45 Drug: NS 0.9% IV 1000 ml IV at 1000 ml once Route: IV; Rate: 1000 ml; Site: left upper rs5 arm; 12:02 Follow up: Response: No adverse reaction rs5 Medication: 10:42 VIS not applicable for this client. ap3 Outcome: 14:00 Discharge ordered by . rn 14:20 Discharged to home ambulatory, rs5 14:20 Condition: stable 14:20 Discharge instructions given to patient, family, Instructed on discharge instructions, follow up and referral plans. Demonstrated understanding of instructions, follow-up care, 14:24 Patient left the ED. bp Signatures: Nic Ghosh MD MD rn Peltier, Hardik, RN RN bp Yarelis Castillo RN RN ap3 Ilya Gutierrez RN RN rs5 Yuval Winn [id number] Corrections: (The following items were deleted from the chart) 14:44 14:35 Reassessment: Patient and/or family updated on plan of care and expected rs5 duration. Pain level reassessed. Patient is alert, oriented x 3, equal unlabored respirations, skin warm/dry/pink. rs5 14:45 14:45 Response: No adverse reaction rs5 rs5
--- NOTE | 2024-03-16 14:01 | EDPHYS ---
Physician Documentation [facility] Name: Terese Hernandez Age: 78 yrs Sex: Female : 1945 Arrival Date: 03/16/2024 Time: 10:31 Bed 2 Private MD: ED Physician Nic Ghosh HPI: 03/16 11:04 This 78 yrs old Female presents to ER via EMS with complaints of Other, Decreased rn Appetite. 11:04 Patient reports just does not feel well, not eating or drinking lately. passed rn away 2 months ago and since then has been feeling sad and depressed. Decreased appetite, decreased energy, not eating or drinking. States has not had water in a few days. Reports no appetite. Denies any focal pain. No vomiting or diarrhea. No new medication changes.. Onset: The symptoms/episode began/occurred 2 month(s) ago. Severity of symptoms: At their worst the symptoms were moderate in the emergency department the symptoms are unchanged. The patient has not experienced similar symptoms in the past. The patient has not recently seen a physician. Historical: - Allergies: 10:41 Morphine; ap3 - PMHx: 10:41 COPD; Depressive disorder; Hypertensive disorder; ap3 - Immunization history:: Client reports having NOT received the Covid vaccine. Flu vaccine is up to date. - Infectious Disease History:: Denies. - Social history:: Smoking status: Patient denies any tobacco usage or history of. - Family history:: not pertinent. - Hospitalizations: : No recent hospitalization is reported. ROS: 11:04 Constitutional: Negative for fever, chills Neck: Negative for injury, pain, and rn swelling, Cardiovascular: Negative for chest pain, palpitations, and edema, Respiratory: Negative for shortness of breath, cough, wheezing, and pleuritic chest pain, Abdomen/GI: Negative for abdominal pain, nausea, vomiting, diarrhea, and constipation, MS/Extremity: Negative for injury and deformity, Skin: Negative for injury, rash, and discoloration, Neuro: Positive for generalized weakness Exam: 11:03 ECG was reviewed by the Attending Physician. rn 11:04 Constitutional: This is a well developed, well nourished patient who is awake, alert, rn tearful Head/Face: Normocephalic, atraumatic. ENT: Dry mucous membranes Cardiovascular: Regular rate and rhythm. No pulse deficits. Respiratory: No increased work of breathing, no retractions or nasal flaring. Abdomen/GI: Soft, non-tender Skin: Warm, dry MS/ Extremity: Pulses equal, no cyanosis. Neuro: Awake and alert, GCS 15, oriented to person, place, time, and situation. Cranial nerves II-XII grossly intact. Motor strength 4/5 in all extremities. Sensory grossly intact. Cerebellar exam normal. Vital Signs: 10:38 BP 160 / 107; Pulse 93; Resp 18; Temp 97.8; Pulse Ox 100% ; Weight 51.71 kg; Height 5 ap3 ft. 2 in. ; Pain 0/10; 12:03 BP 157 / 76; Pulse 81; Resp 18; Pulse Ox 99% on R/A; rs5 13:45 BP 155 / 77; Pulse 77; Resp 18; Pulse Ox 99% on R/A; rs5 14:15 BP 150 / 72; Pulse 71; Resp 18; Pulse Ox 99% on R/A; rs5 10:38 Body Mass Index 20.85 (51.71 kg, 157.48 cm) ap3 10:38 Pain Scale: Adult ap3 MDM: 10:33 Patient medically screened. rn 13:58 Differential Diagnosis Dehydration, depression, grief. Data reviewed: vital signs, rn nurses notes, lab test result(s), EKG, and as a result, I will discharge patient. Counseling: I had a detailed discussion with the patient and/or guardian regarding the historical points, exam findings, and any diagnostic results supporting the discharge/admit diagnosis, lab results, the need for outpatient follow up, to return to the emergency department if symptoms worsen or persist or if there are any questions or concerns that arise at home. Response to treatment: the patient's symptoms have markedly improved after treatment, and as a result, I will discharge patient. Special discussion: I discussed with the patient/guardian in detail that at this point there is no indication for admission to the hospital. It is understood, however, that if the symptoms persist or worsen the patient needs to return immediately for re-evaluation. Based on the history and exam findings, there is no indication for further emergent testing or inpatient evaluation. I discussed with the patient/guardian the need to see the primary care provider for further evaluation of the symptoms. ED course: No acute findings and workup today. Patient with dehydration, seems secondary to depression and grief due to loss of recently. Daughter here and helps take care of her. Patient and I discussed plan for increasing caloric intake and now will discharge home with return precautions and PCP follow-up.. 03/16 10:34 Order name: CBC with Diff; Complete Time: 12:34 rn 03/16 10:34 Order name: Urinalysis w/ reflexes; Complete Time: 13:54 rn 03/16 10:34 Order name: CMP; Complete Time: 13:54 rn 03/16 10:34 Order name: Lipase; Complete Time: 13:54 rn 03/16 10:34 Order name: EKG; Complete Time: 10:35 rn 03/16 10:34 Order name: IV Start; Complete Time: 10:43 rn 03/16 10:34 Order name: EKG - Nurse/Tech; Complete Time: 12:03 rn 03/16 10:34 Order name: Cardiac monitoring; Complete Time: 12:03 rn 03/16 10:34 Order name: O2 Sat Monitoring; Complete Time: 10:43 rn 03/16 10:34 Order name: Labs collected and sent; Complete Time: 12:03 rn EC:03 Rate is 74 beats/min. Rhythm is regular. QRS [place] is Normal. MA interval is normal. QRS rn interval is normal. QT interval is normal. No Q waves. T waves are Normal. No ST changes noted. Clinical impression: NSR w/ Non-specific ST/T Changes. Interpreted by me. Reviewed by me. Administered Medications: 11:45 Drug: NS 0.9% IV 1000 ml IV at 1000 ml once Route: IV; Rate: 1000 ml; Site: left upper rs5 arm; 12:02 Follow up: Response: No adverse reaction rs5 Disposition Summary: 03/16/24 14:00 Discharge Ordered Notes: Location: Home rn Problem: new rn Symptoms: have improved rn Condition: Stable rn Diagnosis - Dehydration rn - Other depressive episodes rn Followup: rn - With: Private Physician - When: As needed - Reason: Recheck today's complaints, Re-evaluation by your physician Discharge Instructions: - Discharge Summary Sheet rn - Dehydration, Elderly rn - Managing Depression, Adult rn Forms: - Medication Reconciliation Form rn - Antibiotic management intern - Prescription Opioid Use rn - Patient Portal Instructions rn - Leadership Thank You Letter rn Signatures: Dispatcher [employer] Nic Najera MD MD rn Yarelis Castillo RN RN ap3 Ilya Gutierrez RN RN rs5
[2024-03-16 14:58] VITALS: BP 135/64; TEMP 97.8; O2SAT 100
== END 2024-03-16 14:24 | disposition home or self-care (01) ==
LOC: ER 10:31
DX: E86.0 Dehydration (principal); F32.89 Other specified depressive episodes; I10 Essential (primary) hypertension; Z88.5 Allergy status to narcotic agent
CPT/HCPCS: 85025; 81001; 36415; 83690; 80053; J7030; 93005

== ENCOUNTER 2024-04-03 19:33 | Inpatient (IN) | payer OTHER, BC ==
[2024-04-03] MEDS ORDERED: ONDANSETRON 4 MG/2 ML VIAL ONE (20:18)
[2024-04-03] MEDS ORDERED: NA CHLORIDE 0.9% 1,000 ML ONE (20:18)
[2024-04-03 20:36] LABS: Absolute Eosinophils 0.6 K/uL (0-0.5); Absolute Lymphocytes (CBC) 1.3 K/uL (0.7-4.9); Absolute Monocytes 0.6 K/uL (0.1-1.3); Absolute Neutrophil 6.7 K/uL (1.8-8.0); Basophils % 0.3 % (0-1.3); Eosinophils % 6.2 % (0-4.4); Hematocrit 35.8 % (36.0-45.0); Hemoglobin 12.4 g/dL (12.0-15.0); Lymphocytes % 13.9 % (15.3-44.8); MCH 30.4 pg (27.0-35.0); MCHC 34.6 g/dL (32.0-36.0); MCV 88.1 fL (80-100); MPV 6.4 fL (7.6-11.3); Monocytes % 6.6 % (3.3-12.3); Nucleated Red Blood Cells % 0.2 % (0-0); Platelets 471 thou/uL (152-406); RBC Red Blood Cell Count 4.06 M/uL (3.86-4.86); Red Cell Distribution Width 14.5 % (12.1-15.2)
--- NOTE | 2024-04-03 21:19 | RAD REPORT ---
EXAM DESCRIPTION: Luisa Single View04/03/2024 8:59 pm CLINICAL HISTORY: Chest pain COMPARISON: January 2024 FINDINGS: Bilateral breast implants present The lungs appear clear of acute infiltrate. The heart is normal size IMPRESSION: No acute abnormalities displayed
[2024-04-03 21:39] LABS: ALT/SGPT 15 U/L (13-56); AST/SGOT 20 U/L (15-37); Albumin 3.2 g/dL (3.4-5.0); Albumin/Globulin Ratio 0.9 (1.1-1.8); Alkaline Phosphatase 226 U/L (45-117); Anion Gap 9.9 mEq/L (5.0-15.0); BUN Blood Urea Nitrogen 7 mg/dL (7-18); Bicarbonate 26 mEq/L (21-32); Bilirubin Direct < 0.2 mg/dL (0-0.2); Bilirubin Indirect, Calculated 0.2 mg/dL (0.2-0.8); Bilirubin Total 0.4 mg/dL (0.2-1.0); Globulin 3.7 g/dL (2.3-3.5); Glomerular Filtration Rate 90 ml/min (=/>90); Glucose Level 93 mg/dL (74-106); Magnesium 1.6 mg/dL (1.6-2.4); Potassium 3.9 mEq/L (3.5-5.1); Protein, Total 6.9 g/dL (6.4-8.2); Sodium Level 127 mEq/L (136-145); Troponin High Sensitivity 14.4 pg/mL (<58.9)
[2024-04-03 21:47] LABS: Specific Gravity 1.007 (1.005-1.030); Sqamous Epithelial <5 /HPF (None Seen); Urine Bacteria None Seen /HPF (<20); Urine Bilirubin NEGATIVE (Negative); Urine Blood Negative (Negative); Urine Clarity Clear (Clear); Urine Color Colorless (Yellow); Urine Culture Reflex Order NOT NEEDED; Urine Glucose NEGATIVE (Negative); Urine Ketones 1+ (Negative); Urine Micro Reflex YN NO BILL MICROSCOPIC; Urine Nitrite NEGATIVE (Negative); Urine Protein NEGATIVE (Negative); Urine RBC None Seen /HPF (None Seen); Urine Urobilinogen Normal (Normal); Urine WBC None Seen /HPF (<5)
[2024-04-03] MEDS ORDERED: PROMETHAZINE INJ 25 MG/ML AMP ONE (23:21)
[2024-04-03] MEDS ORDERED: FENTANYL CITR 100 MCG/2 ML ONE (23:37)
[2024-04-04] MEDS ORDERED: FENTANYL CITR 100 MCG/2 ML ONE (01:42)
--- NOTE | 2024-04-04 03:09 | EDPHYS ---
Physician Documentation [facility] Name: Terese Hernandez Age: 78 yrs Sex: Female : 1945 Arrival Date: 04/03/2024 Time: 19:33 Bed 19 Private MD: ED Physician Edgar Perez HPI: 04/03 19:58 This 78 yrs old Female presents to ER via Unassigned with complaints of weakness. rt 19:58 Patient presents to the ED with poor p.o. intake for several weeks as well as not rt feeling well, described as a weakness, lightheadedness for the past few days. Reports nausea, keeping her from eating or drinking. Denies having episodes of vomiting, abdominal pain. Denies other acute complaints, symptoms are moderate in severity, no other aggravating or alleviating factors.. Historical: - Allergies: 19:50 Morphine; jw7 - Home Meds: 19:50 Bupropion Oral [Active]; Fluoxetine Oral [Active]; levothyroxine oral [Active]; jw7 gabapentin oral [Active]; Lorazepam Oral [Active]; - PMHx: 19:50 COPD; depressive disorder; Hypertensive disorder; Anxiety; jw7 - PSHx: 19:50 section; Tummy Tuck; jw7 - Immunization history:: Adult Immunizations up to date, Client reports having NOT received the Covid vaccine. Pneumococcal vaccine is up to date, Flu vaccine is not up to date. - Infectious Disease History:: Denies. - Family history:: not pertinent. - Social history:: Smoking status: Patient denies any tobacco usage or history of. Patient/guardian denies using alcohol, street drugs, IV drugs. ROS: 19:58 Constitutional: Negative for fever, chills, and weight loss, Cardiovascular: Negative rt for chest pain, palpitations, and edema, Respiratory: Negative for shortness of breath, cough, wheezing, and pleuritic chest pain, MS/Extremity: Negative for injury and deformity, Skin: Negative for injury, rash, and discoloration, Neuro: Negative for headache, weakness, numbness, tingling, and seizure, 19:58 Abdomen/GI: Positive for nausea, Negative for abdominal pain, vomiting, diarrhea, 19:58 Neuro: Positive for dizziness, Negative for loss of consciousness, Exam: 19:58 Constitutional: This is a well developed, well nourished patient who is awake, alert, rt and in no acute distress. Head/Face: Normocephalic, atraumatic. Chest/axilla: Normal chest wall appearance and motion. Nontender with no deformity. No lesions are appreciated. Cardiovascular: Regular rate and rhythm with a normal S1 and S2. No gallops, murmurs, or rubs. Normal PMI, no JVD. No pulse deficits. Respiratory: Lungs have equal breath sounds bilaterally, clear to auscultation and percussion. No rales, rhonchi or wheezes noted. No increased work of breathing, no retractions or nasal flaring. Abdomen/GI: Soft, non-tender, with normal bowel sounds. No distension or tympany. No guarding or rebound. No evidence of tenderness throughout. Skin: Warm, dry with normal turgor. Normal color with no rashes, no lesions, and no evidence of cellulitis. MS/ Extremity: Pulses equal, no cyanosis. Neurovascular intact. Full, normal range of motion. Neuro: Awake and alert, GCS 15, oriented to person, place, time, and situation. Cranial nerves II-XII grossly intact. Motor strength 5/5 in all extremities. Sensory grossly intact. Cerebellar exam normal. Normal gait. 21:14 ECG was reviewed by the Attending Physician. rt Vital Signs: 19:50 BP 159 / 86; Pulse 74; Resp 20 S; Temp 98.1(O); Pulse Ox 96% on R/A; Weight 48.08 kg; jw7 Height 5 ft. 3 in. ; Pain 0/10; 20:30 BP 187 / 74; Pulse 68; Resp 18 S; Pulse Ox 97% on R/A; jw7 21:00 BP 188 / 78; Pulse 70; Resp 19 S; Pulse Ox 97% on R/A; jw7 21:30 BP 157 / 74; Pulse 66; Resp 17 S; Pulse Ox 96% on R/A; jw7 22:49 BP 198 / 91 RA Supine (auto/reg); ty 23:30 BP 186 / 69; Pulse 64; Resp 16 S; Pulse Ox 96% on R/A; jw7 06 00:30 BP 177 / 66; Pulse 74; Resp 17 S; Pulse Ox 97% on R/A; jw7 01:00 BP 169 / 66; Pulse 64; Resp 15 S; Pulse Ox 94% on R/A; jw7 02:00 BP 136 / 72; Pulse 68; Resp 15 S; Pulse Ox 93% on R/A; jw7 03:00 BP 140 / 72; Pulse 51; Resp 14 S; Pulse Ox 92% on R/A; jw7 04:00 BP 161 / 74; Pulse 56; Resp 13 S; Pulse Ox 93% on R/A; jw7 05:00 BP 171 / 71; Pulse 56; Resp 16 S; Pulse Ox 91% on R/A; jw7 06:00 BP 184 / 84; Pulse 62; Resp 14 S; Pulse Ox 99% on 2 lpm NC; 7 04/03 19:50 Body Mass Index 18.78 (48.08 kg, 160.02 cm) [facility] 04/03 19:50 Pain Scale: Adult [facility] Procedures: 03:19 Chest tube insertion: the site was prepped in sterile fashion, Chlorhexidine, Tube rt size: Pigtail, 8 Martiniquais introduced in left lateral chest wall, to pleur-e-vac, dressed with vaseline gauze, foam tape, the patient tolerated the procedure well. MDM: 04/03 19:54 Patient medically screened. rt 04/04 03:19 Differential Diagnosis Pneumothorax, nausea, vomiting, bowel obstruction. Data rt reviewed: vital signs, nurses notes, lab test result(s), radiologic studies. Consideration of Admission/Observation Patient was admitted/placed on observation. Management of patient was discussed with the following: Hospitalist: Agrees to admit. I considered the following discharge prescriptions or medication management in the emergency department Medications were administered in the Emergency Department. See MAR. Independent interpretation of the following test(s) in the Emergency Department CT Scan: My interpretation is Left-sided pneumothorax and on interpretation of CT scan images. Care significantly affected by the following chronic conditions: Chronic Obstructive Pulmonary Disease. Counseling: I had a detailed discussion with the patient and/or guardian regarding the historical points, exam findings, and any diagnostic results supporting the discharge/admit diagnosis, lab results, radiology results, the need for further work-up and treatment in the hospital. Response to treatment: the patient's symptoms have markedly improved after treatment. 04/03 19:57 Order name: Basic Metabolic Panel; Complete Time: 21:47 rt 04/03 19:57 Order name: CBC with Diff; Complete Time: 21:20 rt 04/03 19:57 Order name: LFT's; Complete Time: 21:47 rt 04/03 19:57 Order name: Magnesium; Complete Time: 21:47 rt 04/03 19:57 Order name: Troponin HS; Complete Time: 21:47 rt 04/03 20:32 Order name: UAM; Complete Time: 21:48 rt 04/04 03:36 Order name: Urinalysis w/ reflexes EDMS 04/03 19:57 Order name: XRAY Chest (1 view); Complete Time: 21:20 rt 04/03 22:36 Order name: CT Abd/Pelvis - IV Contrast Only rt 04/04 02:06 Order name: Chest Single View XRAY rt 04/03 19:57 Order name: EKG; Complete Time: 19:58 rt 04/04 03:36 Order name: CONS Physician Consult EDMS 04/03 19:57 Order name: Cardiac monitoring; Complete Time: 20:24 rt 04/03 19:57 Order name: EKG - Nurse/Tech; Complete Time: 21:04 rt 04/03 19:57 Order name: IV Saline Lock; Complete Time: 20:24 rt 04/03 19:57 Order name: Labs collected and sent; Complete Time: 20:24 rt 04/03 19:57 Order name: O2 Per Protocol; Complete Time: 20:24 rt 04/03 19:57 Order name: O2 Sat Monitoring; Complete Time: 20:24 rt EC/02 21:14 Rate is 64 beats/min. Rhythm is regular, Normal Sinus Rhythm with No ectopy. QRS [place] rt is Normal. CA interval is normal. QRS interval is normal. QT interval is normal. No Q waves. T waves are Normal. No ST changes noted. Interpreted by me. Administered Medications: 20:24 Drug: NS 0.9% IV 1000 ml IV at 1 bolus Per protocol; 1000 mL bolus Route: IV; Rate: 1 jw7 bolus; Site: left wrist; 22:51 Follow up: Response: No adverse reaction; IV Status: Completed infusion; IV Intake: jw7 1000ml 20:24 Drug: Ondansetron IVP 4 mg IVP once; over 2 minutes Route: IVP; Site: left wrist; jw7 21:00 Follow up: Response: No adverse reaction; Marked relief of symptoms jw7 23:34 Drug: Promethazine IVP 12.5 mg IVP once Route: IVP; Site: left wrist; jw7 04/04 01:11 Follow up: Response: No adverse reaction; Marked relief of symptoms jw7 04/03 23:42 Drug: fentaNYL (PF) IVP 75 mcg IVP once Route: IVP; Site: left wrist; jw7 04/04 01:10 Follow up: Response: No adverse reaction; Marked relief of symptoms; Pain is decreased jw7 01:50 Drug: fentaNYL (PF) IVP 50 mcg IVP once Route: IVP; Site: left wrist; jw7 04:34 Follow up: Response: No adverse reaction; Marked relief of symptoms; Pain is decreased jw7 Disposition Summary: 04/04/24 03:08 Hospitalization Ordered Notes: Hospitalization Status: Observation rt Provider: [place] rt Location: Telemetry/MedSurg (observation) rt Condition: Stable rt Problem: new rt Symptoms: have improved rt Bed/Room Type: Standard rt Room Assignment: [facility](04/04/24 03:43) jr12 Diagnosis - Spontaneous pneumothorax rt - Nausea and vomiting rt Forms: - Medication Reconciliation Form rt - SBAR form rt - Leadership Thank You Letter rt Critical care time excluding procedures: 03:19 Critical care time: Bedside Care: 30 minutes, Consultation: 5 minutes. Total time: 35 rt minutes Signatures: Dispatcher [employer] Felisa Canas RN RN jw7 Edgar Perez MD MD rt Radha Jaime jr12 Corrections: (The following items were deleted from the chart) 04/03 19:58 19:57 BASIC METABOLIC PANEL+C.LAB.BRZ ordered. EDMS EDMS 19:58 19:57 CBC+H.LAB.BRZ ordered. EDMS EDMS 19:58 19:57 HEPATIC FUNCTION+C.LAB.BRZ ordered. EDMS EDMS 19:58 19:57 MAGNESIUM+C.LAB.BRZ ordered. EDMS EDMS 19:58 19:57 Troponin High Sensitivity+C.LAB.BRZ ordered. EDMS EDMS 20:32 20:32 Urinalysis W/Microscopic+U.LAB.BRZ ordered. EDMS EDMS 04/04 02:07 02:07 Chest Single View+RAD.RAD.BRZ ordered. EDMS EDMS 03:43 03:08 rt jr12
--- NOTE | 2024-04-04 03:09 | ER ---
Nurse's Notes [facility] Name: Terese Hernandez Age: 78 yrs Sex: Female : 1945 Arrival Date: 04/03/2024 Time: 19:33 Bed 19 Private MD: Diagnosis: Spontaneous pneumothorax;Nausea and vomiting Presentation: 04/03 19:50 Chief complaint: Patient states: I haven't been feeling well, I've been unable to eat jw7 or drink anything and started having some nausea yesterday afternoon. Coronavirus screen: At this time, the client does not indicate any symptoms associated with coronavirus-19. Ebola Screen: No symptoms or risks identified at this time. Initial Sepsis Screen: Does the patient meet any 2 criteria? No. Patient's initial sepsis screen is negative. Does the patient have a suspected source of infection? No. Patient's initial sepsis screen is negative. Risk Assessment: Do you want to hurt yourself or someone else? Patient reports no desire to harm self or others. Onset of symptoms was April 02, 2024. Care prior to arrival: IV initiated. 20 GA, in the left wrist. 19:50 Method Of Arrival: EMS: [facility] jw7 19:50 Acuity: MARITA 3 jw7 Triage Assessment: 19:50 General: Appears in no apparent distress. comfortable, Behavior is calm, cooperative, jw7 appropriate for age. Pain: Denies pain. EENT: No deficits noted. No signs and/or symptoms were reported regarding the EENT system. Neuro: Level of Consciousness is awake, alert, obeys commands, Oriented to person, place, time, situation. Cardiovascular: Heart tones S1 S2 present Capillary refill < 3 seconds Clubbing of nail beds is absent JVD is absent Patient's skin is warm and dry. Respiratory: Airway is patent Trachea midline Respiratory effort is even, unlabored, Respiratory pattern is regular, symmetrical, Breath sounds are clear bilaterally. GI: Abdomen is flat, non-distended, Bowel sounds present X 4 quads. Abd is soft and non tender X 4 quads. Reports nausea. : No deficits noted. No signs and/or symptoms were reported regarding the genitourinary system. Derm: Skin is intact, is healthy with good turgor, Skin is dry, Skin is normal, Skin temperature is warm. Musculoskeletal: Circulation, motion, and sensation intact. Range of motion: intact in all extremities. Historical: - Allergies: 19:50 Morphine; jw7 - Home Meds: 19:50 Bupropion Oral [Active]; Fluoxetine Oral [Active]; levothyroxine oral [Active]; jw7 gabapentin oral [Active]; Lorazepam Oral [Active]; - PMHx: 19:50 COPD; depressive disorder; Hypertensive disorder; Anxiety; jw7 - PSHx: 19:50 section; Tummy Tuck; jw7 - Immunization history:: Adult Immunizations up to date, Client reports having NOT received the Covid vaccine. Pneumococcal vaccine is up to date, Flu vaccine is not up to date. - Infectious Disease History:: Denies. - Family history:: not pertinent. - Social history:: Smoking status: Patient denies any tobacco usage or history of. Patient/guardian denies using alcohol, street drugs, IV drugs. Screenin:00 [facility] ED Fall Risk Assessment (Adult) History of falling in the last 3 months, jw7 including since admission No falls in past 3 months (0 pts) Confusion or Disorientation No (0 pts) Intoxicated or Sedated No (0 pts) Impaired Gait No (0 pts) Mobility Assist Device Used No (0 pt) Altered Elimination No (0 pt) Score/Fall Risk Level 0 - 2 = Low Risk Oriented to surroundings, Maintained a safe environment, Educated pt \T\ family on fall prevention, incl call for assistance when getting out of bed. Abuse screen: Denies threats or abuse. Denies injuries from another. Nutritional screening: No deficits noted. Tuberculosis screening: No symptoms or risk factors identified. Assessment: 20:00 General: See Triage Assessment. jw7 21:00 Reassessment: Patient appears in no apparent distress at this time. No changes from jw7 previously documented assessment. Patient and/or family updated on plan of care and expected duration. Pain level reassessed. Patient is alert, oriented x 3, equal unlabored respirations, skin warm/dry/pink. 22:00 Reassessment: Patient appears in no apparent distress at this time. No changes from jw7 previously documented assessment. Patient and/or family updated on plan of care and expected duration. Pain level reassessed. Patient is alert, oriented x 3, equal unlabored respirations, skin warm/dry/pink. 23:00 Reassessment: Patient appears in no apparent distress at this time. No changes from jw7 previously documented assessment. Patient and/or family updated on plan of care and expected duration. Pain level reassessed. Patient is alert, oriented x 3, equal unlabored respirations, skin warm/dry/pink. 23:30 Reassessment: c/o abdominal pain rated 8/10, provider notified. jw7 04/04 00:00 Reassessment: Patient appears in no apparent distress at this time. Patient and/or jw7 family updated on plan of care and expected duration. Pain level reassessed. Patient is alert, oriented x 3, equal unlabored respirations, skin warm/dry/pink. Patient states symptoms have improved. 01:00 Reassessment: Patient appears in no apparent distress at this time. No changes from jw7 previously documented assessment. Patient and/or family updated on plan of care and expected duration. Pain level reassessed. Patient is alert, oriented x 3, equal unlabored respirations, skin warm/dry/pink. 02:00 Reassessment: Patient appears in no apparent distress at this time. No changes from jw7 previously documented assessment. Patient and/or family updated on plan of care and expected duration. Pain level reassessed. Patient is alert, oriented x 3, equal unlabored respirations, skin warm/dry/pink. 03:00 Reassessment: Patient appears in no apparent distress at this time. No changes from jw7 previously documented assessment. Patient and/or family updated on plan of care and expected duration. Pain level reassessed. Patient is alert, oriented x 3, equal unlabored respirations, skin warm/dry/pink. 04:00 Reassessment: Patient appears in no apparent distress at this time. No changes from jw7 previously documented assessment. Patient and/or family updated on plan of care and expected duration. Pain level reassessed. Patient is alert, oriented x 3, equal unlabored respirations, skin warm/dry/pink. 05:00 Reassessment: Patient appears in no apparent distress at this time. No changes from jw7 previously documented assessment. Patient and/or family updated on plan of care and expected duration. Pain level reassessed. Patient is alert, oriented x 3, equal unlabored respirations, skin warm/dry/pink. 06:00 Reassessment: Patient appears in no apparent distress at this time. No changes from jw7 previously documented assessment. Patient and/or family updated on plan of care and expected duration. Pain level reassessed. Patient is alert, oriented x 3, equal unlabored respirations, skin warm/dry/pink. Vital Signs: 04/03 19:50 BP 159 / 86; Pulse 74; Resp 20 S; Temp 98.1(O); Pulse Ox 96% on R/A; Weight 48.08 kg; jw7 Height 5 ft. 3 in. ; Pain 0/10; 20:30 BP 187 / 74; Pulse 68; Resp 18 S; Pulse Ox 97% on R/A; jw7 21:00 BP 188 / 78; Pulse 70; Resp 19 S; Pulse Ox 97% on R/A; jw7 21:30 BP 157 / 74; Pulse 66; Resp 17 S; Pulse Ox 96% on R/A; jw7 22:49 BP 198 / 91 RA Supine (auto/reg); ty 23:30 BP 186 / 69; Pulse 64; Resp 16 S; Pulse Ox 96% on R/A; jw7 04/04 00:30 BP 177 / 66; Pulse 74; Resp 17 S; Pulse Ox 97% on R/A; jw7 01:00 BP 169 / 66; Pulse 64; Resp 15 S; Pulse Ox 94% on R/A; jw7 02:00 BP 136 / 72; Pulse 68; Resp 15 S; Pulse Ox 93% on R/A; jw7 03:00 BP 140 / 72; Pulse 51; Resp 14 S; Pulse Ox 92% on R/A; jw7 04:00 BP 161 / 74; Pulse 56; Resp 13 S; Pulse Ox 93% on R/A; jw7 05:00 BP 171 / 71; Pulse 56; Resp 16 S; Pulse Ox 91% on R/A; jw7 06:00 BP 184 / 84; Pulse 62; Resp 14 S; Pulse Ox 99% on 2 lpm NC; jw7 04/03 19:50 Body Mass Index 18.78 (48.08 kg, 160.02 cm) jw7 04/03 19:50 Pain Scale: Adult jw7 ED Course: 04/03 19:47 Patient arrived in ED. jw7 19:50 Arm band placed on. jw7 19:54 Edgar Perez MD is Attending Physician. rt 19:57 Waits, Felisa, RN is Primary Nurse. jw7 20:00 Patient has correct armband on for positive identification. Bed in low position. Call jw7 light in reach. Side rails up X2. Provided Education on: Use of Call LIght. 20:00 Maintain EMS IV. Dressing intact. Good blood return noted. Site clean \T\ dry. Gauge \T\ jw 7 site: 20G L Wrist. 21:00 XRAY Chest (1 view) In Process Unspecified. EDMS 21:43 Triage completed. jw7 22:34 Assisted to bathroom. ty 04/04 00:04 CT Abd/Pelvis - IV Contrast Only In Process Unspecified. EDMS 02:10 Assist provider with chest tube insertion with 16 Fr. in left lateral chest wall. Tray jw7 was set up. Attached to wall suction, Chest tube inserted by Edgar Perez MD Placement verified by CXR, return of air, Dressed with Vaseline gauze, foam tape, Patient tolerated well. 02:20 Chest Single View XRAY In Process Unspecified. EDMS 03:08 Oh [place] MD is Hospitalizing Provider. rt 06:32 Patient admitted, IV remains in place. jw7 Administered Medications: 04/03 20:24 Drug: NS 0.9% IV 1000 ml IV at 1 bolus Per protocol; 1000 mL bolus Route: IV; Rate: 1 jw7 bolus; Site: left wrist; 22:51 Follow up: Response: No adverse reaction; IV Status: Completed infusion; IV Intake: jw7 1000ml 20:24 Drug: Ondansetron IVP 4 mg IVP once; over 2 minutes Route: IVP; Site: left wrist; jw7 21:00 Follow up: Response: No adverse reaction; Marked relief of symptoms jw7 23:34 Drug: Promethazine IVP 12.5 mg IVP once Route: IVP; Site: left wrist; jw7 04/04 01:11 Follow up: Response: No adverse reaction; Marked relief of symptoms jw7 04/03 23:42 Drug: fentaNYL (PF) IVP 75 mcg IVP once Route: IVP; Site: left wrist; jw7 04/04 01:10 Follow up: Response: No adverse reaction; Marked relief of symptoms; Pain is decreased jw7 01:50 Drug: fentaNYL (PF) IVP 50 mcg IVP once Route: IVP; Site: left wrist; jw7 04:34 Follow up: Response: No adverse reaction; Marked relief of symptoms; Pain is decreased jw7 Medication: 02:12 VIS not applicable for this client. jw7 Intake: 04/03 22:51 IV: 1000ml; Total: 1000ml. jw7 Outcome: 04/04 03:08 Decision to Hospitalize by Provider. rt 06:32 Admitted to Med/surg accompanied by nurse, via stretcher, room 209, with oxygen, jw7 06:32 Condition: stable 06:32 Instructed on the need for admit, Demonstrated understanding of instructions, 06:32 Patient left the ED. jw7 Signatures: Dispatcher [employer] EDMS Felisa Lee RN RN jw7 Edgar Perez MD MD rt Kevyn Mcallister Corrections: (The following items were deleted from the chart) 00:37 06/02 23:00 Reassessment: Patient appears in no apparent distress at this time. Patient jw7 and/or family updated on plan of care and expected duration. Pain level reassessed. Patient is alert, oriented x 3, equal unlabored respirations, skin warm/dry/pink. c/o abdominal pain, provider notified jw7 04/04 00:38 00:00 Reassessment: Patient appears in no apparent distress at this time. No changes jw7 from previously documented assessment. Patient and/or family updated on plan of care and expected duration. Pain level reassessed. Patient is alert, oriented x 3, equal unlabored respirations, skin warm/dry/pink. jw7
[2024-04-04] MEDS ORDERED: ACETAMINOPHEN 325 MG TABLET PO PRN (03:29)
[2024-04-04] MEDS ORDERED: ALBUTEROL 2.5 MG/3 ML NEB SOL NEB PRN ×2 (03:29→10:50)
--- NOTE | 2024-04-04 03:30 | P.HP ---
Certification for Inpatient Patient admitted to: Inpatient With expected LOS: >2 Midnights Practitioner: I am a practitioner with admitting privileges, knowledge of patient current condition, hospital course, and medical plan of care. Services: Services provided to patient in accordance with Admission requirements found in Title 42 Section 412.3 of the Code of Federal Regulations Patient History Date of Service: 04/04/24 Reason for admission: Shortness of breath History of Present Illness: 78 yrs old Female with past medical history of COPD, depression, hypertension, anxiety who presented to the ER with generalized weakness and shortness of breath . Patient has not been eating well for the last few weeks and has not been feeling well and has generalized weakness lightheadedness with for the past few days. Patient has nausea but no vomiting. No fever or chills. She has shortness of breath which has been progressively worsening over the last few days. Patient was assessed in the ER and was found to have left spontaneous pneumothorax and chest tube has been placed by ER doctor and is being admitted for further management Allergies morphine Allergy (Verified 01/08/15 08:35) Rash Home medications list reviewed: Yes Home Medications: Albuterol Sulfate [Albuterol Sulfate Hfa] 1 puff IN BID PRN 01/21/24 Fluoxetine HCl [Prozac] 40 mg PO DAILY 01/21/24 Fluticasone/Umeclidin/Vilanter [Trelegy Ellipta 100-62.5-25] 1 each IH DAILY 01/21/24 Gabapentin 600 mg PO BEDTIME 01/21/24 Levothyroxine [Synthroid*] 1 tab PO BEDTIME 01/21/24 Montelukast Sodium [Singulair] 10 mg PO BEDTIME 01/21/24 Pantoprazole [Protonix Tab*] 1 tab PO DAILY 01/21/24 buPROPion HCL [Bupropion Xl] 300 mg PO DAILY 01/21/24 Albuterol Neb [Proventil 0.083% Neb Soln] 2.5 mg NEB [id number] PRN amp 01/22/24 Aspirin Chewable [Aspirin Chewable*] 81 mg PO DAILY tab.chew 01/22/24 Atorvastatin Calcium [Lipitor] 40 mg PO BEDTIME tab 01/22/24 Benzonatate [Tessalon Perle*] 200 mg PO TID PRN cap 01/22/24 Enoxaparin Sodium [Lovenox 60 MG INJ*] 50 mg SQ Q12HR syr 01/22/24 Ipratropium Neb [Atrovent*] 0.5 mg NEB [id number] amp 01/22/24 Metoprolol Succinate [Toprol Xl*] 50 mg PO BID 6AM 6PM tab 01/22/24 Ondansetron [Zofran*] 4 mg IV Q6HP PRN vial 01/22/24 Pantoprazole [Protonix Tab*] 40 mg PO DAILYAC tab 01/22/24 clonazePAM [Klonopin*] 0.5 mg PO TID tab 01/22/24 guaiFENesin [Robitussin 100MG/5ML*] 5 ml PO QID PRN 01/22/24 predniSONE [Prednisone*] 20 mg PO BID tab 01/22/24 - Past Medical/Surgical History Diabetic: No Past Medical History: Reviewed- Non-Contributory -: COPD -: Asthma Past Surgical History: Reviewed- Non-Contributory -: tummy tuck -: cervical fusion - Family History Family History: Reviewed- Non-Contributory - Social History Smoking Status: Former smoker Review of Systems 10-point ROS is otherwise unremarkable Physical Examination - Vital Signs Temperature: 97.8 F Blood Pressure: 122/76 Pulse: 90 Respirations: 20 Pulse Ox (%): 94 - Physical Exam General: Alert, Oriented x3, Cooperative, Mild distress HEENT: Atraumatic, Normocephalic Neck: Supple, 2+ carotid pulse no bruit Respiratory: Diminished, Crackles/rales Cardiovascular: Regular rate/rhythm, Normal S1 S2 Capillary refill: <2 Seconds Gastrointestinal: Soft and benign, W/out hepatosplenomegaly Musculoskeletal: No clubbing, No swelling Integumentary: No rashes, No breakdown Neurological: Normal speech, Normal strength at 5/5 x4 extr Lymphatics: No axilla or inguinal lymphadenopathy - Studies Laboratory Data (last 24 hrs) 04/03/24 04/03/24 20:15 20:15 WBC 9.20 Hgb 12.4 Hct 35.8 L Plt Count 471 H Sodium 127 L Potassium 3.9 BUN 7 Creatinine 0.63 Glucose 93 Magnesium 1.6 Total Bilirubin 0.4 AST 20 ALT 15 Alkaline Phosphatase 226 H Assessment and Plan - Problems (Diagnosis) (1) Acute exacerbation of chronic obstructive pulmonary disease (COPD) Current Visit: No Status: Acute Plan: COPD exacerbation Acute hypoxic respiratory failure Monitor closely on telemetry Started on bronchodilators Oxygen supplementation Steroids added Chest x-ray findings noted Pulmonology consult if not better in the a.m. Spontaneous pneumothorax left side Appreciate help from ER MD Status post chest tube Monitor closely Hyponatremia Hypochloremia Dehydration IV fluids Monitor volume status Anxiety Continue home medications and titrate as needed GI/DVT prophylaxis Advanced directive full code Discharge Plan: Home Plan to discharge in: 48 Hours - Advance Directives Does patient have a Living Will: No Does patient have a Durable POA for Healthcare: No - Code Status/Comfort Care Code Status: Full Code Time Spent Managing Pts Care (In Minutes): 48
[2024-04-04] MEDS: ALBUTEROL 2.5 MG/3 ML NEB SOL NEB SCH (07:36)
[2024-04-04] MEDS: IPRATROPIUM BROM 0.5MG/2.5ML NEB SCH (07:36)
--- NOTE | 2024-04-04 09:14 | P.PN ---
Subjective Date of Service: 04/04/24 Chief Complaint: Shortness of breath Subjective: Improving (remains with mild nausea) <Rosa Bhatlen - Last Filed: 04/04/24 10:50> Date of Service: 04/04/24 <Alondra Adrian - Last Filed: 04/04/24 12:40> Review of Systems 10-point ROS is otherwise unremarkable Respiratory: Shortness of Breath Gastrointestinal: Nausea, Abdominal Pain Neurological: As per HPI <Rosa Bhatlen - Last Filed: 04/04/24 10:50> Physical Examination - Vital Signs Temperature: 98.1 F Blood Pressure: 184/84 Pulse: 62 Respirations: 14 Pulse Ox (%): 94 - Physical Exam General: Alert, In no apparent distress, Oriented x3, Cachectic HEENT: Atraumatic, Normocephalic Neck: Supple Respiratory: Normal air movement, Other (left pigtail cath in place, tape to left chest intact) Cardiovascular: Normal pulses Capillary refill: <2 Seconds Gastrointestinal: Soft and benign Musculoskeletal: No clubbing, No swelling Integumentary: No rashes Neurological: Normal speech, Normal tone Lymphatics: No axilla or inguinal lymphadenopathy External genitalia: Deferred Rectal: Deferred - Studies Laboratory Data (last 24 hrs) 04/03/24 04/03/24 20:15 20:15 WBC 9.20 Hgb 12.4 Hct 35.8 L Plt Count 471 H Sodium 127 L Potassium 3.9 BUN 7 Creatinine 0.63 Glucose 93 Magnesium 1.6 Total Bilirubin 0.4 AST 20 ALT 15 Alkaline Phosphatase 226 H <Rosa Bhatlen - Last Filed: 04/04/24 10:50> - Studies Laboratory Data (last 24 hrs) 04/03/24 04/03/24 20:15 20:15 WBC 9.20 Hgb 12.4 Hct 35.8 L Plt Count 471 H Sodium 127 L Potassium 3.9 BUN 7 Creatinine 0.63 Glucose 93 Magnesium 1.6 Total Bilirubin 0.4 AST 20 ALT 15 Alkaline Phosphatase 226 H <Alondra Adrian - Last Filed: 04/04/24 12:40> Assessment And Plan - Plan Assessment and Plan - Problems (Diagnosis) (1) Acute exacerbation of chronic obstructive pulmonary disease (COPD) Current Visit: No Status: Acute Plan: COPD exacerbation Acute hypoxic respiratory failure Monitor closely on telemetry Started on bronchodilators Oxygen supplementation Steroids added Chest x-ray findings noted Pulmonology consult if not better in the a.m. Spontaneous pneumothorax left side Appreciate help from ER MD Status post chest tube Monitor closely Hyponatremia Hypochloremia Dehydration IV fluids Monitor volume status Anxiety Continue home medications and titrate as needed GI/DVT prophylaxis Advanced directive full code <Rosa Bhat - Last Filed: 04/04/24 10:50> - Plan Pt seen and examined. I agree with the note by the TALEND DEVELOPER. Pt has a left chest tube in place for spontaneous PTX. Continue steroid, duoneb and 2L oxygen. Pulm is following. Will give IVF and monitor CL / NA levels. <Alondra Adrian - Last Filed: 04/04/24 12:40>
[2024-04-04] MEDS: NA CHLORIDE 0.9% 1,000 ML IV SCH (09:28)
[2024-04-04] MEDS: METHYLPREDNISOLONE 40 MG INJ IV SCH (09:28)
[2024-04-04] MEDS: ONDANSETRON 4 MG/2 ML VIAL IV PRN (09:28)
[2024-04-04] MEDS: AZITHROMYCIN IV 500 MG in NA CHLORIDE 0.9% 250 ML IVPB SCH (09:29)
[2024-04-04] MEDS: CEFTRIAXONE 1,000 MG in NA CHLORIDE 0.9% 50 ML IVPB SCH (09:30)
[2024-04-04] MEDS: ENOXAPARIN 40 MG/0.4 ML SQ SCH (09:37)
--- NOTE | 2024-04-04 10:47 | P.CNS ---
Date of Consult: 04/04/24 Reason for Consult: Left-sided pneumothorax Chief Complaint: Abdominal discomfort History of Present Illness: Patient is 78 years of age having problems since a pelvic fracture that was in December of this year this happened shortly after her pelvic fracture was treated conservatively was admitted here complaining of feeling dizzy stomach upset blood pressure was elevated eyes any shortness of breath or chest pain no recent history of falls patient was ambulated and her blood pressure medications were discontinued found to have a left-sided pneumothorax a small chest tube was inserted Allergies morphine Allergy (Verified 01/08/15 08:35) Rash Home Medications: Albuterol Sulfate [Albuterol Sulfate Hfa] 1 puff IN BID PRN 01/21/24 Fluoxetine HCl [Prozac] 40 mg PO DAILY 01/21/24 Fluticasone/Umeclidin/Vilanter [Trelegy Ellipta 100-62.5-25] 1 each IH DAILY 01/21/24 Gabapentin 600 mg PO BEDTIME 01/21/24 Levothyroxine [Synthroid*] 1 tab PO BEDTIME 01/21/24 Montelukast Sodium [Singulair] 10 mg PO BEDTIME 01/21/24 Pantoprazole [Protonix Tab*] 1 tab PO DAILY 01/21/24 buPROPion HCL [Bupropion Xl] 300 mg PO DAILY 01/21/24 Albuterol Neb [Proventil 0.083% Neb Soln] 2.5 mg NEB [id number] PRN amp 01/22/24 Aspirin Chewable [Aspirin Chewable*] 81 mg PO DAILY tab.chew 01/22/24 Atorvastatin Calcium [Lipitor] 40 mg PO BEDTIME tab 01/22/24 Benzonatate [Tessalon Perle*] 200 mg PO TID PRN cap 01/22/24 Enoxaparin Sodium [Lovenox 60 MG INJ*] 50 mg SQ Q12HR syr 01/22/24 Ipratropium Neb [Atrovent*] 0.5 mg NEB [id number] amp 01/22/24 Metoprolol Succinate [Toprol Xl*] 50 mg PO BID 6AM 6PM tab 01/22/24 Ondansetron [Zofran*] 4 mg IV Q6HP PRN vial 01/22/24 Pantoprazole [Protonix Tab*] 40 mg PO DAILYAC tab 01/22/24 clonazePAM [Klonopin*] 0.5 mg PO TID tab 01/22/24 guaiFENesin [Robitussin 100MG/5ML*] 5 ml PO QID PRN 01/22/24 predniSONE [Prednisone*] 20 mg PO DAILY PRN 04/04/24 - Past Medical/Surgical History Diabetic: No -: COPD -: Asthma -: Recent history of fall and pelvic fracture -: tummy tuck -: cervical fusion - Social History Smoking Status: Former smoker Review of Systems 10-point ROS is otherwise unremarkable General: Weakness Gastrointestinal: Abdominal Pain Physical Examination Temp Pulse Resp BP Pulse Ox 98.1 F 62 14 184/84 H 94 04/04/24 09:18 04/04/24 09:18 04/04/24 09:18 04/04/24 09:18 04/04/24 09:18 General: Alert, In no apparent distress, Oriented x3 Neck: Supple Respiratory: Clear to auscultation bilaterally, Diminished Cardiovascular: No edema, Regular rate/rhythm, Normal S1 S2 Gastrointestinal: Normal bowel sounds, Soft and benign, Non-distended Musculoskeletal: No clubbing, No swelling Integumentary: No rashes, No breakdown Laboratory Data (last 24 hrs) 04/03/24 04/03/24 20:15 20:15 WBC 9.20 Hgb 12.4 Hct 35.8 L Plt Count 471 H Sodium 127 L Potassium 3.9 BUN 7 Creatinine 0.63 Glucose 93 Magnesium 1.6 Total Bilirubin 0.4 AST 20 ALT 15 Alkaline Phosphatase 226 H - Problems (1) Pneumothorax Current Visit: Yes Status: Acute Plan: Patient is 78 years of age admitted with asymptomatic left-sided pneumothorax suspect is chronic she denies any chest pain worsening dyspnea history of COPD I have DC'd the chest tube suction we will plan to repeat the chest x-ray is no air leak noted will plan to remove the chest tube Qualifiers: Pneumothorax type: spontaneous, primary Qualified Code(s): J93.11 - Primary spontaneous pneumothorax (2) Dyspepsia Current Visit: Yes Status: Acute Plan: Patient has been complaining of dyspepsia since the fall in December does take pantoprazole abdominal CT scan was unremarkable treat hypertension patient started on losartan
[2024-04-04] MEDS: LOSARTAN POTASSIUM 50 MG TABLET PO SCH (11:13)
[2024-04-04 11:37] LABS: Specific Gravity > 1.030 (1.005-1.030); Urine Bilirubin NEGATIVE (Negative); Urine Blood Negative (Negative); Urine Clarity Clear (Clear); Urine Color Colorless (Yellow); Urine Glucose NEGATIVE (Negative); Urine Ketones 1+ (Negative); Urine Microscopic Reflex YN NO UMIC; Urine Nitrite NEGATIVE (Negative); Urine Protein NEGATIVE (Negative); Urine Urobilinogen Normal (Normal)
[2024-04-04 12:03] VITALS: BMI 18.8
[2024-04-04] MEDS ORDERED: TRAMADOL HCL 50 MG TAB PO PRN (12:54)
--- NOTE | 2024-04-04 13:03 | RAD REPORT ---
EXAM DESCRIPTION: CT ABDOMEN AND PELVIS WITH CONTRAST CLINICAL HISTORY: 78-year-old female with abdominal pain. COMPARISON: None. TECHNIQUE: Volumetric CT of the abdomen and pelvis acquired following the intravenous administration of contrast. Axial, coronal and sagittal images are provided. The study was performed using dose red uction techniques including automated exposure control and/or adjustment of the MA and/or KV accordin g to patient size, and/or iterative reconstruction techniques. FINDINGS: [employer]/Lines, tubes and hardware: None. Lower thorax: Partially visualized moderate sized left anterior lateral pneumothorax. Left lower lobe bulla formation, with a dominant 5.6 cm left lower lobe bulla. Mild bibasilar subsegmental atelectas is and/or fibrosis, with hazy groundglass opacities, and trace left pleural effusion. Partially visua lized heart is normal in size. Liver: Left hepatic periligamentous hypoattenuation, most suggestive of focal adipose tissue depositi on. Biliary tree: No intra- or extrahepatic bile duct dilation. Gallbladder: No calcified cholelithiasis or pericholecystic inflammation. Pancreas: No pancreatic les ion. Spleen: No splenic lesion. Adrenals: 5 mm superior right adrenal gland macroscopic adipose tissue containing lesion, consistent with lipid rich adenoma. Nonspecific nodular thickening of the left adrenal gland. Kidneys and ureters: Subcentimeter bilateral renal hypoattenuating observations, likely cyst, althoug h too small to characterize. No hydronephrosis. Bladder/reproductive organs: No urinary bladder lesion. Uterus not visualized. Gastrointestinal tract: Lower esophagus/stomach: Nonspecific esophagogastric mural thickening which can be seen with inadequa te distention and/or esophagogastritis. Small bowel: No discrete acute lesion. Colon: Mild colonic diverticulosis, with moderate retained colonic stool. No diverticulitis. Appendix: Normal caliber partially air-filled appendix. Peritoneum, mesentery and retroperitoneum: No free air, ascites or loculated fluid. Lymph nodes: No pathologic adenopathy based on size criteria. Vasculature: Aorta and branches: Atherosclerotic extensive aortoiliofemoral and visceral branch calcifications . IVC and veins: Subcentimeter calcified pelvic phlebolith. Portal and mesenteric vasculature: Normal. Bones: Comminuted displaced superior left pubic ramus fracture, and minimally displaced angulated inf erior pubic ramus fracture, in which the left superior pubic ramus fracture is displaced 1.6 cm infer iorly with respect to the more proximal fracture fragment. There are also bilateral sacral alar fract ures, left greater than right. The left sacroiliac fracture is slightly displaced and diastatic, and the right sacroiliac fracture is nondisplaced. Extensive degenerative changes, including multilevel spondylosis, with diffuse intervertebral disc sp [place] narrowing, marginal osteophytes, facet arthrosis and scattered subchondral sclerosis. Minimal gra de 1 retrolisthesis of L1 on L2, L2 on L3, and L3 on L4, and L4 on L5. Soft tissues: Coarse calcification involves the anterior abdominal pelvic wall and right lateral hip soft tissues. This case was discussed by telephone with Dr. Perez, who voiced understanding, at the time of di ctation 04/04/2024 at 12:30 AM. IMPRESSION: 1. Comminuted left superior and inferior pubic ramus fractures. Bilateral sacral alar fractures. 2. Partially visualized moderate left-sided pneumothorax. Trace left pleural effusion. Bullous emph ysema. 3. Atherosclerotic vascular disease. 4. Additional incidental findings as discussed. Electronically signed by: Scottie Drake MD 04/04/2024 12:52 AM CDT Due to temporary technical issues with the PACS/Fluency reporting system, reports are being signed by the in house radiologist without review as a courtesy to ensure prompt reporting. The interpreting r adiologist is fully responsible for the content of the report.
--- NOTE | 2024-04-04 13:50 | RAD REPORT ---
EXAM DESCRIPTION: XR Chest, 1 View CLINICAL HISTORY: The patient is 78 years old and is Female; chest tube TECHNIQUE: Frontal view of the chest. COMPARISON: No relevant prior studies available. FINDINGS: LUNGS: The lungs are hyperinflated with coarsened interstitial markings. No consolidat ion. PLEURAL SPACE: A trace left apical pneumothorax is present measuring approximately 1.2 cm from th e apex. HEART: Unremarkable. No cardiomegaly. MEDIASTINUM: Unremarkable. Normal mediastinal contour. BONES/JOINTS: Unremarkable. No acute fracture. SOFT TISSUES: Bilateral breast implants are present. TUBES, LINES AND DEVICES: Left-sided chest tube is noted. UPPER ABDOMEN: Unremarkable as visualized. IMPRESSION: Left sided chest tube in place with trace left apical pneumothorax. Electronically signed by: Eloise Pelletier MD 04/04/2024 02:43 AM CDT RP Due to temporary technical issues with the PACS/Fluency reporting system, reports are being signed by the in house radiologist without review as a courtesy to ensure prompt reporting. The interpreting r adiologist is fully responsible for the content of the report.
--- NOTE | 2024-04-04 14:03 | RAD REPORT ---
EXAM DESCRIPTION: RADChest Single View04/04/2024 1:15 pm CLINICAL HISTORY: chest tube connection disloged COMPARISON: Chest Single View dated 04/04/2024; Chest Single View dated 04/03/2024; Chest Single View da addie 01/22/2024; Chest Single View dated 01/21/2024 TECHNIQUE: Portable AP view of the chest. FINDINGS: The lungs are clear. Small caliber left chest tube has been retracted, now lies exterior t o and adjacent to the level of the fourth/fifth left ribs. Further cartilage retraction of the chest tube on the final image. Moderate left-sided pneumothorax, progressive since the prior exam, appears larger on the expiration images, with apical pleural separation measuring 5.4 cm. The cardiomediastin al contours are unremarkable. IMPRESSION: Small bore left chest tube is now posterior to the thoracic cavity. Enlarging left pneum othorax as above.
--- NOTE | 2024-04-04 14:06 | EKG ---
Test Date: 2024-04-03 Test Time: 20:59:20 Home Energy Consultant Supervisor: ENEDELIA MEASUREMENT RESULTS: Intervals: Rate: 64 WI: 120 QRSD: 68 QT: 428 QTc: 441 [place]: P: 56 WI: 120 QRS: 52 T: 77 INTERPRETIVE STATEMENTS: Normal sinus rhythm Low voltage QRS Borderline ECG Compared to ECG 03/16/2024 10:55:13 ST (T wave) deviation no longer present Electronically Signed On 04-04-24 14:04:41 CDT by Jamaal Madera
[2024-04-04] MEDS: KCL 20 MEQ/100 mL IVPB 20 MEQ/100 ML BAG IV SCH (14:29)
[2024-04-04] MEDS: MAGNESIUM SULFATE 1 gm IVPB 1 GM/100 ML BAG IV ONE (17:05)
--- NOTE | 2024-04-04 18:04 | RAD REPORT ---
EXAM DESCRIPTION: RADChest Single View04/04/2024 4:15 pm CLINICAL HISTORY: Pneumothorax COMPARISON: Chest Single View dated 04/04/2024; Chest Single View dated 04/04/2024; Chest Single View da addie 04/03/2024; Chest Single View dated 01/22/2024 TECHNIQUE: Portable AP view of the chest. FINDINGS: Stable to slightly improved moderate left upper lung pneumothorax. Pleural separation alie ures 4.3 cm. Small caliber percutaneous pleural catheter, with tip projecting along the periphery of the left mid hemithorax. The cardiomediastinal contours are unremarkable. IMPRESSION: Stable to slightly improved moderate left upper pneumothorax. Peripheral location of the left percutaneous pleural drainage catheter, with its tip probably within the thoracic cavity.
[2024-04-04] MEDS: clonazePAM 0.5 MG TAB PO ONE (22:36)
[2024-04-04] MEDS: HYDRALAZINE HCL 20 MG/ML VIAL IV PRN (22:36)
[2024-04-04] MEDS: HYDROCODONE/APAP 5/325 MG TAB PO PRN (22:36)
--- NOTE | 2024-04-05 09:59 | P.PN ---
Date of Service: 04/05/24 Subjective Date of Service: 04/05/24 Chief Complaint: Shortness of breath Subjective: Improving Review of Systems 10-point ROS is otherwise unremarkable Respiratory: Shortness of Breath Gastrointestinal: Nausea, Abdominal Pain Neurological: As per HPI Physical Examination - Vital Signs reviewed - Physical Exam General: Alert, In no apparent distress, Oriented x3, Cachectic HEENT: Atraumatic, Normocephalic, flushed Neck: Supple Respiratory: Normal air movement, Other (left pigtail cath in place, tape to left chest intact) Cardiovascular: Normal pulses Capillary refill: <2 Seconds Gastrointestinal: Soft and benign Musculoskeletal: No clubbing, No swelling Integumentary: No rashes Neurological: Normal speech, Normal tone Lymphatics: No axilla or inguinal lymphadenopathy External genitalia: Deferred Rectal: Deferred Assessment and Plan - Problems (Diagnosis) (1) Acute exacerbation of chronic obstructive pulmonary disease (COPD) Current Visit: No Status: Acute Plan: COPD exacerbation Acute hypoxic respiratory failure Monitor closely on telemetry Started on bronchodilators Oxygen supplementation Steroids added Repeated chest x-ray findings noted, Pigtail remains, to wall suction, pt on NRB at 10L Dr. Plummer following Spontaneous pneumothorax left side Status post chest tube (as above) Monitor closely Hyponatremia Hypochloremia Dehydration IV fluids Monitor volume status Anxiety Continue home medications and titrate as needed GI/DVT prophylaxis Advanced directive full code <Rosa Bhat - Last Filed: 04/05/24 09:56> Pt seen and examined. I agree with the note by the CASHIER RECEPTIONIST. Pt has a left chest tube in place. CXR shows stable residual moderate left apical pneumothorax. Pulm is following. <Alondra Adrian - Last Filed: 04/05/24 12:08>
--- NOTE | 2024-04-05 11:21 | RAD REPORT ---
EXAM DESCRIPTION: RADChest Single View04/05/2024 10:11 am CLINICAL HISTORY: pneumothorax COMPARISON: Chest Single View dated 04/04/2024; Chest Single View dated 04/04/2024; Chest Single View da addie 04/04/2024; Chest Single View dated 04/03/2024 TECHNIQUE: Portable AP view of the chest. FINDINGS: Left pleural drainage catheter tip now occurs laterally, projecting exterior to the thorac ic cavity. Stable residual moderate apical left pneumothorax. No focal airspace opacity. No effusion. The cardiomediastinal contours are unremarkable. IMPRESSION: Tip of the left pleural drainage catheter is now all likely exterior to the thoracic cav ity as above. Stable residual moderate left apical pneumothorax.
--- NOTE | 2024-04-05 12:30 | P.PN ---
Subjective Date of Service: 04/05/24 Chief Complaint: Left-sided pneumothorax Subjective: Improving (Patient is improving doing well no new complaints) Review of Systems General: Weakness Respiratory: Shortness of Breath Physical Examination - Vital Signs Temperature: 96.9 F Blood Pressure: 167/73 Pulse: 58 Respirations: 17 Pulse Ox (%): 100 - Physical Exam General: Alert, Oriented x3 Neck: Supple, JVD not distended Assessment And Plan - Current Problems (Diagnosis) (1) Pneumothorax Current Visit: Yes Status: Acute Plan: Patient's left-sided pneumothorax is better may be slightly improving her chest tube is now outside the pleural space plan to remove the chest tube follow the patient and if she remains stable discharge tomorrow Qualifiers: Pneumothorax type: spontaneous, primary Qualified Code(s): J93.11 - Primary spontaneous pneumothorax (2) Dyspepsia Current Visit: Yes Status: Acute Plan: Patient has been complaining of dyspepsia since the fall in December does take pantoprazole abdominal CT scan was unremarkable treat hypertension patient started on losartan
--- NOTE | 2024-04-05 12:44 | P.PN ---
Subjective Date of Service: 04/05/24 Chief Complaint: Abdominal discomfort Physical Examination - Vital Signs Temperature: 96.9 F Blood Pressure: 167/73 Pulse: 58 Respirations: 17 Pulse Ox (%): 100 Assessment And Plan - Current Problems (Diagnosis) (1) Pneumothorax Current Visit: Yes Status: Acute Plan: Patient is 78 years of age admitted with asymptomatic left-sided pneumothorax suspect is chronic she denies any chest pain worsening dyspnea history of COPD I have DC'd the chest tube suction we will plan to repeat the chest x-ray is no air leak noted will plan to remove the chest tube Qualifiers: Pneumothorax type: spontaneous, primary Qualified Code(s): J93.11 - Primary spontaneous pneumothorax (2) Dyspepsia Current Visit: Yes Status: Acute Plan: Patient has been complaining of dyspepsia since the fall in December does take pantoprazole abdominal CT scan was unremarkable treat hypertension patient started on losartan
[2024-04-05 18:46] LABS: Anion Gap 6.8 mEq/L (5.0-15.0); Potassium 3.8 mEq/L (3.5-5.1)
[2024-04-05] MEDS: clonazePAM 0.5 MG TAB PO PRN (22:08)
[2024-04-05] MEDS: NA CHLORIDE 0.9% 1,000 ML IV SCH (22:49)
[2024-04-06 06:51] LABS: Absolute Basophils 0.1 K/uL (0-0.5); Absolute Eosinophils 0.1 K/uL (0-0.5); Absolute Lymphocytes (CBC) 0.8 K/uL (0.7-4.9); Absolute Monocytes 0.9 K/uL (0.1-1.3); Basophils % 0.6 % (0-1.3); Eosinophils % 0.8 % (0-4.4); Hematocrit 33.1 % (36.0-45.0); Hemoglobin 11.1 g/dL (12.0-15.0); Lymphocytes % 4.5 % (15.3-44.8); MCH 29.9 pg (27.0-35.0); MCHC 33.6 g/dL (32.0-36.0); MPV 6.7 fL (7.6-11.3); Monocytes % 5.3 % (3.3-12.3); Neutrophils % 88.8 % (41.7-73.7); Platelets 375 thou/uL (152-406); RBC Red Blood Cell Count 3.72 M/uL (3.86-4.86); Red Cell Distribution Width 14.3 % (12.1-15.2)
[2024-04-06 07:11] LABS: AST/SGOT 12 U/L (15-37); Albumin 2.6 g/dL (3.4-5.0); Albumin/Globulin Ratio 0.8 (1.1-1.8); Alkaline Phosphatase 184 U/L (45-117); Anion Gap 8.6 mEq/L (5.0-15.0); BUN Blood Urea Nitrogen 9 mg/dL (7-18); Bicarbonate 26 mEq/L (21-32); Bilirubin Total 0.5 mg/dL (0.2-1.0); Globulin 3.1 g/dL (2.3-3.5); Glomerular Filtration Rate 95 ml/min (=/>90); Glucose Level 86 mg/dL (74-106); Potassium 3.6 mEq/L (3.5-5.1); Protein, Total 5.7 g/dL (6.4-8.2); Sodium Level 129 mEq/L (136-145)
[2024-04-06 07:20] LABS: ALT/SGPT < 14 U/L (13-56)
[2024-04-06 07:34] LABS: Blood Morphology Comment NOT SEEN (NOT SEEN); Platelet Estimate ADEQ; White Blood Cell Scan OK (OK)
[2024-04-06] MEDS: D5 0.45 NS 1,000 ML IV SCH (08:27)
--- NOTE | 2024-04-06 08:43 | RAD REPORT ---
EXAM DESCRIPTION: RADChest Single View04/06/2024 5:06 am CLINICAL HISTORY: penumothorax COMPARISON: Chest Single View dated 04/05/2024; Chest Single View dated 04/04/2024; Chest Single View da addie 04/04/2024; Chest Single View dated 04/04/2024 TECHNIQUE: Portable AP view of the chest. FINDINGS: Pleural drainage catheter is no longer visualized. Marked improvement of left apical pneum othorax with trace residual (pleura separation 4 mm). There may be small left basal component of pneu mothorax there is new. Mild patchy left basilar airspace opacities, may reflect atelectasis. Backgrou nd hyperinflation and hyperlucency suggesting COPD. No effusion. The cardiomediastinal contours are unremarkable. IMPRESSION: Marked improvement of left apical pneumothorax with trace residual. Suggestion of small left basilar pneumothorax component, new. Pleural drainage catheter has been removed.
[2024-04-06] MEDS: D5 0.9 NS 1,000 ML IV SCH (09:12)
--- NOTE | 2024-04-06 11:09 | P.PN ---
Subjective Date of Service: 04/06/24 Chief Complaint: Abdominal discomfort Pt is resting comfortably in bed. The left chest tube was removed yesterday. Pt complains of loss of appetite. Will try megace. If no improvement, will consult GI. No ther complaints. Review of Systems General: Unremarkable Eyes: Unremarkable ENT: Unremarkable Respiratory: Unremarkable Cardiovascular: Unremarkable Gastrointestinal: Unremarkable Genitourinary: Unremarkable Musculoskeletal: Unremarkable Integumentary: Unremarkable Neurological: Unremarkable Lymphatics: Unremarkable Physical Examination - Vital Signs Temperature: 97.2 F Blood Pressure: 174/75 Pulse: 83 Respirations: 20 Pulse Ox (%): 93 - Physical Exam General: Alert, In no apparent distress, Oriented x3 HEENT: Atraumatic, Normocephalic, PERRLA Neck: Supple, 2+ carotid pulse no bruit Respiratory: Clear to auscultation bilaterally, Normal air movement Cardiovascular: No edema, Normal pulses, Regular rate/rhythm, Normal S1 S2 Capillary refill: <2 Seconds Gastrointestinal: Normal bowel sounds, Soft and benign, Non-distended Musculoskeletal: No clubbing, No swelling Integumentary: No rashes, No breakdown, No significant lesion Neurological: Normal speech, Normal strength at 5/5 x4 extr, Normal tone Lymphatics: No axilla or inguinal lymphadenopathy Assessment And Plan - Plan COPD exacerbation: Will continue 4L BNC, steroid and duoneb. Pulm is following. Acute hypoxic respiratory failure with hypoxia: Due to COPD exacerbation / PTX. Will continue treatment listed above. Left sided spontaneous pneumothorax: resolved. Left chest tube is out. Pulm is following. CXR noted. Hyponatremia / Hypochloremia: Will continue IVF and trend electrolytes. Poor appetite: Will try megace. if no improvement, will consider EGD by GI. Anxiety: Continue home med GI ppx: protonix DVT ppx: SCD Dispo: Pending hospital course.
[2024-04-06] MEDS ORDERED: SODIUM CHLORIDE 0.9% 10ML INJ IV PRN (11:47)
--- NOTE | 2024-04-06 11:49 | P.PN ---
Subjective Date of Service: 04/06/24 Chief Complaint: Abdominal discomfort/pneumothorax Patient is not doing well not eating and drinking still complaining of dyspepsia eyes any shortness of breath Review of Systems General: Weakness Gastrointestinal: Nausea, Abdominal Pain Physical Examination - Vital Signs Temperature: 97.2 F Blood Pressure: 174/75 Pulse: 83 Respirations: 20 Pulse Ox (%): 93 - Physical Exam General: Alert, Oriented x3, Mild distress Respiratory: Clear to auscultation bilaterally Cardiovascular: No edema, Regular rate/rhythm, Normal S1 S2 Gastrointestinal: Normal bowel sounds, Soft and benign Assessment And Plan - Current Problems (Diagnosis) (1) Pneumothorax Current Visit: Yes Status: Acute Plan: Patient's pneumothorax has resolved chest tube was removed yesterday Qualifiers: Pneumothorax type: spontaneous, primary Qualified Code(s): J93.11 - Primary spontaneous pneumothorax (2) Dyspepsia Current Visit: Yes Status: Acute Plan: Complaining of dyspepsia nausea vomiting that is chronic and scheduled for an EGD tomorrow start on IV pantoprazole and IV fluid
[2024-04-06] MEDS: PANTOPRAZOLE 40 MG INJ IVP SCH (13:02)
[2024-04-06] MEDS: MEGESTROL 40 MG TAB PO SCH (13:02)
[2024-04-06] MEDS: PNEUMOCOCCAL VACCINE 0.5 ML IMVAC ONE (13:02)
[2024-04-06] MEDS: clonazePAM 0.5 MG TAB PO ONE (20:46)
[2024-04-07 06:08] LABS: Absolute Eosinophils 0.2 K/uL (0-0.5); Absolute Lymphocytes (CBC) 0.5 K/uL (0.7-4.9); Absolute Monocytes 0.8 K/uL (0.1-1.3); Absolute Neutrophil 9.7 K/uL (1.8-8.0); Basophils % 0.3 % (0-1.3); Hematocrit 32.7 % (36.0-45.0); Hemoglobin 11.3 g/dL (12.0-15.0); Lymphocytes % 4.3 % (15.3-44.8); MCH 30.5 pg (27.0-35.0); MCHC 34.6 g/dL (32.0-36.0); MCV 88.2 fL (80-100); MPV 6.5 fL (7.6-11.3); Monocytes % 7.4 % (3.3-12.3); Nucleated Red Blood Cells % 0.1 % (0-0); Platelets 373 thou/uL (152-406); RBC Red Blood Cell Count 3.71 M/uL (3.86-4.86); Red Cell Distribution Width 14.1 % (12.1-15.2)
[2024-04-07 06:20] LABS: Albumin 2.6 g/dL (3.4-5.0); Albumin/Globulin Ratio 0.8 (1.1-1.8); Alkaline Phosphatase 169 U/L (45-117); Anion Gap 6.9 mEq/L (5.0-15.0); BUN Blood Urea Nitrogen 6 mg/dL (7-18); Bicarbonate 27 mEq/L (21-32); Bilirubin Total 0.4 mg/dL (0.2-1.0); Globulin 3.2 g/dL (2.3-3.5); Glomerular Filtration Rate 95 ml/min (=/>90); Glucose Level 132 mg/dL (74-106); Magnesium 1.5 mg/dL (1.6-2.4); Potassium 2.9 mEq/L (3.5-5.1); Protein, Total 5.8 g/dL (6.4-8.2); Sodium Level 132 mEq/L (136-145)
[2024-04-07 06:21] LABS: ALT/SGPT < 14 U/L (13-56); AST/SGOT < 10 U/L (15-37)
[2024-04-07] MEDS: Magnesium Sulfate 2gm IVPB 2 G/50 ML BAG IV ONE (06:35)
[2024-04-07] MEDS: POTASSIUM CL SA 10 MEQ TAB PO SCH (08:00)
[2024-04-07] MEDS: KCL 20 MEQ/100 mL IVPB 20 MEQ/100 ML BAG IV SCH (10:24)
[2024-04-07 11:08] LABS: Magnesium 2.2 mg/dL (1.6-2.4); Phosphorus 2.2 mg/dL (2.5-4.9); Potassium 2.9 mEq/L (3.5-5.1)
--- NOTE | 2024-04-07 12:43 | P.PN ---
Subjective Date of Service: 04/07/24 Chief Complaint: Dyspepsia pneumothorax Patient is doing better distress. Has improved she is no longer nauseated no shortness of breath Review of Systems Unremarkable Physical Examination - Vital Signs Temperature: 98.2 F Blood Pressure: 191/79 Pulse: 81 Respirations: 97 Pulse Ox (%): 97 - Physical Exam General: Alert, In no apparent distress, Oriented x3 Neck: Supple Respiratory: Clear to auscultation bilaterally Cardiovascular: No edema, Regular rate/rhythm, Normal S1 S2 Gastrointestinal: Normal bowel sounds, Soft and benign Assessment And Plan - Current Problems (Diagnosis) (1) Pneumothorax Current Visit: Yes Status: Acute Plan: Patient is doing much better with any shortness of breath chest tube was removed yesterday the pneumothorax had resolved chest x-ray ordered for tomorrow Qualifiers: Pneumothorax type: spontaneous, primary Qualified Code(s): J93.11 - Primary spontaneous pneumothorax (2) Dyspepsia Current Visit: Yes Status: Acute Plan: Patient complaining of dyspepsia I suspect that she has significant peptic ulcer disease or reflux esophagitis is much better today on IV pantoprazole awaiting EGD (3) Hypokalemia Current Visit: Yes Status: Acute Plan: Patient has severe hypokalemia was taking triamterene/hydrochlorothiazide at home aggressive replacement of potassium
[2024-04-07] MEDS: POTASSIUM CL 40 MEQ in NA CHLORIDE 0.9% 500 ML IV SCH (13:00)
[2024-04-07] MEDS ORDERED: propofoL 200 MG/20 ML VIAL IV ONE (13:09)
[2024-04-07] MEDS ORDERED: LIDOCAINE 1% MPF 5 ML VIAL ONE (13:09)
[2024-04-07] MEDS: NA CHLORIDE 0.9% 1,000 ML ONE (13:10)
[2024-04-07] MEDS: ALBUTEROL 2.5 MG/3 ML NEB SOL ONE (13:45)
[2024-04-07] MEDS ORDERED: ENSURE CLEAR 200 ML CAN PO PRN (14:53)
--- NOTE | 2024-04-07 15:01 | P.PN ---
Subjective Date of Service: 04/07/24 Chief Complaint: Dyspepsia pneumothorax Subjective: Improving (awaiting EGD, electrolyte derangement, replacement ordered. Pt NPO for EGD at 1200) <Rosa Bhat - Last Filed: 04/07/24 14:56> Date of Service: 04/07/24 <Alondra Adrian - Last Filed: 04/07/24 17:45> Review of Systems 10-point ROS is otherwise unremarkable <Rosa Bhatlen - Last Filed: 04/07/24 14:56> Physical Examination - Vital Signs Temperature: 97.8 F Blood Pressure: 141/44 Pulse: 73 Respirations: 18 Pulse Ox (%): 97 - Physical Exam General: Alert, In no apparent distress, Oriented x3 HEENT: Atraumatic, Normocephalic Neck: Supple Respiratory: Normal air movement Cardiovascular: Regular rate/rhythm, Normal S1 S2 Capillary refill: <2 Seconds Gastrointestinal: Soft and benign Musculoskeletal: No clubbing Integumentary: No rashes, Other (flushed) Neurological: Normal speech, Normal tone, Normal affect Lymphatics: No axilla or inguinal lymphadenopathy External genitalia: Deferred Rectal: Deferred (refused Neb treatments overnight) <Rosa Bhat - Last Filed: 04/07/24 14:56> Assessment And Plan - Plan Assessment and Plan - Problems (Diagnosis) (1) Acute exacerbation of chronic obstructive pulmonary disease (COPD) Current Visit: No Status: Acute Plan: COPD exacerbation Acute hypoxic respiratory failure Monitor closely on telemetry Started on bronchodilators Oxygen supplementation Steroids added Chest x-ray findings noted Dr. Plummer following Pt improved, denies SOB, repeat CXR with improvement Hyponatremia Hypochloremia Dehydration IV fluids Monitor volume status Electrolyte derangement poor nutrition/intake Pt has been on D5NS as hyoglycemic, hyponatremic Monitor and replete Cough/Reflux/Esophagitis Protonix BID EGD - minimal findings, Dr. Rosenthal offered to do in house colonoscopy, pt declines Carafate ordered advance diet Anxiety Continue home medications and titrate as needed GI/DVT prophylaxis Advanced directive full code <Rosa Bhatlen - Last Filed: 04/07/24 14:56> - Plan Pt seen and examined. I agree with the note by the PRINTING SUPERVISOR. Pt is NPO for EGD. EGD showed gastritis and hiatla hernia. Will start CLD. Pt wants to go home. Will complete gastric emptying study on outpt with Dr. James. <Alondra Adrian - Last Filed: 04/07/24 17:45>
[2024-04-07] MEDS: SUCRALFATE 1 GM TABLET PO SCH (17:05)
[2024-04-07] MEDS: POTASSIUM PHOS 30 MM in NA CHLORIDE 0.9% 500 ML IV ONE (17:10)
--- NOTE | 2024-04-07 19:13 | P.DS ---
Admission Date: 04/04/24 Discharge Date: 04/09/24 Reason for Admission: Dyspepsia pneumothorax Consultations: Dr. Rosenthal, Dr. Plummer Procedures: Chest tube placement and subsequent removal EGD Brief History of Present Illness: 78 yrs old Female with past medical history of COPD, depression, hypertension, anxiety who presented to the ER with generalized weakness and shortness of breath . Patient has not been eating well for the last few weeks and has not been feeling well and has generalized weakness lightheadedness with for the past few days. Patient has nausea but no vomiting. No fever or chills. She has shortness of breath which has been progressively worsening over the last few days. Patient was assessed in the ER and was found to have left spontaneous pneumothorax and chest tube has been placed by ER doctor and is being admitted for further management. Hospital Course: Mrs. Hernandez did well over the course of her hospitalization. She was seen by Dr. Plummer and the pigtail catheter was removed after resolution of the left pneumothorax. Ms. Smith was not eating much during her hospitalization. Her electrolytes were repleted. She was encouraged to take in more clear liquids. She states she does not feel hungry. Protonix was added to her medications. Dr. Rosenthal performed an EGD looking for gastritis or ulcerations. The EGD was pretty unremarkable and Carafate was given before meals. Megace was started to try to increase patient's appetite. Dr. Rosenthal offered to perform a bowel prep and colonoscopy while inpatient. Mrs. Hernandez is not interested. She states she feels pretty much back to baseline and would like to go home. <Rosa Bhat - Last Filed: 04/09/24 10:23> Admission Date: 04/04/24 Discharge Date: 04/09/24 Hospital Course: Pt lamar nd examined. I agree with the note. CXR showed a small left pneumothorax. Gen surgeon cleared pt for discharge. <Alondra Adrian - Last Filed: 04/09/24 22:36> Disposition: ROUTINE DISCHARGE Discharge Condition: GOOD Vital Signs/Physical Exam: Temp Pulse Resp BP Pulse Ox 97.6 F 80 16 142/54 H 98 04/07/24 16:00 04/07/24 16:00 04/07/24 16:00 04/07/24 16:00 04/07/24 16:00 General: Alert, In no apparent distress, Oriented x3, Cachectic, Other (flushed) HEENT: Atraumatic, Normocephalic Neck: Supple, 2+ carotid pulse no bruit Respiratory: Normal air movement, Other (harsh cough) Cardiovascular: Normal pulses, Normal S1 S2 Capillary refill: <2 Seconds Gastrointestinal: Soft and benign Musculoskeletal: No clubbing Integumentary: No rashes Neurological: Normal speech, Normal tone, Normal affect Lymphatics: No axilla or inguinal lymphadenopathy External genitalia: Deferred Rectal: Deferred Laboratory Data at Discharge: WBC 11.30 thou/uL (4.3-10.9) H 04/07/24 05:38 Hgb 11.3 g/dL (12.0-15.0) L 04/07/24 05:38 Hct 32.7 % (36.0-45.0) L 04/07/24 05:38 Plt Count 373 thou/uL (152-406) 04/07/24 05:38 Sodium 132 mEq/L (136-145) L 04/07/24 05:38 Potassium 2.9 mEq/L (3.5-5.1) L 04/07/24 10:43 BUN 6 mg/dL (7-18) L 04/07/24 05:38 Creatinine 0.49 mg/dL (0.55-1.02) L 04/07/24 05:38 Glucose 132 mg/dL (74-106) H 04/07/24 05:38 Phosphorus 2.2 mg/dL (2.5-4.9) L 04/07/24 10:43 Magnesium 2.2 mg/dL (1.6-2.4) 04/07/24 10:43 Total Bilirubin 0.4 mg/dL (0.2-1.0) 04/07/24 05:38 AST < 10 U/L (15-37) L 04/07/24 05:38 ALT < 14 U/L (13-56) 04/07/24 05:38 Alkaline Phosphatase 169 U/L (45-117) H 04/07/24 05:38 <Bhat,Rosa Zackary - Last Filed: 04/09/24 10:23> Vital Signs/Physical Exam: Temp Pulse Resp BP Pulse Ox 98.1 F 82 18 139/51 L 92 04/09/24 12:00 04/09/24 12:00 04/09/24 12:00 04/09/24 12:00 04/09/24 12:00 Laboratory Data at Discharge: WBC 11.30 thou/uL (4.3-10.9) H 04/07/24 05:38 Hgb 11.3 g/dL (12.0-15.0) L 04/07/24 05:38 Hct 32.7 % (36.0-45.0) L 04/07/24 05:38 Plt Count 373 thou/uL (152-406) 04/07/24 05:38 Sodium 132 mEq/L (136-145) L 04/09/24 02:42 Potassium 3.8 mEq/L (3.5-5.1) 04/09/24 02:42 BUN 4 mg/dL (7-18) L 04/09/24 02:42 Creatinine 0.43 mg/dL (0.55-1.02) L 04/09/24 02:42 Glucose 108 mg/dL (74-106) H 04/09/24 02:42 Phosphorus 3.5 mg/dL (2.5-4.9) 04/08/24 03:38 Magnesium 2.2 mg/dL (1.6-2.4) 04/07/24 10:43 Total Bilirubin 0.4 mg/dL (0.2-1.0) 04/07/24 05:38 AST < 10 U/L (15-37) L 04/07/24 05:38 ALT < 14 U/L (13-56) 04/07/24 05:38 Alkaline Phosphatase 169 U/L (45-117) H 04/07/24 05:38 <Alondra Adrian - Last Filed: 04/09/24 22:36> Diet: AHA Activity: Ad jamir <Bhat,Rosa Zackary - Last Filed: 04/09/24 10:23> <Alondra Adrian - Last Filed: 04/09/24 22:36> Home Medications: Albuterol Sulfate [Albuterol Sulfate Hfa] 1 puff IN BID PRN 01/21/24 Fluoxetine HCl [Prozac] 40 mg PO DAILY 01/21/24 Fluticasone/Umeclidin/Vilanter [Trelegy Ellipta 100-62.5-25] 1 each IH DAILY 01/21/24 Gabapentin 600 mg PO BEDTIME 01/21/24 Levothyroxine [Synthroid*] 1 tab PO BEDTIME 01/21/24 Montelukast Sodium [Singulair] 10 mg PO BEDTIME 01/21/24 Pantoprazole [Protonix Tab*] 1 tab PO DAILY 01/21/24 buPROPion HCL [Bupropion Xl] 300 mg PO DAILY 01/21/24 Albuterol Neb [Proventil 0.083% Neb Soln] 2.5 mg NEB [id number] PRN amp 01/22/24 Benzonatate [Tessalon Perle*] 200 mg PO TID PRN cap 01/22/24 Ipratropium Neb [Atrovent*] 0.5 mg NEB [id number] amp 01/22/24 Metoprolol Succinate [Toprol Xl*] 50 mg PO BID 6AM 6PM tab 01/22/24 Ondansetron [Zofran*] 4 mg IV Q6HP PRN vial 01/22/24 Pantoprazole [Protonix Tab*] 40 mg PO DAILYAC tab 01/22/24 clonazePAM [Klonopin*] 0.5 mg PO TID tab 01/22/24 Sucralfate [Carafate*] 1 gm PO ACHS 30 Days #120 tab 04/07/24 Pantoprazole [Protonix Tab*] 40 mg PO DAILY #30 tab 04/09/24 New Medications: Sucralfate [Carafate*] 1 gm PO ACHS 30 Days #120 tab Pantoprazole [Protonix Tab*] 40 mg PO DAILY #30 tab Physician Discharge Instructions: Continue ad jamir activity. Take protonix and sucralfate with other home meds. Follow up with Dr. Rosenthal in Clinic within 1 week. Follow up with PCP within 2 weeks Followup: Chris Rosenthal MD [ACTIVE - CAN ADMIT] - 1 Week
[2024-04-07] MEDS: clonazePAM 1 MG TAB PO ONE (22:53)
[2024-04-08 04:38] LABS: Anion Gap 7.7 mEq/L (5.0-15.0); Phosphorus 3.5 mg/dL (2.5-4.9); Potassium 3.7 mEq/L (3.5-5.1)
--- NOTE | 2024-04-08 07:40 | RAD REPORT ---
[facility]10 [facility] CLINICAL HISTORY: Pneumothorax COMPARISON: April 06, 2024 FINDINGS: Left pneumothorax has mildly increased in size. No other significant change IMPRESSION: Left pneumothorax has mildly increased in size and is small to moderate to moderate in s ize. Dr. Plummer notified 7:34 a.m. April 08, 2024
[2024-04-08] MEDS: POTASSIUM CL SA 10 MEQ TAB PO ONE (10:46)
[2024-04-08] MEDS: LABETALOL 20 MG/4ML SYRINGE IV ONE ×2 (10:50→10:52)
--- NOTE | 2024-04-08 12:05 | P.PN ---
Subjective Date of Service: 04/08/24 Chief Complaint: Dyspepsia pneumothorax Patient is s/p EGD her dyspepsia has improved has any shortness of breath chest x-ray shows a moderate pneumothorax on the left side Review of Systems Unremarkable General: Weakness Physical Examination - Vital Signs Temperature: 98.3 F Blood Pressure: 147/67 Pulse: 100 Respirations: 17 Pulse Ox (%): 95 - Physical Exam General: Alert, Oriented x3 Neck: Supple Respiratory: Clear to auscultation bilaterally Cardiovascular: No edema, Normal pulses, Regular rate/rhythm Assessment And Plan - Current Problems (Diagnosis) (1) Pneumothorax Current Visit: Yes Status: Acute Plan: Patient has not developed a significant left-sided pneumothorax is recurrent plan to do a chest tube and will also need a pleurodesis Qualifiers: Pneumothorax type: spontaneous, primary Qualified Code(s): J93.11 - Primary spontaneous pneumothorax (2) Dyspepsia Current Visit: Yes Status: Acute Plan: Patient's dyspepsia has improved (3) Hypokalemia Current Visit: Yes Status: Acute Plan: Mildly hypokalemic
--- NOTE | 2024-04-08 12:43 | P.PN ---
Subjective Date of Service: 04/08/24 Chief Complaint: Dyspepsia pneumothorax Pt is resting comfortably in bed. Pt had a coughing spell last night. Repeat CXR shows left pneumothorax that mildly increased in size. Consulted Pulm. Will need chest tube and pleurodesis for recurrent PTX. Pt ate a little bit of her breakfast this am. No ther complaints. Review of Systems General: Unremarkable Eyes: Unremarkable ENT: Unremarkable Respiratory: Unremarkable Cardiovascular: Unremarkable Gastrointestinal: Unremarkable Genitourinary: Unremarkable Musculoskeletal: Unremarkable Integumentary: Unremarkable Neurological: Unremarkable Lymphatics: Unremarkable Physical Examination - Vital Signs Temperature: 98.3 F Blood Pressure: 147/67 Pulse: 100 Respirations: 17 Pulse Ox (%): 95 - Physical Exam General: Alert, In no apparent distress, Oriented x3 HEENT: Atraumatic, Normocephalic, PERRLA Neck: Supple, 2+ carotid pulse no bruit, JVD not distended Respiratory: Clear to auscultation bilaterally, Normal air movement Cardiovascular: No edema, Normal pulses Capillary refill: <2 Seconds Gastrointestinal: Normal bowel sounds, Soft and benign, Non-distended Musculoskeletal: No clubbing, No swelling Integumentary: No rashes, No breakdown, No significant lesion Neurological: Normal speech, Normal strength at 5/5 x4 extr, Normal tone, Sensation intact Lymphatics: No axilla or inguinal lymphadenopathy Assessment And Plan - Plan COPD exacerbation: Will continue NRB mask, steroid and duoneb. Pulm is following. Acute hypoxic respiratory failure with hypoxia: Due to COPD exacerbation / PTX. Will continue treatment listed above. Left sided spontaneous pneumothorax: Recurrent. Will continue NRB mask. Consult Pulm. CXR shows increase in the size of pneumothorax. Pulm is following. Hyponatremia / Hypochloremia: Na is 133. Will continue IVF and trend electrolytes. Poor appetite: Improved. She ate a little bit of her breakfast this am. if no improvement, will consider EGD by GI. Htn: Will give prn labetalol. Anxiety: Continue home med GI ppx: protonix DVT ppx: SCD Dispo: Pending hospital course.
[2024-04-08] MEDS: clonazePAM 0.5 MG TAB PO PRN (20:41)
[2024-04-09 03:37] LABS: Anion Gap 5.8 mEq/L (5.0-15.0); Potassium 3.8 mEq/L (3.5-5.1)
--- NOTE | 2024-04-09 07:03 | RAD REPORT ---
EXAM DESCRIPTION: RAD - Chest Single View - 04/09/2024 5:41 am CLINICAL HISTORY: pneumothorax COMPARISON: Chest Single View dated 04/08/2024; Chest Single View dated 04/06/2024; Chest Single View da addie 04/05/2024; Chest Single View dated 04/04/2024; Chest Single View dated 04/04/2024; Chest Single View d ated 04/03/2024; Chest Single View dated 04/04/2024; Abdomen Pelvis W Contrast dated 04/04/2024 FINDINGS: Lines: None. Lungs: Opacities at the left lung base. Pleural: Blunted left costophrenic angle. There is some mixed opacity and lucency at the left lung ba se. No significant apical pneumothorax. Cardiac: The heart size is within normal limits. Mediastinum: Within normal limits. Bones: No acute fractures. Other: None IMPRESSION: Airspace disease at the left lung base likely combination of pleural fluid, probable ate lectasis, and possibly a small left basilar pneumothorax. The suspected pleural effusion has increase d since yesterday but is small.
[2024-04-09] MEDS: PANTOPRAZOLE 40MG TABLET PO SCH (08:42)
[2024-04-09 09:15] VITALS: O2SAT 99
--- NOTE | 2024-04-09 09:55 | P.PN ---
Subjective Date of Service: 04/09/24 Chief Complaint: Dyspepsia pneumothorax Pt is resting comfortably in bed. Pt had a coughing spell last night. Repeat CXR shows a small left pneumothorax. Continue NRB mask. Gen surgeon will evaluate pt this am. Consulted Pulm. No ther complaints. Review of Systems General: Unremarkable Eyes: Unremarkable ENT: Unremarkable Respiratory: Unremarkable Cardiovascular: Unremarkable Gastrointestinal: Unremarkable Genitourinary: Unremarkable Musculoskeletal: Unremarkable Integumentary: Unremarkable Neurological: Unremarkable Lymphatics: Unremarkable Physical Examination - Vital Signs Temperature: 98.2 F Blood Pressure: 158/59 Pulse: 70 Respirations: 20 Pulse Ox (%): 100 - Physical Exam General: Alert, In no apparent distress, Oriented x3 HEENT: Atraumatic, Normocephalic, PERRLA Neck: Supple, 2+ carotid pulse no bruit, JVD not distended Respiratory: Clear to auscultation bilaterally, Normal air movement Cardiovascular: No edema, Normal pulses, Regular rate/rhythm, Normal S1 S2 Capillary refill: <2 Seconds Gastrointestinal: Normal bowel sounds, Soft and benign, Non-distended Musculoskeletal: No clubbing, No swelling, No contractures Integumentary: No rashes, No breakdown, No significant lesion Neurological: Normal speech, Normal strength at 5/5 x4 extr, Normal tone, Sensation intact Lymphatics: No axilla or inguinal lymphadenopathy Assessment And Plan - Plan COPD exacerbation: Will continue NRB mask, steroid and duoneb. Pulm is following. Acute hypoxic respiratory failure with hypoxia: Due to COPD exacerbation / PTX. Will continue treatment listed above. Left sided spontaneous pneumothorax: Recurrent. Will continue NRB mask. Consult Pulm. CXR shows is small left pneumothorax. Gen surgeon will evaluate pt this am. Pulm is following. Hyponatremia / Hypochloremia: Na is 132. CL 102. Will continue IVF and trend electrolytes. Poor appetite: Improved. She ate a little bit of her breakfast this am. if no improvement, will consider EGD by GI. Htn: Will give prn labetalol. Anxiety: Continue home med GI ppx: protonix DVT ppx: SCD Dispo: Pending hospital course.
--- NOTE | 2024-04-09 10:13 | RAD REPORT ---
EXAM DESCRIPTION: RAD - Chest Pa And Lat (2 Views) - 04/09/2024 10:02 am CLINICAL HISTORY: HX of pneumothorax COMPARISON: Chest Single View dated 04/09/2024; Chest Single View dated 04/08/2024; Chest Single View da addie 04/06/2024; Chest Single View dated 04/05/2024 FINDINGS: No appreciable left-sided pneumothorax. Increasing left pleural fluid. There may also be u nderlying atelectasis. Right lung remains clear . IMPRESSION: No appreciable pneumothorax. Small left pleural effusion which has modestly increased in size.
--- NOTE | 2024-04-09 10:23 | P.DS ---
Admission Date: 04/04/24 Discharge Date: 04/09/24 Reason for Admission: Dyspepsia pneumothorax Brief History of Present Illness: 78 yrs old Female with past medical history of COPD, depression, hypertension, anxiety who presented to the ER with generalized weakness and shortness of hilary ath . Patient has not been eating well for the last few weeks and has not been feeling well and has generalized weakness lightheadedness with for the past few days. Patient has nausea but no vomiting. No fever or chills. She has shortness of breath which has been progressively worsening over the last few days. Patient was assessed in the ER and was found to have left spontaneous pneumothorax and chest tube has been placed by ER doctor and is being admitted for further management. Hospital Course: Mrs. Hernandez did well over the course of her hospitalization. She was seen by Dr. Plummer and the pigtail catheter was removed after resolution of the left pneumothorax. Ms. Smith was not eating much during her hospitalization. Her electrolytes were repleted. She was encouraged to take in more clear liquids. She states she does not feel hungry. Protonix was added to her medications. Dr. Rosenthal performed an EGD looking for gastritis or ulcerations. The EGD was pretty unremarkable and Carafate was given before meals. Megace was started to try to increase patient's appetite. Dr. Rosenthal offered to perform a bowel prep and colonoscopy while inpatient. Mrs. Hernandez is not interested. She states she feels pretty much back to baseline and would like to go home. <Rosa Bhat - Last Filed: 04/09/24 10:18> Admission Date: 04/04/24 Discharge Date: 04/09/24 Hospital Course: Pt seen and examined. I agree with the note by the GROUP ACTIVITIES AIDE. CXR shows small left pn eumothorax. Pt is asymptomatic. Gen surgeon cleared pt for discharge. She was advised to come back to the ER if she gets short of breath. Ok to discharge pt. <Alondra Adrian - Last Filed: 04/09/24 14:44> Disposition: ROUTINE DISCHARGE Discharge Condition: GOOD Vital Signs/Physical Exam: Temp Pulse Resp BP Pulse Ox 98.2 F 70 20 158/59 H 100 04/09/24 09:55 04/09/24 09:55 04/09/24 09:55 04/09/24 09:55 04/09/24 09:55 General: Alert, In no apparent distress HEENT: Atraumatic, Normocephalic Neck: Supple Respiratory: Normal air movement Cardiovascular: Normal pulses Capillary refill: <2 Seconds Gastrointestinal: Soft and benign Musculoskeletal: No clubbing, No swelling Integumentary: No rashes Neurological: Normal speech, Normal tone, Normal affect Lymphatics: No axilla or inguinal lymphadenopathy External genitalia: Deferred Rectal: Deferred Laboratory Data at Discharge: WBC 11.30 thou/uL (4.3-10.9) H 04/07/24 05:38 Hgb 11.3 g/dL (12.0-15.0) L 04/07/24 05:38 Hct 32.7 % (36.0-45.0) L 04/07/24 05:38 Plt Count 373 thou/uL (152-406) 04/07/24 05:38 Sodium 132 mEq/L (136-145) L 04/09/24 02:42 Potassium 3.8 mEq/L (3.5-5.1) 04/09/24 02:42 BUN 4 mg/dL (7-18) L 04/09/24 02:42 Creatinine 0.43 mg/dL (0.55-1.02) L 04/09/24 02:42 Glucose 108 mg/dL (74-106) H 04/09/24 02:42 Phosphorus 3.5 mg/dL (2.5-4.9) 04/08/24 03:38 Magnesium 2.2 mg/dL (1.6-2.4) 04/07/24 10:43 Total Bilirubin 0.4 mg/dL (0.2-1.0) 04/07/24 05:38 AST < 10 U/L (15-37) L 04/07/24 05:38 ALT < 14 U/L (13-56) 04/07/24 05:38 Alkaline Phosphatase 169 U/L (45-117) H 04/07/24 05:38 <Bhat,Rosa Zackary - Last Filed: 04/09/24 10:18> Vital Signs/Physical Exam: Temp Pulse Resp BP Pulse Ox 98.1 F 82 18 139/51 L 92 04/09/24 12:00 04/09/24 12:00 04/09/24 12:00 04/09/24 12:00 04/09/24 12:00 Laboratory Data at Discharge: WBC 11.30 thou/uL (4.3-10.9) H 04/07/24 05:38 Hgb 11.3 g/dL (12.0-15.0) L 04/07/24 05:38 Hct 32.7 % (36.0-45.0) L 04/07/24 05:38 Plt Count 373 thou/uL (152-406) 04/07/24 05:38 Sodium 132 mEq/L (136-145) L 04/09/24 02:42 Potassium 3.8 mEq/L (3.5-5.1) 04/09/24 02:42 BUN 4 mg/dL (7-18) L 04/09/24 02:42 Creatinine 0.43 mg/dL (0.55-1.02) L 04/09/24 02:42 Glucose 108 mg/dL (74-106) H 04/09/24 02:42 Phosphorus 3.5 mg/dL (2.5-4.9) 04/08/24 03:38 Magnesium 2.2 mg/dL (1.6-2.4) 04/07/24 10:43 Total Bilirubin 0.4 mg/dL (0.2-1.0) 04/07/24 05:38 AST < 10 U/L (15-37) L 04/07/24 05:38 ALT < 14 U/L (13-56) 04/07/24 05:38 Alkaline Phosphatase 169 U/L (45-117) H 04/07/24 05:38 <Alondra Adrian - Last Filed: 04/09/24 14:44> Diet: AHA Activity: Ad jamir <Bhat,Rosa Zackary - Last Filed: 04/09/24 10:18> <Alondra Adrian - Last Filed: 04/09/24 14:44> Home Medications: Albuterol Sulfate [Albuterol Sulfate Hfa] 1 puff IN BID PRN 01/21/24 Fluoxetine HCl [Prozac] 40 mg PO DAILY 01/21/24 Fluticasone/Umeclidin/Vilanter [Trelegy Ellipta 100-62.5-25] 1 each IH DAILY 01/21/24 Gabapentin 600 mg PO BEDTIME 01/21/24 Levothyroxine [Synthroid*] 1 tab PO BEDTIME 01/21/24 Montelukast Sodium [Singulair] 10 mg PO BEDTIME 01/21/24 Pantoprazole [Protonix Tab*] 1 tab PO DAILY 01/21/24 buPROPion HCL [Bupropion Xl] 300 mg PO DAILY 01/21/24 Albuterol Neb [Proventil 0.083% Neb Soln] 2.5 mg NEB [id number] PRN amp 01/22/24 Benzonatate [Tessalon Perle*] 200 mg PO TID PRN cap 01/22/24 Ipratropium Neb [Atrovent*] 0.5 mg NEB [id number] amp 01/22/24 Metoprolol Succinate [Toprol Xl*] 50 mg PO BID 6AM 6PM tab 01/22/24 Ondansetron [Zofran*] 4 mg IV Q6HP PRN vial 01/22/24 Pantoprazole [Protonix Tab*] 40 mg PO DAILYAC tab 01/22/24 clonazePAM [Klonopin*] 0.5 mg PO TID tab 01/22/24 Sucralfate [Carafate*] 1 gm PO ACHS 30 Days #120 tab 04/07/24 Pantoprazole [Protonix Tab*] 40 mg PO DAILY #30 tab 04/09/24 New Medications: Sucralfate [Carafate*] 1 gm PO ACHS 30 Days #120 tab Pantoprazole [Protonix Tab*] 40 mg PO DAILY #30 tab Physician Discharge Instructions: Continue ad jamir activity. Take protonix and sucralfate with other home meds. Follow up with Dr. Rosenthal in Clinic within 1 week. Follow up with PCP within 2 weeks Followup: Chris Rosenthal MD [ACTIVE - CAN ADMIT] - 1 Week
[2024-04-09] MEDS: IPRATROPIUM BROM 0.5MG/2.5ML NEB ONE (10:43)
[2024-04-09] MEDS: ALBUTEROL 2.5 MG/3 ML NEB SOL NEB ONE (10:43)
[2024-04-09 12:43] VITALS: BP 139/51; TEMP 98.1
== END 2024-04-09 13:12 | disposition home or self-care (01) | DRG 199 ==
LOC: ER 19:33 → 2ND 04-04 03:29
PROVIDERS: ADMIT Family Medicine; ATTEND Hospitalist
PROC: 0W9B30Z Drainage of Left Pleural Cavity with Drainage Device, Percutaneous Approach (ICD-10-PCS; principal; 2024-04-04)
PROC: 0DB58ZX Excision of Esophagus, Via Natural or Artificial Opening Endoscopic, Diagnostic (ICD-10-PCS; 2024-04-07)
PROC: 0DB78ZX Excision of Stomach, Pylorus, Via Natural or Artificial Opening Endoscopic, Diagnostic (ICD-10-PCS; 2024-04-07)
PROC: 0DB68ZX Excision of Stomach, Via Natural or Artificial Opening Endoscopic, Diagnostic (ICD-10-PCS; 2024-04-07)
DX: J93.11 Primary spontaneous pneumothorax (principal); J96.01 Acute respiratory failure with hypoxia; J44.1 Chronic obstructive pulmonary disease with (acute) exacerbation; E87.1 Hypo-osmolality and hyponatremia; R64 Cachexia; Z68.1 Body mass index [BMI] 19.9 or less, adult; I10 Essential (primary) hypertension; K29.30 Chronic superficial gastritis without bleeding; K44.9 Diaphragmatic hernia without obstruction or gangrene; E86.0 Dehydration; F41.9 Anxiety disorder, unspecified; E87.6 Hypokalemia; K21.9 Gastro-esophageal reflux disease without esophagitis; K20.90 Esophagitis, unspecified without bleeding; E87.8 Other disorders of electrolyte and fluid balance, not elsewhere classified; Z23 Encounter for immunization; Z88.5 Allergy status to narcotic agent; Z63.4 Disappearance and death of family member; Z79.82 Long term (current) use of aspirin; Z79.52 Long term (current) use of systemic steroids; Z28.310 Unvaccinated for COVID-19; Z79.890 Hormone replacement therapy; Z79.899 Other long term (current) drug therapy; Z87.891 Personal history of nicotine dependence
CPT/HCPCS: 36415; 71045; 71046; 74177; 80048; 80053; 80076; 81001; 81003; 83735; 84100; 84132; 84484; 85025; 88305; 88312; 90471; 90732; 93005; 94640; 94760; 96361; 96374; 96375; 99291; C9113; J0360; J0696; J1650; J2001; J2405; J2550; J2704; J2920; J3010; J3475; J3480; J7030; J7040; J7042; J7050; J7613; J7644; J7799; Q9967